=== PATIENT | male | born 1965 | race Caucasian/White ===

== ENCOUNTER 2019-09-23 07:46 | Inpatient (IN) | payer MEDICARE ==
[~2019-09-23] VITALS: Ht 185.4 cm; Wt 74.5 kg
[2019-09-23] MEDS ORDERED: FOLIC ACID1 MG PO (07:57)
[2019-09-23] MEDS ORDERED: LIPITOR80 MG PO (07:57)
[2019-09-23] MEDS ORDERED: VITAMIN B-12500 MCG PO (07:57)
[2019-09-23] MEDS ORDERED: ZETIA10 MG PO (07:57)
[2019-09-23] MEDS ORDERED: BUPROPION HCL75 MG PO (07:58)
[2019-09-23] MEDS ORDERED: FERROUS SULFAT325 MG PO (07:58)
[2019-09-23] MEDS ORDERED: OXYCONTIN10 MG PO (07:59)
[2019-09-23] MEDS ORDERED: MULTI-DAY VITAM1 TAB PO (07:59)
[2019-09-23] MEDS ORDERED: XANAX0.25 MG PO (08:00)
[2019-09-23] MEDS ORDERED: REMERON15 MG PO (08:00)
[2019-09-23] MEDS ORDERED: COREG6.25 MG PO (08:01)
[2019-09-23] MEDS ORDERED: FUROSEMIDE20 MG PO (08:02)
[2019-09-23 08:35] LABS: BASOPHILS 0.1 % (0-2); EOSINOPHILS 0 % (0-7); HEMOGLOBIN 8.5 g/dL (13.5-17.5); IMMATURE GRANULOCYTES 0.2 % (0-5); LYMPHOCYTES 9.2 % (15-50); MCH 34.3 pg (26.0-34.0); MCHC 31.5 g/dL (31.0-37.0); MCV 108.9 fL (80.0-100.0); MEAN PLATELET VOLUME 10.6 fL (7.4-10.4); NEUTROPHILS 81.5 % (40-80); PLATELET COUNT 156 10x3/uL (130-400); RBC 2.48 10x6/uL (4.20-6.10); RDW 14.5 % (11.5-14.5); WBC 17.8 10x3/uL (4.8-10.8)
[2019-09-23 08:39] LABS: CALC OSMOLALITY 295 mosm/kg (275-300); CALCIUM 9.3 mg/dL (8.5-10.1); CARBON DIOXIDE 26.7 mmol/L (21.0-32.0); CHLORIDE - SERUM 101 mmol/L (98-107); CREATININE - SERUM 2.2 mg/dL (0.6-1.3); GLUCOSE 146 mg/dL (74-106); POTASSIUM - SERUM 3.9 mmol/L (3.5-5.1); SODIUM 140 mmol/L (136-145); UREA NITROGEN 53 mg/dL (7-18); eGFR NON AFRICAN AMERICAN 33 mL/min (90-120)
[2019-09-23 09:03] LABS: ALBUMIN 2.9 g/dL (3.4-5.0); ALKALINE PHOSPHATASE 109 U/L (30-120); ALT (SGPT) 29 U/L (10-68); AMYLASE - SERUM 25 U/L (25-115); BILIRUBIN - TOTAL 2.79 mg/dL (0.2-1.3); CKMB 0.6 U/L (0.0-3.6); CREATINE KINASE 34 UL (21-232); LIPASE 58 U/L (73-393); PROTEIN - SERUM 7.2 g/dL (6.4-8.2); TROPONIN-I 0.036 ng/mL (0.000-0.060)
[2019-09-23 09:25] LABS: APTT 33.2 SECONDS (22.8-39.4); INR 1.33 (0.85-1.17); PROTIME 16.4 SECONDS (11.6-15.0)
[2019-09-23 09:37] VITALS: BP 136/80
[2019-09-23 10:30] VITALS: BP 133/86
[2019-09-23 11:30] VITALS: BP 138/86
[2019-09-23 12:20] LABS: BILIRUBIN NEGATIVE (NEGATIVE); GLUCOSE NEGATIVE (NEGATIVE); KETONE NEGATIVE (NEGATIVE); NITRITE NEGATIVE (NEGATIVE); SPECIFIC GRAVITY 1.015 (1.005-1.020)
[2019-09-23 12:21] LABS: BACTERIA FEW /hpf (NEGATIVE); EPITHELIAL CELLS 0-5 /hpf (0-5); RED CELLS - URINE 0-5 /hpf (0-5)
[2019-09-23 15:23] VITALS: BP 132/77; BMI 22.4
--- NOTE | 2019-09-23 19:30 | NUR ---
PT IN BED, AAO X 2, RESP EVEN AND UNLABORED. NO DISTRESS NOTED, CL IN REACH, SR UP X 2.
[2019-09-23 21:12] VITALS: BP 117/68
[2019-09-24] VITALS (16 sets, daily range): BP systolic 107–183; BP diastolic 68–102; Ht 185.4 cm; Wt 74.5 kg
--- NOTE | 2019-09-24 05:00 | NUR ---
I have reviewed this patient and I concur with the Shift Assessment completed by the Licensed Practical Nurse today this shift.
--- NOTE | 2019-09-24 07:31 | NUR ---
PT RESTING PEACEFULLY, LYING IN BED, EYES CLOSED, BREATHS EVEN/REGULAR AND UNLABORED. NO SIGNS OR SYMPTOMS OF ACUTE DISTRESS NOTED AT THIS TIME. CL IN REACH,S RX2, NO FAMILY AT BEDSIDE.
[2019-09-24 09:04] LABS: ALBUMIN 2.5 g/dL (3.4-5.0); ANION GAP 12.6 mmol/L (8-16); BILIRUBIN - TOTAL 1.62 mg/dL (0.2-1.3); CALCIUM 8.3 mg/dL (8.5-10.1); CARBON DIOXIDE 26.8 mmol/L (21.0-32.0); CREATININE - SERUM 1.4 mg/dL (0.6-1.3); POTASSIUM - SERUM 3.4 mmol/L (3.5-5.1); PROTEIN - SERUM 6.4 g/dL (6.4-8.2)
--- NOTE | 2019-09-24 09:24 | NUR ---
PT URNITATED ON SELF, AID WAS ASSISTING WITH CLEAN UP, STOOD PT UP AND PT HAD A LARGE DARK, TAR STOOL. POSTIIVE FOR OCCULT BLOOD, PUNGENT ODOR REMINSCENT OR GI BLEED. SPOKE WITH IVON FERREIRA, WILL CNT TO MONITOR.
[2019-09-24 09:34] LABS: BASOPHILS 0.1 % (0-2); EOSINOPHILS 0.2 % (0-7); HEMATOCRIT 20.9 % (42.0-54.0); IMMATURE GRANULOCYTES 0.1 % (0-5); LYMPHOCYTES 13.7 % (15-50); MCH 35.3 pg (26.0-34.0); MCHC 32.1 g/dL (31.0-37.0); MEAN PLATELET VOLUME 10.1 fL (7.4-10.4); MONOCYTES 10.4 % (2-11); NEUTROPHILS 75.5 % (40-80); RDW 14.3 % (11.5-14.5)
[2019-09-24 09:36] LABS: WBC 8.4 10x3/uL (4.8-10.8)
[2019-09-24 09:37] LABS: HEMOGLOBIN 6.7 g/dL (13.5-17.5); PLATELET COUNT 98 10x3/uL (130-400)
--- NOTE | 2019-09-24 10:04 | NUR ---
CALLED REPORT TO ICU. WAITING FOR BED TO BE CLEANED, WILL TRANSFER PT.
[2019-09-24 10:30] LABS: PLATELET ESTIMATE DECREASED
--- NOTE | 2019-09-24 11:15 | NUR ---
RECEIVED PT TO ROOM 2305 FROM MED 2 VIA BED. PT DOES NOT APPEAR TO BE IN ANY DISTRESS, HE STATES "I'M NERVOUS ABOUT BEING IN HERE, I MUST REALLY BE SICK IF I'M IN HERE." CALMED PT AND ORIENTED HIM AND HIS SPOUSE TO UNIT. VSS. AT BEDSIDE. WILL CONT TO MONITOR.
--- NOTE | 2019-09-24 12:00 | NUR ---
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 SAMPSON ALSO STATES HE IS COMPLETELY WITH IT WHILE THE PT IS TELLING ME ITS 2017 AND HE IS IN [place] AND HE DOESN'T KNOW WHAT MONTH OR DAY IT IS. REORIENTED PT. NO ACUTE NEEDS OR DISTRESS NOTED AT THIS TIME. WILL CONT TO MONITOR.
--- NOTE | 2019-09-24 13:00 | NUR ---
BLOOD INFUSING THROUGH 20G IV I INSERTED IN LEFT FOREARM. NO ACUTE NEEDS OR DISTRESS NOTED AT THIS TIME. VSS. WILL CONT TO MONITOR.
--- NOTE | 2019-09-24 14:00 | NUR ---
LARGE DARK BROWN/GREEN LIQUID BM NOTED. WILL CONT TO MONITOR.
--- NOTE | 2019-09-24 15:00 | NUR ---
REASSESSMENT COMPLETED PER FLOWSHEET, SEE FLOWSHEET FOR INFORMATION. PT DENIES OF ANY ACUTE NEEDS OR DISTRESS AT THIS TIME, PT RESPONSE WHEN ASKED IF HURTING OR IF HE IS OKAY "WELL I'M IN THE HOPSITAL, IN THE ICU SO WHAT DO YOU THINK?" ONCE AGAIN ASKED PT TO STATE IF HE IS IN PHYSICAL PAIN AND WHERE AT AND PT STATES "I HURT ALL OVER, ITS 06/02. I'M HURTING SO BAD. I USUALLY HURT BUT SINCE I'M IN THE HOSPITAL I'M HURTING REALLY BAD." ASKED PT WHAT HE MEANT BY 'HURTING IN THE HOSPITAL' AND PT SAYS "NOTHING I'M FINE." WILL CONT TO MONITOR.
--- NOTE | 2019-09-24 17:00 | NUR ---
PT S/O AT BEDSIDE, NO ACUTE NEEDS OR DISTRESS NOTED AT THIS TIME. VSS. WILL CONT TO MONITOR.
--- NOTE | 2019-09-24 17:31 | NUR ---
PT S/O AT BEDSIDE, STATES "HE IS NOT TO GO TO THE CHANGE AGENT IN THIS HOSPITAL WITHOUT MY KNOWLEDGE. DO YOU UNDERSTAND ME? HE IS NOT TO GO TO THE CHANGE AGENT HERE." WILL CONT TO MONITOR. VSS.
--- NOTE | 2019-09-24 19:24 | NUR ---
LAB HERE TO DRAW POST TRANSFUSION H&H
[2019-09-24 19:29] LABS: BASOPHILS 0.4 % (0-2); EOSINOPHILS 0.4 % (0-7); HEMATOCRIT 24.4 % (42.0-54.0); HEMOGLOBIN 7.9 g/dL (13.5-17.5); LYMPHOCYTES 17.8 % (15-50); MCH 33.1 pg (26.0-34.0); MCHC 32.4 g/dL (31.0-37.0); MEAN PLATELET VOLUME 9.7 fL (7.4-10.4); MONOCYTES 10.7 % (2-11); NEUTROPHILS 70.7 % (40-80)
[2019-09-24 19:30] LABS: MCV 102.1 fL (80.0-100.0); PLATELET COUNT 73 10x3/uL (130-400); RBC 2.39 10x6/uL (4.20-6.10); WBC 5.2 10x3/uL (4.8-10.8)
--- NOTE | 2019-09-24 19:45 | NUR ---
ANSWERED PTS CALL LIGHT HE IS REQUESTING PAIN MED. INFORMED IT WAS NOT TIME YET IT WAS JUST GIVEN AT 6 PM HE STATED NO I HAVENT HAD IN AWHILE. INFORMED IT WAS GIVEN PER ERNESTO AND LENORA. INFORMED WOULD GIVE SOON I COULD AND WOULD GIVE NIGHT TIME MEDS WELL. HE VERBALIZES UNDERSTANING
--- NOTE | 2019-09-24 19:54 | NUR ---
ATTEMEPT TO CALL LAB RESULTS TO PAOLA RAMON NO ANSWER
--- NOTE | 2019-09-24 19:55 | NUR ---
CALLED DR TRAMMELL WITH POST TRANSFUSION H&H RESULTS HE STATED OK FOR NOW RECHECK LAB IN AM
--- NOTE | 2019-09-24 21:45 | NUR ---
ANSWERED CALL LIGHT PT NEEDING BED BARAJAS MINIMAL ASSIST CL IN REACH
--- NOTE | 2019-09-24 22:10 | NUR ---
ANSWERED PTS CALL LIGHT REQUESTING PAIN MED SEE PRN EMAR. PT STATES 9 ON 1-10 SCALE CHRONIC JOINT PAIN
[2019-09-25] VITALS (24 sets, daily range): BP systolic 111–179; BP diastolic 59–111
--- NOTE | 2019-09-25 01:00 | NUR ---
ANSWERED CALL LIGHT PT REQUESTING PAIN MED INFORMED COULDNT GIVE YET REPOSTIONED FOR COMFORT WILL MONITOR CPOC
--- NOTE | 2019-09-25 02:10 | NUR ---
ASSISSTED PT ON BSC HE ASKS IF TIME FOR HIS PAIN MEDICATION PRN PAIN MED GIVEN SEE EMAR
--- NOTE | 2019-09-25 02:30 | NUR ---
PT HAD LARGE LIQUID DARK GREENISH BM COMPLETE LINEN CHANGE PT INCONTINENT OF URINE GETTING LINENS SOILED
--- NOTE | 2019-09-25 03:00 | NUR ---
REASSESSMENT COMPLETE SEE FLOWSHEET CPOC
[2019-09-25 03:52] LABS: BASOPHILS 0.2 % (0-2); EOSINOPHILS 0.7 % (0-7); HEMATOCRIT 24.5 % (42.0-54.0); HEMOGLOBIN 7.9 g/dL (13.5-17.5); IMMATURE GRANULOCYTES 0.2 % (0-5); MCH 33.3 pg (26.0-34.0); MCHC 32.2 g/dL (31.0-37.0); MCV 103.4 fL (80.0-100.0); MEAN PLATELET VOLUME 9.9 fL (7.4-10.4); MONOCYTES 9.8 % (2-11); NEUTROPHILS 71.1 % (40-80); PLATELET COUNT 76 10x3/uL (130-400); RBC 2.37 10x6/uL (4.20-6.10); RDW 19.9 % (11.5-14.5); WBC 4.5 10x3/uL (4.8-10.8)
[2019-09-25 03:53] LABS: CALCIUM 7.9 mg/dL (8.5-10.1); CARBON DIOXIDE 23.4 mmol/L (21.0-32.0); CHLORIDE - SERUM 109 mmol/L (98-107); GLUCOSE 94 mg/dL (74-106); POTASSIUM - SERUM 3.2 mmol/L (3.5-5.1); SODIUM 141 mmol/L (136-145)
[2019-09-25 03:58] LABS: CALC OSMOLALITY 286 mosm/kg (275-300); CREATININE - SERUM 0.9 mg/dL (0.6-1.3); UREA NITROGEN 30 mg/dL (7-18); eGFR NON AFRICAN AMERICAN > 90 mL/min (90-120)
--- NOTE | 2019-09-25 04:45 | NUR ---
ASSISTED PT TO BEDPAN MODERATE LIQUID DARK BM LINEN CHANGE
--- NOTE | 2019-09-25 07:00 | NUR ---
BEDSIDE REPORT RECEIVED. SHIFT ASSESSMENT COMPLETED PER FLOWSHEET, SEE FLOWSHEET FOR INOFRMATION. PT IS VERY CONFUSED THIS AM, PT STATES HE IS IN "[place]", HE DOESN'T KNOW WHAT YEAR IT IS, AND THAT HE NEEDS TO HELP ME LOOK FOR HIS WALLET, JACKET, RADIO, AND PRESCIRTIONS THE DOCTOR WROTE FOR HIM. SEARCHED ROOM, NONE OF THE LISTED ITEMS WERE IN ROOM, CALLED IMTIAZ WALKER FROM MED 2 THAT HAD HIM YESTERDAY AND SHE STATES HIS S/O SAMPSON TOOK HIS WALLET AND KEYS, SHE ALSO STATES THAT'S ALL HE BROUGHT WITH HIM. NO ACUTE NEEDS OR DISTRESS NOTED AT THIS TIME. VSS. WILL CONT TO MONITOR.
--- NOTE | 2019-09-25 09:00 | NUR ---
PT S/O AT BEDSIDE, STATES "HE JUST NEEDS HIS XANAX AND THAT'LL FIX HIM." PT THEN SAYS "BUT WILL THEY TAKE AWAY MY PAIN MEDICINE IF I DO THAT? THEY CAN'T TAKE AWAY MY PAIN MEDICINE." PT S/O REASSURES PT THAT "THEY WON'T DO THAT, THEY;LL STILL GIVE YOUR PAIN PILLS." THEN PT GOES TO SAY MY PAIN IS 10/10 BECAUSE I'M SO ANXIOUS, I DON'T EVEN KNOW WHAT'S GOING ON HERE. WHY AM I HERE IN THIS PLACE? WHAT IS THIS PLACE A SCHOOL?" REORIENTED PT TO HOSPITAL AND GAVE PAIN MEDICATION AFTER CLEARIFYING WITH PT THAT PAIN MEDICATION IS FOR PAIN AND NOT ANXIETY. WILL CONT TO MONITOR.
--- NOTE | 2019-09-25 10:18 | NUR ---
PT YELLING AT NURSES AT NURSES STATION, CHECK ON PT AND HE IS YELLING THAT SOMEONE STOLE HIS PHONE, WHILE THE PHONE IS IN HIS HAND. EXPLAIN TO PT THAT HE HAS HIS PHONE IN HIS HAND, PT STATES THAT "SOMEONE STOLE IT AND CHANGED IT WITH A DIFFERENT PHONE THAT LOOKS EXACTLY LIKE MINE BUT IT ISN'T MINE. PAOLA RAMON AT BEDSIDE. NO ACUTE NEEDS OR DISTRESS NOTED AT THIS TIME. WILL CONT TO MONITOR.
--- NOTE | 2019-09-25 10:28 | NUR ---
PT YELLING AT NURSES AT NURSING STATION ONCE AGAIN, PT STATES "SOMEBODY ANSWER THAT PHONE THAT IS RINGING FADUMO ASKEW" REORIENTED PT TO BEING IN HOSPITAL AND YELLING IS NOT APPROPRIATE AND INSTEAD OF YELLING USE THE CALL LIGHT. PT VERBALIED UNDERSTANDING. WILL CONT TO MONITOR.
--- NOTE | 2019-09-25 11:00 | NUR ---
REASSESSMENT COMPLETED PER FLOWSHEET, SEE FLOWSHEET FOR INFORMATION. PT STILL VERY CONFUSED. PT NO LONGER YELLING AT NURSES, HE IS NOW ON THE PHONE WITH HIS S/O BECAUSE "THEY ARE LOCKING ME UP IN HERE AND THEY WON'T LET ME LEAVE". REORIENTED PT THAT HE IS IN THE HOSPITAL IN ICU AND WE ARE NOT LOCKING HIM UP, WE ARE TRYING TO KEEP HIM SAFE. WILL CONT TO MONITOR.
--- NOTE | 2019-09-25 11:37 | NUR ---
GIVEN PO COREG PER ORDES FOR HTN. WILL CONT TO MONITOR.
--- NOTE | 2019-09-25 13:00 | NUR ---
S/O AT BEDSIDE. WILL CONT TO MONITOR.
--- NOTE | 2019-09-25 15:00 | NUR ---
REASSESSMENT COMPLETED PER FLOWSHEET, SEE FLOWSHEET FOR INFORMATION. PT VERY CONFUSED. PT IS TRYING TO PULL OUT HIS IVS AND TAKE OFF ALL MONITORING EQUIPMENT AND GOWN. REORIENTED PT TO HOSPITAL AND ICU. WILL CONT TO MONITOR.
--- NOTE | 2019-09-25 15:51 | NUR ---
PT PULLED OUT BOTH IVS AND TOOK EVERYTHING OFF, ELECTRODES, GOWN, B/P CUFF, ETC. PT TRIED TO GET UP AND WALK AROUND NAKED, ALSO TRIED TO HIT NURSE, UNSUCCESSFUL. NOTIFIED PAOLA RAMON AND S/O SAMPSON OF UPDATE. NEW ORDERS RECEIVED FROM PAOLA RAMON. WILL CONT TO MONITOR.
--- NOTE | 2019-09-25 17:00 | NUR ---
STARTED 2 NEW 20G IVS IN LEFT FOREARM. PT RESTRAINED AND STILL TRYING TO PICK AT LEADS, AND IVS. WILL CONT TO MONITOR. SAMPSON AT BEDSIDE. BLOOD STARTED IN TRANSFUSION.
--- NOTE | 2019-09-25 18:42 | NUR ---
TEMP WENT FROM 98.1 TO 99.2 DURING BLOOD TRASNFUSION. PAOLA RAMON NOTIFIED, KAILEY LEHMAN NOTIFIED. WILL CONT TO MONITOR. CALLED S/O ASMPSON AND GAVE UPDATE. WILL CONT TO MONITOR.
--- NOTE | 2019-09-25 19:30 | NUR ---
REPORT RECEIVED INITIAL ASSESSMENT OCMPLETE PT AGITATED RESTLESS CONFUSED. YELLING FOR HIS PAIN MED. HAS JUST BEEN GIVEN MEDS SEE EMAR. IN RESTRAINTS PULLING IVS OUT AND O2 OFF. BED LOW POSITION SIDE RAILS UP TIMES 3 CL IN REACH. WILL CONTINUE TO MONITOR
--- NOTE | 2019-09-25 20:18 | NUR ---
PTS SIGNIFICANT OTHER AT BEDSIDE UPDATE GIVEN.
--- NOTE | 2019-09-25 20:45 | NUR ---
PTS SIGNIFICANT OTHER OUT TO NURSES STATION STATES PT NEEDS SOMETHING FOR AGITATION ATIVAN GIVEN EARLIER NOT WORKING. REQUESTING PHYSICIAN TO BE CALLED. CALLED PAOLA RAMON ENTRY LEVEL ACCOUNTANT FOR JASMYNE INFORMED PT AGITATED RESTLESS HYPERTENSIVE COMBATIVE NEW ORDERS NOTED.
--- NOTE | 2019-09-25 21:09 | NUR ---
ATIVAN GIVEN FOR AGITATION RESTLESSNESS AND COMBATIVE PT HAS BROKEN LEFT WRIST RESTRAINT NEW RESTRAINT APPLIED. WILL CONTINUE TO MONITOR
--- NOTE | 2019-09-25 23:15 | NUR ---
PT ANGRY AGITATED YELLING "GIVE ME MY PAIN MEDICINE" ATTEMPTS TO REORIENT AND DEESCALATE NOT SUCCESSFUL OXYCODONE GIVEN PER PRN JUN PT CHEWS THE TABLETS
[2019-09-26] VITALS (24 sets, daily range): BP systolic 108–185; BP diastolic 65–102
--- NOTE | 2019-09-26 01:30 | NUR ---
PT HAS PULLED ANOTHER IV OUT 20 GUAGE STARTED TO LEFT AC AND LEFT FOREARM AFTER 4 ATTEMPTS PT COMBATIVE AND PULLING
--- NOTE | 2019-09-26 03:00 | NUR ---
REASSESSMENT COMPLETE PT HAS HAD BRIEF PERIODS WITH RESTING QUIETLY BUT WAKES UP AGITATED RESTLESS AND ANGRY DEMANDING PAIN MEDICINE. SEE ASSESSMENT FLOWSHEET. CPOC
--- NOTE | 2019-09-26 05:20 | NUR ---
PT AGITATED RESTLESS BLOOD PRESSURE ELEVATED ANGRY AND STATES "MY JOINTS HURT ALL OVER I NEED MY PAIN MEDICINE" MEDICATED PER PRN SEE EMAR
--- NOTE | 2019-09-26 06:00 | NUR ---
PT HAS NOT HAD MUCH URINE OUT GRANT PLACED IMMEDIATE RETURN OF 700 CC URINE. COMPLETE CHG BED BATH AND LINEN CHANGE SMALL BM
[2019-09-26 06:46] LABS: BILIRUBIN NEGATIVE (NEGATIVE); GLUCOSE NEGATIVE (NEGATIVE); KETONE SMALL mg/dL (NEGATIVE); NITRITE NEGATIVE (NEGATIVE); UROBILINOGEN NORMAL (NORMAL)
[2019-09-26 06:48] LABS: ALBUMIN 2.5 g/dL (3.4-5.0); ALKALINE PHOSPHATASE 91 U/L (30-120); ALT (SGPT) 27 U/L (10-68); BILIRUBIN - TOTAL 1.32 mg/dL (0.2-1.3); CALC OSMOLALITY 279 mosm/kg (275-300); CALCIUM 7.8 mg/dL (8.5-10.1); CARBON DIOXIDE 23.7 mmol/L (21.0-32.0); CHLORIDE - SERUM 108 mmol/L (98-107); GLUCOSE 88 mg/dL (74-106); POTASSIUM - SERUM 3.4 mmol/L (3.5-5.1); SODIUM 141 mmol/L (136-145); eGFR NON AFRICAN AMERICAN 82 mL/min (90-120)
[2019-09-26 06:49] LABS: BASOPHILS 0.3 % (0-2); EOSINOPHILS 0.6 % (0-7); HEMATOCRIT 27.2 % (42.0-54.0); HEMOGLOBIN 8.9 g/dL (13.5-17.5); IMMATURE GRANULOCYTES 0.3 % (0-5); LYMPHOCYTES 18.8 % (15-50); MCH 33.6 pg (26.0-34.0); MCHC 32.7 g/dL (31.0-37.0); MCV 102.6 fL (80.0-100.0); MEAN PLATELET VOLUME 10.2 fL (7.4-10.4); PLATELET COUNT 88 10x3/uL (130-400); RBC 2.65 10x6/uL (4.20-6.10); RDW 19.2 % (11.5-14.5)
[2019-09-26 06:51] LABS: UREA NITROGEN 13 mg/dL (7-18)
[2019-09-26 06:56] LABS: WBC 7.2 10x3/uL (4.8-10.8)
--- NOTE | 2019-09-26 09:58 | NUR ---
Nutrition follow-up: Pt sleeping at time of RDN visit Pt remains NPO; NGT in place Labs reviewed Wt: 165# Banana bag, folate Will need nutrition support started within 24 hours if pt remains NPO RDN following.
[2019-09-26 11:08] LABS: PLATELET ESTIMATE DECREASED
[2019-09-26 11:10] LABS: ROULEAUX OCC
--- NOTE | 2019-09-26 11:11 | NUR ---
REASSESSMENT COMPLETE, PT MORE AWAKE AT THIS TIME, DENIES ANY WANTS OR NEEDS, VSS, WILL CON'T TO MONITOR
[2019-09-27] VITALS (23 sets, daily range): BP systolic 94–194; BP diastolic 58–125
[2019-09-27 07:04] LABS: BASOPHILS 0.1 % (0-2); EOSINOPHILS 1.2 % (0-7); HEMATOCRIT 28.7 % (42.0-54.0); HEMOGLOBIN 9.3 g/dL (13.5-17.5); IMMATURE GRANULOCYTES 0.1 % (0-5); LYMPHOCYTES 13.9 % (15-50); MCH 33.3 pg (26.0-34.0); MCHC 32.4 g/dL (31.0-37.0); MCV 102.9 fL (80.0-100.0); MEAN PLATELET VOLUME 10.6 fL (7.4-10.4); MONOCYTES 15.1 % (2-11); NEUTROPHILS 69.6 % (40-80); PLATELET COUNT 96 10x3/uL (130-400); RBC 2.79 10x6/uL (4.20-6.10); RDW 18.4 % (11.5-14.5); WBC 6.7 10x3/uL (4.8-10.8)
[2019-09-27 07:08] LABS: CALC OSMOLALITY 270 mosm/kg (275-300); CALCIUM 7.6 mg/dL (8.5-10.1); CARBON DIOXIDE 24.8 mmol/L (21.0-32.0); CHLORIDE - SERUM 105 mmol/L (98-107); CREATININE - SERUM 0.9 mg/dL (0.6-1.3); GLUCOSE 87 mg/dL (74-106); POTASSIUM - SERUM 3.6 mmol/L (3.5-5.1); SODIUM 137 mmol/L (136-145); eGFR NON AFRICAN AMERICAN > 90 mL/min (90-120)
[2019-09-27 07:09] LABS: UREA NITROGEN 7 mg/dL (7-18)
[2019-09-27 07:13] LABS: HEPATITIS C ANTIBODY 0.1 S/CO RAT (0.0-0.9)
--- NOTE | 2019-09-27 15:20 | NUR ---
REASSESSMENT COMPLETE, PT NOW RESTRAINED, NO OTHER CHANGES NOTED,
[2019-09-28] VITALS (23 sets, daily range): BP systolic 99–179; BP diastolic 42–105
--- NOTE | 2019-09-28 07:14 | NUR ---
LAB HERE FOR MORNING BLOOD DRAW
--- NOTE | 2019-09-28 07:30 | NUR ---
SHIFT ASSESSMENT COMPLETE, PT IS CONFUSED LYING IN BED, ATTEMPTED TO REORIENT, ON RA WITH 97% O2 SAT. ALL PPP, VSS, WILL CON'T TO MONITOR
[2019-09-28 07:42] LABS: CALC OSMOLALITY 273 mosm/kg (275-300); CALCIUM 7.8 mg/dL (8.5-10.1); CARBON DIOXIDE 22.1 mmol/L (21.0-32.0); CHLORIDE - SERUM 108 mmol/L (98-107); CREATININE - SERUM 0.8 mg/dL (0.6-1.3); GLUCOSE 82 mg/dL (74-106); POTASSIUM - SERUM 3.2 mmol/L (3.5-5.1); SODIUM 139 mmol/L (136-145); eGFR NON AFRICAN AMERICAN > 90 mL/min (90-120)
[2019-09-28 07:45] LABS: UREA NITROGEN 5 mg/dL (7-18)
[2019-09-28 07:55] LABS: BASOPHILS 0.3 % (0-2); EOSINOPHILS 1.3 % (0-7); HEMATOCRIT 27.8 % (42.0-54.0); HEMOGLOBIN 9.2 g/dL (13.5-17.5); IMMATURE GRANULOCYTES 0.7 % (0-5); LYMPHOCYTES 13.8 % (15-50); MCH 33.7 pg (26.0-34.0); MCHC 33.1 g/dL (31.0-37.0); MCV 101.8 fL (80.0-100.0); MEAN PLATELET VOLUME 11.4 fL (7.4-10.4); MONOCYTES 16.3 % (2-11); NEUTROPHILS 67.6 % (40-80); PLATELET COUNT 94 10x3/uL (130-400); RBC 2.73 10x6/uL (4.20-6.10); RDW 17.5 % (11.5-14.5)
--- NOTE | 2019-09-28 09:00 | NUR ---
AT BEDSIDE, UPDATE GIVEN
--- NOTE | 2019-09-28 10:11 | NUR ---
Nutrition follow-up: Diet advanced to regular as tolerated this morning for breakfast. Pt continues to be confused; did not eat very much. Nurse reports pts S/O will bring pts favorite food this afternoon. Pt s/p EGD; noted pt with severe, erosive esophagitis, esophageal stricture, gastritis, portal HTN. Wt: 166# Labs reviewed Will provide food choices and honor food preferences. RDN following.
[2019-09-28 10:55] LABS: PLATELET ESTIMATE DECREASED
--- NOTE | 2019-09-28 11:25 | NUR ---
REASSESSMENT COMPLETE, NO CHANGES NOTED, PT SITTING UP IN BED, ON RA WITH 97% O2 SAT.
--- NOTE | 2019-09-28 12:00 | NUR ---
AT BEDSIDE, ASSISTING WITH LUNCH MEAL, PATIENT AWAKE AND FOLLOWING DIRECTIONS, VSS
--- NOTE | 2019-09-28 14:00 | NUR ---
SLEEPING WITH NO SIGN OF DISTRESS, AROUSABLE TO VERBAL STIMUULI, VSS, CALL LIGHT IN REACH,
--- NOTE | 2019-09-28 15:00 | NUR ---
NO ACUTE CHANGE FROM PREVIOUS ASSESSMENT, VSS, NO NEEDS AT THIS TIME, CALL LIGHT IN REACH
--- NOTE | 2019-09-28 17:30 | NUR ---
SLEEPING WITH NO SIGNS OF DISTRESS, VSS, WILL CONTINUE WITH POC
--- NOTE | 2019-09-28 20:06 | MORECARE ---
CASE MANAGEMENT DISCHARGE SUMMARY PATIENT: LUIS JOHNSON UNIT: [id number] ADM DATE: 09/23/19 AGE: 53 : 61 SEX: M ROOM/BED: D.2305 AUTHOR: MELI HERNANDEZ PHYSICIAN: REFERRING PHYSICIAN: TONYA RM MD DATE OF SERVICE: 09/28/19 Discharge Plan Patient Name: LUIS JOHNSON [facility] [facility] 1965 Planned Disposition: Anticipated Discharge Date: Discharge Date: Expected LOS: Initial Reviewer: [email or web address] Initial Review Date: 09/23/2019 Generated: 09/28/19 9:05 pm Comments DCP- Discharge Planning Updated by [email or web address]: Yenny Pulido on 09/28/19 10:[address] Interdisciplinary Team Meeting Note: Patient was admitted on 09-23-2019 with a diagnosis of SEPSIS, UNSPECIFIED ORGANISM. Interdisciplinary Team Meetings were held . In attendance were: Electrical Accessories I Assembler Dietary Nursing Pharmacist Physical Therapy Post Acute Occupational Therapy Respiratory Therapy Speech Therapy CDI IDT recommendation for Discharge Plan: WILL DISCUSS WITH PROVIDER PLAN FOR DISCHARGING PATIENT BACK HOME AND WHAT IS THE DELAY IN DISCHARGE. Anticipated Discharge date: UNKNOWN DCPIA - Discharge Planning Initial Assessment Updated by [email or web address]: Yenny Pulido on 09/28/19 8:00 pm * Is the patient Alert and Oriented? No * How many steps to enter\exit or inside your home? Patient Name: LUIS JOHNSON Page [id number] at 2006 All edits/amendments must be made on the electronic document DICTATION DATE: 09/28/192005 HEAD RESIDENT: JAXSON 09/28/19 2006 RPT#: [id number] DC DATE: STATUS: ADM IN [facility] [address] [place] [address] END OF REPORT
--- NOTE | 2019-09-28 20:19 | MORECARE ---
CASE MANAGEMENT DISCHARGE SUMMARY PATIENT: LUIS JOHNSON UNIT: [id number] ADM DATE: 09/23/19 AGE: 53 : 61 SEX: M ROOM/BED: D.2305 AUTHOR: MELI HERNANDEZ PHYSICIAN: REFERRING PHYSICIAN: TONYA RM MD DATE OF SERVICE: 09/28/19 Discharge Plan Patient Name: LUIS JOHNSON Facility: [facility]:[place] : 1965 Planned Disposition: Anticipated Discharge Date: Discharge Date: Expected LOS: Initial Reviewer: [email or web address] Initial Review Date: 09/23/2019 Generated: 09/28/19 9:18 pm Comments DCP- Discharge Planning Updated by [email or web address]: Yenny Pulido on 09/28/19 7:[address] CM wasn't able to speak to patient's significant other when he was here to visit today. CM attempted to call Kirit Galloway [phone] and didn't get an answer earlier today will try back later. CM will continue to follow and assist as needed with discharge planning / needs. DCP- Discharge Planning Updated by [id number]: Yenny Puildo on 09/28/19 10:[address] Interdisciplinary Team Meeting Note: Patient was admitted on 09-23-2019 with a diagnosis of SEPSIS, UNSPECIFIED ORGANISM. Interdisciplinary Team Meetings were held . In attendance were: Living Supervisor Dietary Nursing Pharmacist Physical Therapy Post Acute Occupational Therapy Respiratory Therapy Speech Therapy CDI IDT recommendation for Discharge Plan: WILL DISCUSS WITH PROVIDER PLAN FOR DISCHARGING PATIENT BACK HOME AND WHAT IS THE DELAY IN DISCHARGE. Anticipated Discharge date: UNKNOWN DCPIA - Discharge Planning Initial Assessment Updated by [email or web address]: Yenny Pulido on 09/28/19 8:00 pm * Is the patient Alert and Oriented? No * How many steps to enter\exit or inside your home? Last DP export: 09/28/19 7:06 p Patient Name: LUIS JOHNSON Page [phone] at 2019 All edits/amendments must be made on the electronic document DICTATION DATE: 09/28/19 2018 PROGRAM MANAGEMENT MANAGER: JAXSON 09/28/19 2018 RPT#: [id number] DC DATE: STATUS: ADM IN [facility] [address] [place] [address] END OF REPORT
[2019-09-29] VITALS (24 sets, daily range): BP systolic 82–151; BP diastolic 57–93
[2019-09-29 03:55] LABS: HEMATOCRIT 32.4 % (42.0-54.0); HEMOGLOBIN 10.8 g/dL (13.5-17.5); MCH 34.3 pg (26.0-34.0); MCHC 33.3 g/dL (31.0-37.0); MCV 102.9 fL (80.0-100.0); MEAN PLATELET VOLUME 10.9 fL (7.4-10.4); NEUTROPHILS 72.4 % (40-80); RBC 3.15 10x6/uL (4.20-6.10); RDW 17.8 % (11.5-14.5); WBC 6.1 10x3/uL (4.8-10.8)
[2019-09-29 03:59] LABS: PLATELET COUNT 121 10x3/uL (130-400)
[2019-09-29 04:09] LABS: ALBUMIN 2.3 g/dL (3.4-5.0); ALKALINE PHOSPHATASE 94 U/L (30-120); ALT (SGPT) 58 U/L (10-68); BILIRUBIN - TOTAL 0.81 mg/dL (0.2-1.3); CALC OSMOLALITY 275 mosm/kg (275-300); CALCIUM 7.7 mg/dL (8.5-10.1); CARBON DIOXIDE 23.6 mmol/L (21.0-32.0); CHLORIDE - SERUM 109 mmol/L (98-107); CREATININE - SERUM 0.9 mg/dL (0.6-1.3); GLUCOSE 95 mg/dL (74-106); POTASSIUM - SERUM 3.2 mmol/L (3.5-5.1); SODIUM 140 mmol/L (136-145); UREA NITROGEN 4 mg/dL (7-18); eGFR NON AFRICAN AMERICAN > 90 mL/min (90-120)
--- NOTE | 2019-09-29 07:30 | NUR ---
REPORT RECEIVED. PT RESTING QUIETLY. HAS TRACH TO ROOM AIR. GRANT IN PLACE. CURRENTLY IN SOFT WRIST RESTRAINTS. ASKS FOR PAIN MEDICATION. WILL GIVE WHEN AVAILABLE. VSS. WILL CONTINUE TO MONITOR.
--- NOTE | 2019-09-29 12:46 | NUR ---
DISCUSSED COREG AND LOWERING PT'S BP. GONZALO STATES HE AND DR RM HAD TAKEN PT DOWN TO 6.125 AND POSSIBLY WILL BE LOWERING. WILL SPEAK WITH WHOEVER IS ASSOCIATE JAVA DEVELOPER FOR DR RM'S GROUP.
[2019-09-30] VITALS (16 sets, daily range): BP systolic 109–177; BP diastolic 68–108
[2019-09-30 03:34] LABS: BASOPHILS 0.2 % (0-2); EOSINOPHILS 0.4 % (0-7); HEMATOCRIT 26.6 % (42.0-54.0); IMMATURE GRANULOCYTES 0.1 % (0-5); LYMPHOCYTES 10.5 % (15-50); MCH 32.8 pg (26.0-34.0); MCHC 31.6 g/dL (31.0-37.0); MCV 103.9 fL (80.0-100.0); MEAN PLATELET VOLUME 10.8 fL (7.4-10.4); NEUTROPHILS 74.8 % (40-80); RBC 2.56 10x6/uL (4.20-6.10); RDW 17.2 % (11.5-14.5)
[2019-09-30 03:47] LABS: ANION GAP 7.1 mmol/L (8-16); CALCIUM 7.1 mg/dL (8.5-10.1); CARBON DIOXIDE 25.6 mmol/L (21.0-32.0); HEMOGLOBIN 8.4 g/dL (13.5-17.5); PLATELET COUNT 165 10x3/uL (130-400)
[2019-09-30 04:06] LABS: CREATININE - SERUM 1.2 mg/dL (0.6-1.3)
[2019-09-30 04:08] LABS: POTASSIUM - SERUM 2.7 mmol/L (3.5-5.1)
--- NOTE | 2019-09-30 04:20 | NUR ---
CRITICAL RECEIVED. POTASSIUM REPLACED.
--- NOTE | 2019-09-30 10:10 | NUR ---
Nutrition follow-up: Diet: Regular PO intake 100% of meals; pt ate 2 breakfasts this morning. Labs reviewed WT: 166# PO intake good. RDN following.
--- NOTE | 2019-09-30 11:53 | NUR ---
0700 BEDSIDE REPORT OBTAINED FROM BAKARI PAPER INSERTER COMPLETE REMAINS IN BED AT PRESENT
--- NOTE | 2019-09-30 11:59 | NUR ---
0900 S.O. AT BEDSIDE REQUESTING GRANT TAKEN OUT VALERIE BARTHOLOMEW REMOVED GRANT DTV
--- NOTE | 2019-09-30 12:29 | NUR ---
1100 RESTING QUIETLY WITH EYES CLOSED
--- NOTE | 2019-09-30 12:30 | NUR ---
1300 S.O. AT BEDSIDE ASSISTING WITH LUNCH
--- NOTE | 2019-09-30 14:35 | NUR ---
1100 RICARDO CASTRO NOTIFIED FOR TRANSFER ORDERS OUT OF ICU NEW ORDERS NOTED TO TRANSFER TO FLOOR
--- NOTE | 2019-09-30 14:57 | NUR ---
Rehab Note- Acute Inpatient Acute prescreen order received. The patient is noted continued with ETOH withdrawls, discussed on IDT meeting dc plans and maybe best for patient's cognition to return home in a familiar environment. Not appropriate at this time for inpatient acute rehab, will follow at this time. Thank you for this referral! Jenae White RN Clinical Liaison, [facility]
--- NOTE | 2019-09-30 15:50 | NUR ---
1400 STANDING WITH PT TO ASSIST
--- NOTE | 2019-09-30 16:09 | MORECARE ---
CASE MANAGEMENT DISCHARGE SUMMARY PATIENT: LUIS JOHNSON UNIT: [id number] ADM DATE: 09/23/19 AGE: 53 : 61 SEX: M ROOM/BED: D.2305 AUTHOR: DAVID,DOC PHYSICIAN: REFERRING PHYSICIAN: TONYA RM MD DATE OF SERVICE: 09/30/19 Discharge Plan Patient Name: LUIS JOHNSON Facility[facility]:[place] : 1965 Planned Disposition: Anticipated Discharge Date: Discharge Date: Expected LOS: Initial Reviewer: [email or web address] Initial Review Date: 09/23/2019 Generated: 09/30/19 5:08 pm Comments DCP- Discharge Planning Updated by [email or web address]: Yenny Pulido on 09/28/19 7:[address] CM wasn't able to speak to patient's significant other when he was here to visit today. CM attempted to call Kiritvick Galloway [phone] and didn't get an answer earlier today will try back later. CM will continue to follow and assist as needed with discharge planning / needs. DCP- Discharge Planning Updated by [email or web address]: Yenny Pulido on 09/28/19 10:[address] Interdisciplinary Team Meeting Note: Patient was admitted on 09-23-2019 with a diagnosis of SEPSIS, UNSPECIFIED ORGANISM. Interdisciplinary Team Meetings were held . In attendance were: Kosher Butcher Dietary Nursing Pharmacist Physical Therapy Post Acute Occupational Therapy Respiratory Therapy Speech Therapy CDI IDT recommendation for Discharge Plan: WILL DISCUSS WITH PROVIDER PLAN FOR DISCHARGING PATIENT BACK HOME AND WHAT IS THE DELAY IN DISCHARGE. Anticipated Discharge date: UNKNOWN DCPIA - Discharge Planning Initial Assessment Updated by [email or web address]: Yenny Pulido on 09/30/19 4:06 pm * Is the patient Alert and Oriented? No * How many steps to enter\exit or inside your home? 8-10 * PCP JAG * Pharmacy [facility] * Preadmission Environment Home with Family * ADLs Independent * Equipment None * List name and contact numbers for known caregivers / representatives who currently or will assist patient after discharge: KIRIT MADRIG[employer]/ [employer]- [phone] * Verbal permission to speak to the caregivers and representatives has been obtained from the patient. N/A * Community resources currently utilized None * Additional services required to return to the preadmission environment? No * Can the patient safely return to the preadmission environment? Yes * Has this patient been hospitalized within the prior 30 days at any hospital? No Last DP export: 09/28/19 7:18 p Patient Name: LUIS JOHNSON Page [id number] at 1609 All edits/amendments must be made on the electronic document DICTATION DATE: 09/30/191607 CAMERA MACHINIST: JAXSON 09/30/191607 RPT#: [id number] DC DATE: STATUS: ADM IN [facility] [address] [place] [address] END OF REPORT
--- NOTE | 2019-09-30 16:24 | MORECARE ---
CASE MANAGEMENT DISCHARGE SUMMARY PATIENT: LUIS JOHNSON UNIT: [id number] ADM DATE: 09/23/19 AGE: 53 : 61 SEX: M ROOM/BED: D.2305 AUTHOR: DAVID,DOC PHYSICIAN: REFERRING PHYSICIAN: TONYA RM MD DATE OF SERVICE: 09/30/19 Discharge Plan Patient Name: LUIS JOHNSON Facility: [facility]:[place] : 1965 Planned Disposition: Anticipated Discharge Date: Discharge Date: Expected LOS: Initial Reviewer: [email or web address] Initial Review Date: 09/23/2019 Generated: 09/30/19 5:23 pm Comments DCP- Discharge Planning Updated by [id number]: Yenny Pulido on 09/30/19 3:[address] Late Entry 09/29/19 Patient Name: LUIS JOHNSON Admission Status: ER Accout number: [id number] Admission Date: 09-23-2019 : 1965 Admission Diagnosis:SEPSIS, UNSPECIFIED ORGANISM Attending: SAMANTHA Current LOS: 7 Anticipated DC Date: Planned Disposition: Primary Insurance: MEDICARE A & B Discharge Planning Comments: CM called and spoke with patient's SO Kirit Auguste to complete initial dc planning assessment. CM educated patient on the CM role and verbal consent given by patient to complete assessment. Patient lives at home with family. Patient is independent prior to admission. CM discussed availability of home health, rehab services, and medical equipment. Kirit stated that patient might need a walker and home health for PT & OT upon discharge. Kirit made it very clear that he did not feel that the patient is near ready for discharge. Kirit would not agree to any plan at this time he stated that he might consider Inpatient Rehab. Patient will have family to transport home. Patient denied known discharge needs at this time. CM will continue to follow and will assist as needed with dc plans/needs. Ip Architect: Yenny Pulido DCP- Discharge Planning Updated by [id number]: Yenny Pulido on 09/28/19 7:[address] CM wasn't able to speak to patient's significant other when he was here to visit today. CM attempted to call Kirit Galloway [phone] and didn't get an answer earlier today will try back later. CM will continue to follow and assist as needed with discharge planning / needs. DCP- Discharge Planning Updated by [id number]: Yenny Pulido on 09/28/19 10:[address] Interdisciplinary Team Meeting Note: Patient was admitted on 09-23-2019 with a diagnosis of SEPSIS, UNSPECIFIED ORGANISM. Interdisciplinary Team Meetings were held . In attendance were: Ip Architect Dietary Nursing Pharmacist Physical Therapy Post Acute Occupational Therapy Respiratory Therapy Speech Therapy CDI IDT recommendation for Discharge Plan: WILL DISCUSS WITH PROVIDER PLAN FOR DISCHARGING PATIENT BACK HOME AND WHAT IS THE DELAY IN DISCHARGE. Anticipated Discharge date: UNKNOWN DCPIA - Discharge Planning Initial Assessment Updated by [email or web address]: Yenny Pulido on 09/30/19 4:06 pm * Is the patient Alert and Oriented? No * How many steps to enter\exit or inside your home? 8-10 * PCP JAG * Pharmacy [facility] * Preadmission Environment Home with Family * ADLs Independent * Equipment None * List name and contact numbers for known caregivers / representatives who currently or will assist patient after discharge: KIRIT AUGUSTE -SO/ LIFE PARTNER- [phone] * Verbal permission to speak to the caregivers and representatives has been obtained from the patient. N/A * Community resources currently utilized None * Additional services required to return to the preadmission environment? No * Can the patient safely return to the preadmission environment? Yes * Has this patient been hospitalized within the prior 30 days at any hospital? No Last DP export: 09/30/19 3:09 p Patient Name: LUIS JOHNSON Page [id number] at 1624 All edits/amendments must be made on the electronic document DICTATION DATE: 09/30/191622 FABRICATION MACHINE OPERATOR: JAXSON 09/30/19 162 RPT#: [id number] DC DATE: STATUS: ADM IN [facility] [address] [place] [address] END OF REPORT
--- NOTE | 2019-09-30 16:32 | NUR ---
1410 SMALL SMEAR BROWN STOOL NOTED CHANGED LINENS AND PATIENT RETURNED TO BED FOR REST AFTER WASH UP
--- NOTE | 2019-09-30 16:32 | MORECARE ---
CASE MANAGEMENT DISCHARGE SUMMARY PATIENT: LUIS JOHNSON UNIT: [id number] ADM DATE: 09/23/19 AGE: 53 : 61 SEX: M ROOM/BED: D.2305 AUTHOR: DAVID,DOC PHYSICIAN: REFERRING PHYSICIAN: TONYA RM MD DATE OF SERVICE: 09/30/19 Discharge Plan Patient Name: LUIS JOHNSON Facility: [facility]:[place] : 1965 Planned Disposition: Anticipated Discharge Date: Discharge Date: Expected LOS: Initial Reviewer: [email or web address] Initial Review Date: 09/23/2019 Generated: 09/30/19 5:32 pm Comments DCP- Discharge Planning Updated by [email or web address]: Yenny Pulido on 09/30/19 3:[address] CM discussed patient at IDT meeting this am. CM spoke with nursing and Jose PRODUCTION PAINTER of needing a plan for discharge. Nursing will ask Kirit when he visits today if the patient has POA or a legal decision maker or family member d/t the fact that if patient has to have placement h will have to have someone sign paperwork. DCP- Discharge Planning Updated by [id number]: Yenny Pulido on 09/30/19 3:[address] Late Entry 09/29/19 Patient Name: LUIS JOHNSON Admission Status: ER Accout number: [id number] Admission Date: 09-23-2019 : 1965 Admission Diagnosis:SEPSIS, UNSPECIFIED ORGANISM Attending: SAMANTHA Current LOS: 7 Anticipated DC Date: Planned Disposition: Primary Insurance: MEDICARE A & B Discharge Planning Comments: CM called and spoke with patient's SO Kirit Auguste to complete initial dc planning assessment. CM educated patient on the CM role and verbal consent given by patient to complete assessment. Patient lives at home with family. Patient is independent prior to admission. CM discussed availability of home health, rehab services, and medical equipment. Kirit stated that patient might need a walker and home health for PT & OT upon discharge. Kirit made it very clear that he did not feel that the patient is near ready for discharge. Kirit would not agree to any plan at this time he stated that he might consider Inpatient Rehab. Patient will have family to transport home. Patient denied known discharge needs at this time. CM will continue to follow and will assist as needed with dc plans/needs. Grinder Dresser: Yenny Pulido DCP- Discharge Planning Updated by [email or web address]: Yenny Pulido on 09/28/19 7:[address] CM wasn't able to speak to patient's significant other when he was here to visit today. CM attempted to call Kirit Galloway [phone] and didn't get an answer earlier today will try back later. CM will continue to follow and assist as needed with discharge planning / needs. DCP- Discharge Planning Updated by [id number]: Yenny Pulido on 09/28/19 10:[address] Interdisciplinary Team Meeting Note: Patient was admitted on 09-23-2019 with a diagnosis of SEPSIS, UNSPECIFIED ORGANISM. Interdisciplinary Team Meetings were held . In attendance were: Grinder Dresser Dietary Nursing Pharmacist Physical Therapy Post Acute Occupational Therapy Respiratory Therapy Speech Therapy CDI IDT recommendation for Discharge Plan: WILL DISCUSS WITH PROVIDER PLAN FOR DISCHARGING PATIENT BACK HOME AND WHAT IS THE DELAY IN DISCHARGE. Anticipated Discharge date: UNKNOWN DCPIA - Discharge Planning Initial Assessment Updated by [id number]: Yenny Pulido on 09/30/19 4:06 pm * Is the patient Alert and Oriented? No * How many steps to enter\exit or inside your home? 8-10 * PCP JAG * Pharmacy [facility] * Preadmission Environment Home with Family * ADLs Independent * Equipment None * List name and contact numbers for known caregivers / representatives who currently or will assist patient after discharge: KIRIT MADRIGAL/ LIFE PARTNER- [phone] * Verbal permission to speak to the caregivers and representatives has been obtained from the patient. N/A * Community resources currently utilized None * Additional services required to return to the preadmission environment? No * Can the patient safely return to the preadmission environment? Yes * Has this patient been hospitalized within the prior 30 days at any hospital? No Last DP export: 09/30/19 3:24 p Patient Name: LUIS JOHNSON Page [id number] at 1632 All edits/amendments must be made on the electronic document DICTATION DATE: 09/30/19 1632 TRANSPORTATION MUSEUM HELPER: DM 09/30/19 1632 RPT#: [id number] DC DATE: STATUS: ADM IN [facility] [address] [place] [address] END OF REPORT
--- NOTE | 2019-09-30 16:39 | NUR ---
7787 REPORT CALLED TO SHERRIE ON MED SURG TO BE TRANSFERRED TO ROOM 2233
--- NOTE | 2019-09-30 17:48 | NUR ---
[facility] PT STATES THAT GONZALO DOROTHY HIS PARTNER HAS POA ON HIM
--- NOTE | 2019-09-30 17:49 | NUR ---
1549 PATIENT WANTS TO FINISH DINNER BEFORE TRANSFER TO MD
--- NOTE | 2019-09-30 18:14 | NUR ---
RECEIVED PATIENT FROM ICU VIA CHAIR. ACCOMPANIED BY STAFF AND FAMILY. NO C/O PAIN. NO S/S OF ACUTE DISTRESS NOTED. ALERT AND ORIENTED. REGULAR DIET, FEEDER. UP WITH PHYSICAL THERAPY, OR 2 PERSON ASSIST. IV TO LEFT WRIST, BANANA BAG INFUSING @ 125ML/HR. SITE PATENT WITHOUT REDNESS OR SWELLING. TRACH COLLAR, ON RA. DENIES ANY NEEDS AT THIS TIME. CALL LIGHT IN REACH. WILL CONTINUE TO MONITOR.
--- NOTE | 2019-09-30 18:40 | NUR ---
1838 NOTIFIED LEATHA ON MS THAT POTASSIUM RESULTLLED AND NEEDED TO BE TREATED PER ELECTROLYTES PROCOCOL
[2019-10-01] VITALS: BP 185/95
[2019-10-01 04:00] VITALS: BP 164/85
[2019-10-01 06:31] LABS: BASOPHILS 0.3 % (0-2); HEMATOCRIT 29.1 % (42.0-54.0); HEMOGLOBIN 9.2 g/dL (13.5-17.5); IMMATURE GRANULOCYTES 0.2 % (0-5); LYMPHOCYTES 12.5 % (15-50); MCH 32.7 pg (26.0-34.0); MCHC 31.6 g/dL (31.0-37.0); MCV 103.6 fL (80.0-100.0); MEAN PLATELET VOLUME 11.1 fL (7.4-10.4); MONOCYTES 11.5 % (2-11); NEUTROPHILS 74.5 % (40-80); RBC 2.81 10x6/uL (4.20-6.10); RDW 16.8 % (11.5-14.5); WBC 10.1 10x3/uL (4.8-10.8)
[2019-10-01 06:34] LABS: PLATELET COUNT 210 10x3/uL (130-400)
[2019-10-01 06:38] LABS: ANION GAP 10.2 mmol/L (8-16); CALCIUM 7.7 mg/dL (8.5-10.1); CARBON DIOXIDE 22.1 mmol/L (21.0-32.0); CREATININE - SERUM 1.2 mg/dL (0.6-1.3); POTASSIUM - SERUM 3.3 mmol/L (3.5-5.1)
--- NOTE | 2019-10-01 06:42 | NUR ---
ASSESSED AT THE BEGINNING OF THE SHIFT. PT IS CONFUSED AND WAS TRYING TO GET OUT OF BED ALL NIGHT. HE IS BELIGERENT AND DEMANDING TO GET UP. ONCE HE WAS ASSISTED UP TO THE BSC AND HAD A BM BUT HE WAS VERY WOBBLY AND IT NEEDS TO BE A TWO PERSON ASSIST TO BE SAFE. MD WAS CALLED EARLY IN THE EVENING AND AN ORDER WAS TAKEN TO GIVE HIM A 2 MG DOSE OF ATIVAN AFTER TELLING HIM THE 1 MG OF ATIVAN DID NOTHING TO HELP. HE HAS BEEN UP AND SETTING OFF THE BED ALARM WANTING TO GO HOME. YOU CAN NOT REASON WITH HIM. HIS IV HAD TO BE RESTARTED IN THE RT A/C AND HE ALMOST PULLED IT OUT THIS MORNING. WE HAVE HIM IN BED NOW HOPFULLY TILL AFTER BREAKFAST UNLESS HE FORGETS HE IS WAITING FOR BREAKFAST.
--- NOTE | 2019-10-01 07:38 | NUR ---
SLEEPING, IV INFUSING, NO DISTRESS NOTED, CONT TO MONITOR BEHAVIORS
[2019-10-01 08:30] VITALS: BP 161/88
[2019-10-01 12:30] VITALS: BP 159/92
--- NOTE | 2019-10-01 15:39 | NUR ---
PT UNSAFE, TRYING TO CLIMB OUT END OF BED, TRYING TO STAND UP, PT WEAK, BED ALARM IN PLACE, CONT TO MONITOR, MEDICATED WITH ATIVAN 1MG WITH NO NOTICE OF SEDATION
[2019-10-01 17:39] VITALS: BP 135/92
--- NOTE | 2019-10-01 18:00 | NUR ---
NO VOID THIS SHIFT, BLADDER [id number], NEW ORDER TO CATH PRN, CONT TO MONITOR
--- NOTE | 2019-10-01 19:27 | NUR ---
RESPONDED TO PATIENT'S BED ALARM. PATIENT ATTEMPTING TO CLIMB OUT OF BED. NON DESTRUCTIVE TESTING SUPERVISOR AND I ASSISTED PATIENT BACK INTO BED. PATIENT HAD INCONTINENT VOID. CHANGED WET PADS AND SOILED GOWN. PATIENT DENIES OTHER NEEDS AT THIS TIME. BED IN LOWEST POSITION, CALL LIGHT WITHIN REACH, AND BED ALARM ON. PATIENT IS CONFUSED AT THIS TIME AND DENIES NEEDS. WILL CONTINUE TO [facility].
[2019-10-01 20:00] VITALS: BP 155/96
[2019-10-02] VITALS: BP 158/95
--- NOTE | 2019-10-02 02:34 | NUR ---
CLEANED PATIENT UP AFTER INCONTINENT VOID
[2019-10-02 04:00] VITALS: BP 161/105
[2019-10-02 05:32] LABS: BASOPHILS 0.4 % (0-2); EOSINOPHILS 1.4 % (0-7); HEMATOCRIT 29.3 % (42.0-54.0); HEMOGLOBIN 9.3 g/dL (13.5-17.5); IMMATURE GRANULOCYTES 0.2 % (0-5); LYMPHOCYTES 12.9 % (15-50); MCHC 31.7 g/dL (31.0-37.0); MCV 103.9 fL (80.0-100.0); MEAN PLATELET VOLUME 10.7 fL (7.4-10.4); MONOCYTES 9.1 % (2-11); PLATELET COUNT 226 10x3/uL (130-400); RBC 2.82 10x6/uL (4.20-6.10); RDW 16.9 % (11.5-14.5)
[2019-10-02 05:49] LABS: ANION GAP 11.9 mmol/L (8-16); CALCIUM 7.9 mg/dL (8.5-10.1); CARBON DIOXIDE 21.4 mmol/L (21.0-32.0); CREATININE - SERUM 1.2 mg/dL (0.6-1.3); POTASSIUM - SERUM 3.3 mmol/L (3.5-5.1)
--- NOTE | 2019-10-02 07:33 | NUR ---
RESTING IN BED, ENC PT TO STAY LAYING DOWN, MVI INFUSING, CONT TO MONITOR
[2019-10-02 08:29] VITALS: BP 140/85
[2019-10-02 10:41] LABS: POTASSIUM - SERUM 3.6 mmol/L (3.5-5.1); VANCOMYCIN - TROUGH 14.4 ug/mL (10.0-20.0)
[2019-10-02 12:14] VITALS: BP 158/88
--- NOTE | 2019-10-02 15:00 | NUR ---
PT ANGRY, REFUSING TO MOVE UP INTO THE BED AND LAY DOWN, IV INFUSING, DIFFERENT STAFF APPROACHED PT, STRIKING OUT AT ONE NURSE, JOSE SUSPICIOUS OF STAFF, AMINA PORT PATROL OFFICER AWARE, NEW ORDERS NOTED TO DECREASE LIBRIUM BUT DIDNT WANT TO MEDICATE PT FURTHER AT THIS TIME, PT CONT BEHAVIORS, WANTING TO GO OUTSIDE, LOOKING OUT INTO THE HALLS, REFUSING TO BELIEVE THIS IS A HOSPITAL, NEW ORDERS NOTED FROM AMINA, MEDICATED WITH HALDOL IM, CONT TO MONITOR
--- NOTE | 2019-10-02 15:33 | NUR ---
PT SLEEPING AT PRESENT, CONT TO MONITOR
[2019-10-02 16:20] VITALS: BP 145/87
--- NOTE | 2019-10-02 18:16 | NUR ---
RESTING IN BED, EYES CLOSED, NO DISTRESS NOTE
--- NOTE | 2019-10-02 19:32 | NUR ---
RESPONDED TO PATIENT'S BED ALARM SOUNDING. PATIENT VOIDED ON BEDDING. CLEANED PATIENT UP AND CHANGED ALL LINENS. ASSISTED PATIENT BACK TO BED. PATIENT DENIES OTHER NEEDS AT THIS TIME. BED IN LOWEST POSITION AND CALL LIGHT WITHIN REACH. ENCOURAGED THE PATIENT TO CALL IF HE HAS NEEDS. WILL CONTINUE TO MONITOR.
[2019-10-02 20:00] VITALS: BP 139/88
[2019-10-03] VITALS: BP 133/83
[2019-10-03 04:00] VITALS: BP 143/86
--- NOTE | 2019-10-03 07:00 | NUR ---
ASSESSMENT PER FLOW SHEET. PATIENT IS CONFUSED AND TRYING TO GET OUT OF BED, AGITATION NOTED. MEDS HAVE BEEN GIVEN PER STEFFANY KIMBLE RN,SEE MAR. FALL PREVENTION IN PLACE WITH JENI. DOOR OPEN TO MONITOR
[2019-10-03 08:43] VITALS: BP 148/98
[2019-10-03 10:21] LABS: BASOPHILS 0.4 % (0-2); EOSINOPHILS 1.6 % (0-7); HEMOGLOBIN 9.2 g/dL (13.5-17.5); IMMATURE GRANULOCYTES 0.2 % (0-5); LYMPHOCYTES 10.8 % (15-50); MCH 32.7 pg (26.0-34.0); MCHC 31.7 g/dL (31.0-37.0); MCV 103.2 fL (80.0-100.0); MEAN PLATELET VOLUME 10.3 fL (7.4-10.4); MONOCYTES 10.5 % (2-11); NEUTROPHILS 76.5 % (40-80); PLATELET COUNT 248 10x3/uL (130-400); RBC 2.81 10x6/uL (4.20-6.10); RDW 16.8 % (11.5-14.5); WBC 8.9 10x3/uL (4.8-10.8)
[2019-10-03 10:32] LABS: ANION GAP 9.9 mmol/L (8-16); CALCIUM 7.9 mg/dL (8.5-10.1); CARBON DIOXIDE 23.3 mmol/L (21.0-32.0); CREATININE - SERUM 1.4 mg/dL (0.6-1.3); POTASSIUM - SERUM 3.2 mmol/L (3.5-5.1)
--- NOTE | 2019-10-03 13:14 | NUR ---
IV RESITED TO RIGHT FOREARM X2 STICKS,ASEPTIC TECH 22G. IV RIGHT AC LEAKING,DCD WITH CATH TIP INTACT
--- NOTE | 2019-10-03 14:52 | NUR ---
Nutrition follow-up: Pt continues with agitation and confusion per nursing. Diet: Regular PO intake ~50% average of meals Labs reviewed Wt: 167# +BM Will continue to provide food choices and honor all food preferences. Will offer nutritional supplements. RDN following.
--- NOTE | 2019-10-03 15:04 | NUR ---
SLEEPING,WITHOUT DISTRESS AT PRESENT.DOOR OPEN TO MONITOR
[2019-10-03 20:00] VITALS: BP 160/95
[2019-10-04] VITALS: BP 157/94
[2019-10-04 04:00] VITALS: BP 174/90
[2019-10-04 05:12] LABS: BASOPHILS 0.6 % (0-2); EOSINOPHILS 0.9 % (0-7); HEMATOCRIT 28.3 % (42.0-54.0); HEMOGLOBIN 8.9 g/dL (13.5-17.5); IMMATURE GRANULOCYTES 0.2 % (0-5); LYMPHOCYTES 14.6 % (15-50); MCH 32.5 pg (26.0-34.0); MCHC 31.4 g/dL (31.0-37.0); MCV 103.3 fL (80.0-100.0); MEAN PLATELET VOLUME 10.2 fL (7.4-10.4); MONOCYTES 9.5 % (2-11); NEUTROPHILS 74.2 % (40-80); PLATELET COUNT 282 10x3/uL (130-400); RBC 2.74 10x6/uL (4.20-6.10); RDW 17.1 % (11.5-14.5); WBC 10.2 10x3/uL (4.8-10.8)
[2019-10-04 05:26] LABS: ANION GAP 11.1 mmol/L (8-16); CALCIUM 8.1 mg/dL (8.5-10.1); CARBON DIOXIDE 24.2 mmol/L (21.0-32.0); CREATININE - SERUM 1.1 mg/dL (0.6-1.3); POTASSIUM - SERUM 3.3 mmol/L (3.5-5.1)
--- NOTE | 2019-10-04 08:00 | NUR ---
ASSESSMENT PER FLOW SHEET. PATIENT HAS BEEN TRYING TO GET OUT OF BED. HE IS CONFUSED AND SEEMS REAL DROWSY.FALL PREVENTION IN PLACE WITH JENI MAT. DOOR OPEN.CALL LIGHT IN REACH
[2019-10-04 09:30] VITALS: BP 147/95
--- NOTE | 2019-10-04 12:26 | NUR ---
UP IN CHAIR WITH FAMILY ASSIST.
[2019-10-04 17:51] VITALS: BP 148/90
[2019-10-04 21:55] VITALS: BP 135/94
[2019-10-05] VITALS: BP 191/108
[2019-10-05 04:00] VITALS: BP 156/86
[2019-10-05 06:38] LABS: BASOPHILS 0.5 % (0-2); HEMATOCRIT 28.4 % (42.0-54.0); HEMOGLOBIN 8.9 g/dL (13.5-17.5); IMMATURE GRANULOCYTES 0.2 % (0-5); LYMPHOCYTES 12.2 % (15-50); MCH 32.5 pg (26.0-34.0); MCHC 31.3 g/dL (31.0-37.0); MCV 103.6 fL (80.0-100.0); MEAN PLATELET VOLUME 10.7 fL (7.4-10.4); MONOCYTES 8.7 % (2-11); NEUTROPHILS 77.4 % (40-80); PLATELET COUNT 298 10x3/uL (130-400); RBC 2.74 10x6/uL (4.20-6.10); RDW 17.2 % (11.5-14.5); WBC 11.6 10x3/uL (4.8-10.8)
[2019-10-05 07:06] LABS: ALBUMIN 2.2 g/dL (3.4-5.0); ANION GAP 11.5 mmol/L (8-16); BILIRUBIN - TOTAL 0.77 mg/dL (0.2-1.3); CARBON DIOXIDE 24.2 mmol/L (21.0-32.0); CREATININE - SERUM 1.2 mg/dL (0.6-1.3); POTASSIUM - SERUM 3.7 mmol/L (3.5-5.1); PROTEIN - SERUM 6.6 g/dL (6.4-8.2)
--- NOTE | 2019-10-05 07:40 | NUR ---
PATIENT IS CONFUSED ATEMPTING TO GET UP FROM BED. CALL TO FRIEND TO COME SIT WITH HIM . HE CAME AND SAT FOR A SHORT TIME. THEN LEFT. IV TO RIGHT WRIST WITH MULT VIT AT 75ML/HR. ON ROOM AIR OLD TRACH SIZE 8
--- NOTE | 2019-10-05 08:29 | NUR ---
RESTING IN BED, NO DISTRESS NOTED, REMAINS CONFUSED, MVI INFUSING PER RFA, CONT TO MONITOR SAFETY
[2019-10-05 09:05] VITALS: BP 179/104
[2019-10-05 12:34] VITALS: BP 181/106
--- NOTE | 2019-10-05 13:00 | CN ---
PATIENT NAME:LUIS JOHNSON MEDICAL RECORD: [id number] : [birth year] LOCATION:D.MS [id number] ADMIT DATE: 09/23/19 ACCOUNT: [id number] CONSULTING PHYSICIAN: SANDY OCHOA MD REFERRING PHYSICIAN: TONYA RM MD DATE OF CONSULTATION: 10/04/2019 IDENTIFYING DATA: The patient is 53 years old and he is admitted to the hospital on a voluntary basis. CHIEF COMPLAINT: Combativeness. HISTORY OF PRESENT ILLNESS: The patient initially came to the Emergency Room with weight loss. He does have a history of both hypertension and coronary artery disease. He apparently has become combative and he does admit that he has been combative, but he says so with a great deal of regret and seems to have remorse about his behaviors. 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 He also has a history of alcoholism. He may well have been disinhibited with the benzodiazepine as has already been mentioned, but I also think he is seriously depressed and I know he has been taking the antidepressant, Wellbutrin, I think that is appropriate. He is also taking Remeron and the dose has just been increased, I think that is also appropriate. Given those factors, outpatient treatment would be appropriate for him and I do not view him as acutely dangerous. Obviously what is already being done with watching him for withdrawal is something that should be monitored and possibly a referral to substance abuse treatment is appropriate either on an outpatient or inpatient basis. His prognosis is fairly good if he will stop drinking. Other than that, I think there is little that can be done for him in this setting. TRANSINT:[id number] Voice Confirmation ID: [id number] DOCUMENT ID: [id number] SANDY OCHOA MD at 1300 CC: [id number] DICTATION DATE: 10/04/19 1623 [facility]: 10/05/19 0049 ADM IN [facility] [address] [place] [id number]
--- NOTE | 2019-10-05 14:59 | NUR ---
AGITATED, THINKING ALL DAY THAT HE IS BEING HELD HOSTAGE, NOW WANTING HIS SISTER, CALLED GONZALO , PT ASK GONZALO TO BRING THE ELECTRIC BRAIN WAVE EQUIPMENT MECHANIC CAUSE HE IS A HOSTAGE HERE, PT UP IN DANIE CHAIR ROLLING OUT OF ROOM
[2019-10-05 18:01] VITALS: BP 124/82
[2019-10-05 20:00] VITALS: BP 176/95
[2019-10-06] VITALS: BP 186/90
--- NOTE | 2019-10-06 00:30 | NUR ---
I have reviewed this patient and I concur with the Shift Assessment completed by the Licensed Practical Nurse today this shift.
--- NOTE | 2019-10-06 01:17 | NUR ---
PT RESTING IN BED. EYES CLOSED. NO SIGNS OF DISTRESS. BREATHING EVEN AND ULABORED. TACH PRESENT. CLEAN DRY AND INTACT. LUNG SOUNDS CLEAR. BOWEL SOUNDS ACTIVE. WILL CONTINUE PLAN OF CARE. CALL LIGHT IN REACH. BED LOWERED AND LOCKED BED RAILS UPX3. JENI ALARM ON. YELLOW GOWN ON. FALL PRECAUTIONS IN PLACE.
--- NOTE | 2019-10-06 02:00 | NUR ---
PT PULLED OUT IV. NEW IV SITED LT FA 22G. ATTEMPTS X1. PT TOLERATED WELL. JENI ALARM ON. BED RAILS UPX3. CALL LIGHT IN REACH.
[2019-10-06 04:00] VITALS: BP 173/101
[2019-10-06 05:52] LABS: BASOPHILS 0.8 % (0-2); EOSINOPHILS 1.7 % (0-7); HEMATOCRIT 32.7 % (42.0-54.0); HEMOGLOBIN 10.3 g/dL (13.5-17.5); IMMATURE GRANULOCYTES 0.2 % (0-5); LYMPHOCYTES 14.9 % (15-50); MCH 32.7 pg (26.0-34.0); MCHC 31.5 g/dL (31.0-37.0); MCV 103.8 fL (80.0-100.0); MEAN PLATELET VOLUME 10.8 fL (7.4-10.4); MONOCYTES 9.8 % (2-11); NEUTROPHILS 72.6 % (40-80); PLATELET COUNT 317 10x3/uL (130-400); RBC 3.15 10x6/uL (4.20-6.10); RDW 17.2 % (11.5-14.5); WBC 10.7 10x3/uL (4.8-10.8)
--- NOTE | 2019-10-06 06:39 | NUR ---
PT PULLED OUT IV AGAIN. WILL RESITE LATER.
[2019-10-06 06:44] LABS: CALCIUM 8.5 mg/dL (8.5-10.1); CARBON DIOXIDE 24.5 mmol/L (21.0-32.0); CHLORIDE - SERUM 113 mmol/L (98-107); CREATININE - SERUM 1.1 mg/dL (0.6-1.3); GLUCOSE 78 mg/dL (74-106); POTASSIUM - SERUM 3.2 mmol/L (3.5-5.1); SODIUM 146 mmol/L (136-145); eGFR NON AFRICAN AMERICAN 74 mL/min (90-120)
[2019-10-06 06:45] LABS: CALC OSMOLALITY 286 mosm/kg (275-300); UREA NITROGEN 4 mg/dL (7-18)
[2019-10-06 08:00] VITALS: BP 170/87
--- NOTE | 2019-10-06 08:52 | NUR ---
PT ALERT WITH CONFUSION UPON ENTERING. PARTNER IN ROOM HELPING PT UP TO BEDSIDE CHAIR TO EAT BREAKFAST. MORNING MEDICATION ADMINISTERED AT THIS TIME, NO DIFFICULTIES. PT HAS NO IV AND IS ON ROOM AIR. DENIES ANY NEEDS. WILL CONTINUE TO MONITOR.
[2019-10-06 12:01] VITALS: BP 149/79
--- NOTE | 2019-10-06 12:01 | NUR ---
ASSESSMENT PERFORMED AT THIS TIME. ADMINISTERED MEDICATION, NO DIFFICULTIES. PT IS RESTING COMFORTABLY IN BED. DENIES ANY NEEDS. WILL CONTINUE TO MONITOR.
--- NOTE | 2019-10-06 14:00 | NUR ---
PT RESTING COMFORTABLY IN BED WITH EYES CLOSED, BREATHING EVEN AND UNLABORED. NO S/S OF DISTRESS NOTED AT THIS TIME. WILL CONTINUE TO MONITOR.
--- NOTE | 2019-10-06 15:07 | NUR ---
PT WAS FOUND IN FLOOR BY OR CREW, BOLIVAR. PT PLACED BACK IN BED. NURSE ASSESSED PT FOR INJURIES, NONE NOTED. PT REPORTS NO PAIN, NOR DID HE GET HURT. PT HAS A BED ALARM THAT HAD BEEN TURNED OFF. PT JENI BED ALARM IS TURNED BACK ON. AND PT IS RESTING IN BED. WILL CONTINUE TO MONITOR.
--- NOTE | 2019-10-06 15:16 | NUR ---
ADMINISTERED MEDICATION AT THIS TIME, NO DIFFICULTIES. WILL CONTINUE TO MONITOR.
--- NOTE | 2019-10-06 15:21 | NUR ---
CALLED POWER AVELARSKIVER HEEL TAP AND INFORMED HER THAT PT HAD FALLEN. SHE SAID SHE WILL BE UP SHORTLY, WILL FILL OUT FORM TOGETHER.
[2019-10-06 17:03] VITALS: BP 129/81
--- NOTE | 2019-10-06 17:56 | NUR ---
ADMINISTERED MEDICATION AT THIS TIME. FAMILY IN THE ROOM, FAMILY GOT THE PATIENT IN THE WHEELCHAIR, ESCORTING PT AROUND THE HOSPITAL.
--- NOTE | 2019-10-06 18:47 | NUR ---
PT IS BACK IN ROOM, SIGNIFICANT OTHER HELPED PT BACK IN BED, JENI ALARM IS TURNED ON. RESTING COMFORTABLY. WILL CONTINUE TO MONITOR.
--- NOTE | 2019-10-06 19:25 | NUR ---
I have reviewed this patient and I concur with the Shift Assessment completed by the Licensed Practical Nurse today this shift.
[2019-10-06 20:00] VITALS: BP 195/95
--- NOTE | 2019-10-06 20:00 | NUR ---
PATIENT RESTING IN BED. NO S/S OF ACUTE DISTRESS. NO C/O AT THIS TIME. PATIENT IS ORIENTATED TO SELF ONLY. PATIENT HAS A TRACH (HAS HAD IT FOR 5 YEARS NOW). PATIENT HAS NO IV ACCESS. PATIENT IS INCONTINENT AT TIMES, AND WILL USE THE URINAL SOMETIMES. PATIENT HAS BRIEF ON. PATIENT IS UP WITH PT DURING THE DAY, BUT IS VERY WEAK AND UNSTEADY. CALL LIGHT WITHIN REACH. BED ALARM ON. WILL CONTINUE TO MONITOR.
[2019-10-07 03:00] VITALS: BP 120/79
[2019-10-07 04:00] VITALS: BP 155/62
--- NOTE | 2019-10-07 04:36 | NUR ---
I have reviewed this patient and I concur with the Shift Assessment completed by the Licensed Practical Nurse today this shift.
[2019-10-07 05:27] LABS: BASOPHILS 0.9 % (0-2); EOSINOPHILS 1.5 % (0-7); HEMATOCRIT 29.1 % (42.0-54.0); HEMOGLOBIN 9.2 g/dL (13.5-17.5); IMMATURE GRANULOCYTES 0.1 % (0-5); LYMPHOCYTES 19.5 % (15-50); MCH 32.2 pg (26.0-34.0); MCHC 31.6 g/dL (31.0-37.0); MEAN PLATELET VOLUME 10.5 fL (7.4-10.4); MONOCYTES 9.5 % (2-11); NEUTROPHILS 68.5 % (40-80); PLATELET COUNT 289 10x3/uL (130-400); RBC 2.86 10x6/uL (4.20-6.10); RDW 16.9 % (11.5-14.5); WBC 9.2 10x3/uL (4.8-10.8)
[2019-10-07 05:31] LABS: MCV 101.7 fL (80.0-100.0)
[2019-10-07 05:38] LABS: ANION GAP 10.2 mmol/L (8-16); CARBON DIOXIDE 26.1 mmol/L (21.0-32.0); CREATININE - SERUM 1.2 mg/dL (0.6-1.3); POTASSIUM - SERUM 3.3 mmol/L (3.5-5.1)
--- NOTE | 2019-10-07 07:00 | NUR ---
RECIEVED PT FROM ASSISTANT CONSTRUCTION SUPERINTENDENT. UPON ENTERING PT IS RESTING IN BED ALERT AND ORIENTED X1 (SELF). JENI BED ALARM, SIZE 8 TRACH (5 YEARS), USES URINAL, SOMETIMES INCONTINENT. PT IS UP WITH PHYSICAL THERAPY. NO IV ACCESS, ROOM AIR. WARMED PT SOUP UP, SAT PT UP TO EAT. DENIES ANY NEEDS. BED IN LOWEST POSITION, BED RAILS X3, CALL LIGHT WITHIN REACH. [facility]
[2019-10-07 08:00] VITALS: BP 155/95
--- NOTE | 2019-10-07 10:42 | NUR ---
PT RESTING IN BED WITH EYES CLOSED UPON ENTERING, EASILY AROUSES TO VOICE AND LIGHT STIMULI. ADMINISTERED MEDICATION, NO DIFFICULTIES. PT IS RECLINED IN BED, RESTING COMFORTABLY UPON EXITING, DENIES ANY NEEDS. BED IN THE LOWEST POSITION, BED RAILS X3, CALL LIGHT WITHIN REACH. WILL CONTINUE TO MONITOR. PLACED NEW ARM BAND ON PATIENT JENI BED ALARM CHECKED, IT IS ON.
[2019-10-07 11:00] VITALS: BP 102/73
--- NOTE | 2019-10-07 11:57 | NUR ---
PT JENI ALARM AND BED ALARM ARE ON AND FUNCTIONAL.
--- NOTE | 2019-10-07 12:19 | NUR ---
PT SIGNIFICANT OTHER MOVED PT TO BEDSIDE CHAIR. CHAIR ALARM IS ON.
--- NOTE | 2019-10-07 12:24 | NUR ---
ADMINISTERED MEDICATION AT THIS TIME. IN BEDSIDE CHAIR. DENIES ANY NEEDS. WILL CONTINUE TO MONITOR.
--- NOTE | 2019-10-07 13:18 | NUR ---
PT IN BEDSIDE CHAIR. ALARM IS ON AND FUNCTIONING.
--- NOTE | 2019-10-07 14:00 | NUR ---
Nutrition follow-up: Diet: Regular PO intake 50-75% of most meals Labs reviewed WT: no new wt Please weigh pt RDN following.
--- NOTE | 2019-10-07 14:29 | NUR ---
PT RESTING IN BED WITH EYES CLOSED, BREATHING EVEN AND UNLABORED. NO S/S OF DISTRESS NOTED AT THIS TIME. BED ALARM AND JENI ALARM ARE ON AND FUNCTIONAL.
--- NOTE | 2019-10-07 15:24 | NUR ---
I have reviewed this patient and I concur with the Shift Assessment completed by the Licensed Practical Nurse today this shift.
--- NOTE | 2019-10-07 16:41 | NUR ---
PT RESTING COMFORTABLY WITH EYES CLOSED, BREATHING EVEN AND NON LABORED, NO S/S OF DISTRESS NOTED AT THIS TIME. AROUSES EASILY TO VOICE. ADMINSITERED MEDICATION, NO DIFFICULTIES. LEFT PT SUPIN IN BED, BED ALARM AND JENI ALARM ARE ON AND FUNCTIONAL. DENIES ANY NEEDS. BED IN LOWEST POSITION, BED RAILS X3, CALL LIGHT WITHIN REACH. WILL CONTINUE TO MONITOR.
--- NOTE | 2019-10-07 17:56 | NUR ---
PT SIGNIFICANT OTHER MOVED PT TO THE BEDSIDE CHAIR, CHAIR ALARM IS ON. SIGNIFICANT OTHER IS IN THE ROOM.
--- NOTE | 2019-10-07 18:31 | NUR ---
ADMINISTERED PAIN MEDICATION. RESTING COMFORTABLY IN BED, DENIES ANY NEEDS. BED IN LOWEST POSITION, BED RAILS X3, CALL LIGHT WITHIN REACH. BED ALARM AND JENI ALARM ARE ON AND FUNCTIONAL. WILL CONTINUE TO MONITOR.
--- NOTE | 2019-10-07 19:00 | NUR ---
ASSESSMENT COMPLETED. BREATHING ROOM AIR. NO IV ACCESS. DENIES ANY NEEDS. CONFUSION NOTED, STATES IT'S 1922 AND BERNICE IRWIN IS PRESIDENT
[2019-10-07 20:00] VITALS: BP 157/97
--- NOTE | 2019-10-07 20:00 | NUR ---
BED ALARM AND JENI BED ALARM ON. PT IN BED
--- NOTE | 2019-10-07 21:00 | NUR ---
BED AND JENI BED ALARM BOTH ON. PT IN BED. CONT TO TRY TO GET OOB
--- NOTE | 2019-10-07 22:00 | NUR ---
BED AND JENI BED ALARM BOTH ON. PATIENT CONT TO GET OOB.
--- NOTE | 2019-10-07 23:00 | NUR ---
BED AND JENI BED ALARM ON. CONT TO GET OOB. DENIES COMPLAINTS. CONFUSION CONT.
[2019-10-08] VITALS: BP 169/99
--- NOTE | 2019-10-08 00:47 | NUR ---
BED AND JENI BED ALARM WENT OFF. PATIENT WAS STANDING UP WALKING. PATIENT WAS SWAYING BY SINK, THIS NURSE WENT TO HELP PATIENT GET STEADY TO ASSIST BACK TO BED AND PT GRABBED THIS NURSE BY THE SHOULDERS AND YELLED "YOU CAN'T KEEP ME HERE." TALKED WITH PATIENT AND ASSISTED BACK TO BED. PT WAS CALM WHEN NURSE LEFT ROOM. BED AND JENI BED ALARM ON WHEN LEFT.
--- NOTE | 2019-10-08 00:50 | NUR ---
GONZALO, PARTNER, WAS CALLED. VOICEMAIL LEFT.
--- NOTE | 2019-10-08 01:51 | NUR ---
PATIENT WAS GETTING UP OOB, BED ALARM HEARD. PATIENT WAS LEANED BY CABINET IN ROOM. ASSISTED PATIENT BACK TO BED. PATIENT BEGAN TO CUSS AND YELL "GONZALO." PATIENT STATED THAT WERE ALL IN ON IT. ASSISTED PATIENT TO BEDSIDE CHAIR AND BROUGHT BY NURSE. AND PATIENT CONT TO GET UP. PT CONFUSED, SAYING "THAT'S JUST KETCHUP FROM EARILER." CALLED SENIOR PROCESS CONTROL TECH FOR DR. RM.
--- NOTE | 2019-10-08 02:00 | NUR ---
SPOKE WITH PAOLA VALENTIN, NO ORDERS FOR GEODON 10 MG NOW. MEDICINE GIVEN PER ORDERS.
--- NOTE | 2019-10-08 03:00 | NUR ---
BED AND JENI BED ALARM ON. PT IN BED WITH EYES CLOSED
--- NOTE | 2019-10-08 04:00 | NUR ---
EYES CLOSED, IN BED. BED AND JENI BED ALARM ON.
--- NOTE | 2019-10-08 06:00 | NUR ---
BED AND JENI BED ALARM ON
--- NOTE | 2019-10-08 06:00 | NUR ---
BED AND JENI BED ALARM ON.
--- NOTE | 2019-10-08 06:05 | NUR ---
PATIENT HAVING SEVERE WHEEZING, STRAIGHTEN PATIENT UP IN BED. AND HAD COUGH. NON PRODUCTIVE COUGH NOTED. EXP WHEEZING NOTED TO ALL LOBES. CALLED DR. RM BRICK MACHINE OPERATOR
--- NOTE | 2019-10-08 06:08 | NUR ---
SPOKE WITH PAOLA DEL VALLE. NEW ORDER FOR CXR. ORDERED PUT IN. PATIENT PULSE OX IT 98% ON ROOM AIR. DENIES ANY DIFFICULTY BREATHING. BUT WHEEZING STILL NOTED.
[2019-10-08 06:22] LABS: EOSINOPHILS 2.3 % (0-7); HEMATOCRIT 29.5 % (42.0-54.0); HEMOGLOBIN 9.1 g/dL (13.5-17.5); IMMATURE GRANULOCYTES 0.1 % (0-5); LYMPHOCYTES 18.3 % (15-50); MCH 31.8 pg (26.0-34.0); MCHC 30.8 g/dL (31.0-37.0); MCV 103.1 fL (80.0-100.0); MONOCYTES 8.1 % (2-11); NEUTROPHILS 70.2 % (40-80); PLATELET COUNT 270 10x3/uL (130-400); RBC 2.86 10x6/uL (4.20-6.10); RDW 16.8 % (11.5-14.5); WBC 9.4 10x3/uL (4.8-10.8)
[2019-10-08 06:28] LABS: ANION GAP 8.6 mmol/L (8-16); CALCIUM 8.1 mg/dL (8.5-10.1); CARBON DIOXIDE 26.9 mmol/L (21.0-32.0); CREATININE - SERUM 1.3 mg/dL (0.6-1.3); POTASSIUM - SERUM 3.5 mmol/L (3.5-5.1)
--- NOTE | 2019-10-08 08:19 | NUR ---
RESTING IN BED, NO DISTRESS NOTED, REMAINS CONFUSED, NO IV ACCESS, TRACH IN PLACE, CONT TO MONITOR
[2019-10-08 08:38] VITALS: BP 153/92
--- NOTE | 2019-10-08 10:49 | NUR ---
RESTING IN BED, BED ALARM ON
[2019-10-08 13:07] VITALS: BP 155/87
--- NOTE | 2019-10-08 15:12 | NUR ---
UP IN CHAIR, ALARM ON, CONT TO MONITOR
[2019-10-08 16:53] VITALS: BP 114/71
[2019-10-08 20:00] VITALS: BP 141/84
--- NOTE | 2019-10-09 01:44 | NUR ---
PATIENT REMAINS CONFUSED AND TRYING TO GET UP OUT OF BED. STAFF HAS CAUGHT HIM MULTABLE TIMES THIS SHIFT BEFORE HE FELL. ON ROOM AIR OLD TRACH WITH CAP SIZE #8 NO IV MD INFORMED. YUSUF FOOD AND DRINKS MULTABLE TIMES THIS SHIFT. BED ALARM IN PLACE AND WORKING. CALL LIGHT AND WATER IN REACH.
[2019-10-09 04:00] VITALS: BP 151/86
[2019-10-09 06:42] LABS: ANION GAP 10.2 mmol/L (8-16); CALCIUM 8.4 mg/dL (8.5-10.1); CARBON DIOXIDE 27.3 mmol/L (21.0-32.0); CREATININE - SERUM 1.2 mg/dL (0.6-1.3); POTASSIUM - SERUM 3.5 mmol/L (3.5-5.1)
[2019-10-09 06:43] LABS: HEMATOCRIT 31.3 % (42.0-54.0); HEMOGLOBIN 9.9 g/dL (13.5-17.5); LYMPHOCYTES 17.3 % (15-50); MCH 32.7 pg (26.0-34.0); MCHC 31.6 g/dL (31.0-37.0); MCV 103.3 fL (80.0-100.0); MEAN PLATELET VOLUME 10.6 fL (7.4-10.4); NEUTROPHILS 71.1 % (40-80); PLATELET COUNT 291 10x3/uL (130-400); RBC 3.03 10x6/uL (4.20-6.10); RDW 17.1 % (11.5-14.5); WBC 12.4 10x3/uL (4.8-10.8)
[2019-10-09 07:15] VITALS: BP 121/73
--- NOTE | 2019-10-09 07:27 | NUR ---
CALL TO [facility] REGULATOR LIP AND GATE BUILDER RETRUNED CALL. NEW ORDER FOR GEODON 10MG IM Q6 HR PRN.
--- NOTE | 2019-10-09 08:58 | NUR ---
UP IN CHAIR, FAMILY IN ROOM, NO DISTRESS NOTED, REMAINS CONFUSED AND UNSAFE
[2019-10-09 12:00] VITALS: BP 114/71
--- NOTE | 2019-10-09 13:20 | NUR ---
HIS FAMILY GAVE HIM A BATH.
[2019-10-09 16:00] VITALS: BP 113/58
--- NOTE | 2019-10-09 16:00 | NUR ---
PT ANGRY, SITTING UP IN CHAIR SETTING OFF ALARM, CURSING AT STAFF, YELLING, STATES STAFF IS LYING, CALL PLACED TO GONZALO, UNABLE TO GIVE IM INJECTION, REFUSEING
--- NOTE | 2019-10-09 17:14 | NUR ---
GONZALO STATES THAT NEURONTIN GIVES PT SEIZURES AND DOESNT WANT IT GIVEN,
--- NOTE | 2019-10-09 17:20 | NUR ---
GONZALO HERE NOT INTERESTED IN PT BEING SENT HOME AT THIS TIME D/T SAFETY CONCERNS
--- NOTE | 2019-10-09 18:05 | NUR ---
PT SLEEPING, NO DISTRESS NOTED, SLEPT THRU SUPPER MEAL, CONT TO MONITOR
--- NOTE | 2019-10-09 21:24 | NUR ---
EYES CLOSED. RESP EVEN AND UNALBORED. NO DISTESS NOTED. TRACH INTACT WITH CAP ON. CL IN REACH. FALL PRECAUTIONS IN PLACE.
--- NOTE | 2019-10-10 00:35 | NUR ---
AWAKE,MORE ALERT THIS AM WITH LESS CONFUSION NOTED. REQUESTING TO GET UP TO WALK. INSTRUCTED PATIENT TO FIORELLA FOR PT TO COME WALK HIN. STATES UNDERSTANDING.WATHCING TV
--- NOTE | 2019-10-10 01:18 | NUR ---
I have reviewed this patient and I concur with the Shift Assessment completed by the Licensed Practical Nurse today this shift.
[2019-10-10 04:00] VITALS: BP 157/84
[2019-10-10 06:03] LABS: ANION GAP 11.1 mmol/L (8-16); CALCIUM 8.1 mg/dL (8.5-10.1); CARBON DIOXIDE 26.7 mmol/L (21.0-32.0); CREATININE - SERUM 1.3 mg/dL (0.6-1.3); POTASSIUM - SERUM 3.8 mmol/L (3.5-5.1)
[2019-10-10 06:10] LABS: HEMATOCRIT 29.7 % (42.0-54.0); HEMOGLOBIN 9.3 g/dL (13.5-17.5); LYMPHOCYTES 13.6 % (15-50); MCH 32.4 pg (26.0-34.0); MCHC 31.3 g/dL (31.0-37.0); MCV 103.5 fL (80.0-100.0); MEAN PLATELET VOLUME 10.7 fL (7.4-10.4); NEUTROPHILS 75.5 % (40-80); PLATELET COUNT 233 10x3/uL (130-400); RBC 2.87 10x6/uL (4.20-6.10); RDW 17.1 % (11.5-14.5); WBC 11.6 10x3/uL (4.8-10.8)
--- NOTE | 2019-10-10 07:00 | NUR ---
CONFUSED TRYING TO GET OUT OF BED THIS AM. UP WITH ASSIST. NO C/O PAIN. NO S/S OF ACUTE DISTRESS NOTED. JENI ALARM ON. TRACH. DENIES ANY NEEDS AT THIS TIME. CALL LIGHT IN REACH. WILL CONTINUE TO MONITOR.
[2019-10-10 09:31] VITALS: BP 132/72
--- NOTE | 2019-10-10 10:38 | NUR ---
I have reviewed this patient and I concur with the Shift Assessment completed by the Licensed Practical Nurse today this shift.
[2019-10-10 14:02] VITALS: BP 122/65
--- NOTE | 2019-10-10 15:39 | NUR ---
PT HAS PATCHES OF SCALY DRY SKIN ON ARMS, LEGS AND SCALP. HE SAYS HIS HIDE TRIMMER TOLD HIM SEVERAL MONTHS AGO IT IS PSORISIS . NO OTHER ISSUES NOTED.
[2019-10-10 18:40] VITALS: BP 121/84
--- NOTE | 2019-10-10 18:49 | NUR ---
CONFUSED, KEEPS TRYING TO GET UP OUT OF BED. NO C/O PAIN. NO S/S OF ACUTE DISTRESS NOTED. JENI ALARM ON. BED IN LOWEST POSITION. CALL LIGHT IN REACH. FALL PRECAUTIONS IN PLACE. DENIES ANY NEEDS AT THIS TIME. WILL CONTINUE TO MONITOR.
[2019-10-10 20:50] VITALS: BP 139/84
[2019-10-11 04:00] VITALS: BP 164/91
[2019-10-11 04:20] LABS: BASOPHILS 0.6 % (0-2); EOSINOPHILS 2.5 % (0-7); HEMATOCRIT 31.8 % (42.0-54.0); IMMATURE GRANULOCYTES 0.2 % (0-5); LYMPHOCYTES 17.6 % (15-50); MCH 32.7 pg (26.0-34.0); MCHC 31.4 g/dL (31.0-37.0); MCV 103.9 fL (80.0-100.0); MEAN PLATELET VOLUME 10.4 fL (7.4-10.4); NEUTROPHILS 73.1 % (40-80); PLATELET COUNT 247 10x3/uL (130-400); RBC 3.06 10x6/uL (4.20-6.10); RDW 16.8 % (11.5-14.5); WBC 12.4 10x3/uL (4.8-10.8)
[2019-10-11 04:47] LABS: ANION GAP 11.3 mmol/L (8-16); CALCIUM 8.2 mg/dL (8.5-10.1); CARBON DIOXIDE 24.9 mmol/L (21.0-32.0); CREATININE - SERUM 1.2 mg/dL (0.6-1.3)
[2019-10-11 04:54] LABS: POTASSIUM - SERUM 3.2 mmol/L (3.5-5.1)
[2019-10-11 08:00] VITALS: BP 163/92
[2019-10-11 12:00] VITALS: BP 155/83
--- NOTE | 2019-10-11 15:15 | NUR ---
PATIENT VERY AGITATED. YELLING AT THIS NURSE AND STAFF. KEEPS GETTING UP AND BECOMING PHYSICALLY AGRESSIVE WHEN STAFF INTERVENES TO PROMOTE SAFETY. THIS NURSE CALLED S/O GONZALO TO NOTIFY HIM OF PATIENT BEHAVIOR. S/O TALKED TO PATIENT ON THE PHONE TO TRY TO CALM PATIENT DOWN, UNSUCCESSFUL. PATIENT BECAME EVEN MORE AGITATED. NOTIFIED PAOLA VALENTIN APN AND ORDERED 10MG GEODON. TOOK 6 STAFF MEMBERS TO RESTRAIN PATIENT TO ADMISTER GEODON. GEODON 10MG GIVEN IM IN LEFT VENTROGLUTEAL. PATIENT STILL VERY AGGRESSIVE WITH STAFF. THIS NURSE CALLED GONZALO AGAIN AND HE STATED HE WOULD COME UP HERE AND SIT WITH PATIENT TO HELP CALM PATIENT DOWN. THIS NURSE STAYED WITH PATIENT UNTIL GONZALO ARRIVED TO PROMOTE SAFETY D/T PATIENT STILL TRYING TO GET OUT OF BED. BED ALARM ON. NO S/S OF ACUTE DISTRESS NOTED. WILL CONTINUE TO MONITOR.
[2019-10-11 16:00] VITALS: BP 146/84
--- NOTE | 2019-10-11 17:45 | NUR ---
I have reviewed this patient and I concur with the Shift Assessment completed by the Licensed Practical Nurse today this shift.
[2019-10-11 20:30] VITALS: BP 152/86
[2019-10-12 00:14] VITALS: BP 150/76
--- NOTE | 2019-10-12 03:50 | NUR ---
I have reviewed this patient and I concur with the Shift Assessment completed by the Licensed Practical Nurse today this shift.
[2019-10-12 06:49] LABS: ANION GAP 12.4 mmol/L (8-16); CALCIUM 8.1 mg/dL (8.5-10.1); CREATININE - SERUM 1.1 mg/dL (0.6-1.3); POTASSIUM - SERUM 3.4 mmol/L (3.5-5.1)
--- NOTE | 2019-10-12 07:20 | NUR ---
PT IS SITTING IN BED. CONFUSED X 3 AND SLIGHTLY AGGITATED WITH INABILITY TO GET OUT OF BED. JENI ALARM IS SOUNDING. PT ASSISTED BACK TO LAYING POSITION WITHOUT DIFFICULTY. PT IS AGREEABLE AT THIS TIME. WITH PLAN OF CARE. ATTEMPT MADE TO REORIENT PT TO PLACE/TIME/SITUATION. TRACH NOTED TO MIDLINE NECK. PT DENIES PRESENCE OF PAIN/N/V AT THIS TIME. PT REFUSES YELLOW GOWN AND IS WEARING PERSONAL CLOTHING AT THIS TIME. PT REFUSING SCDS AT THIS TIME. PT WITHOUT IV ACCESS. BED IS IN THE LOWEST POSITION. CALL LIGHT AND BEDSIDE TABLE ARE WITHIN REACH. SIDE RAILS X 2. ALL FALL PRECAUTIONS IN PLACE. WILL CONT TO MONITOR.
[2019-10-12 08:00] VITALS: BP 149/86
--- NOTE | 2019-10-12 09:17 | NUR ---
PT WET AND DRY SUGAR BIN OPERATOR AT BEDSIDE STATING CONCERNS RELATED TO PT MEDICATION. PT REFUSING GABAPENTIN DUE TO ALLERGY AND WANTS MEDICATION REMOVED FROM PT MAR. WILL ADDRESS. PT WET AND DRY SUGAR BIN OPERATOR GONZALO ALSO REQUESTS REMERON TO NOT BE GIVEN DURING NIGHT MED PASS. WILL PASS ALONG TO NIGHT NURSE.
[2019-10-12 09:39] LABS: BASOPHILS 0.9 % (0-2); EOSINOPHILS 2.2 % (0-7); HEMATOCRIT 29.8 % (42.0-54.0); HEMOGLOBIN 9.1 g/dL (13.5-17.5); IMMATURE GRANULOCYTES 0.2 % (0-5); LYMPHOCYTES 15.8 % (15-50); MCH 31.7 pg (26.0-34.0); MCHC 30.5 g/dL (31.0-37.0); MCV 103.8 fL (80.0-100.0); MONOCYTES 8.5 % (2-11); NEUTROPHILS 72.4 % (40-80); PLATELET COUNT 254 10x3/uL (130-400); RBC 2.87 10x6/uL (4.20-6.10); RDW 16.6 % (11.5-14.5); WBC 11.7 10x3/uL (4.8-10.8)
--- NOTE | 2019-10-12 11:54 | NUR ---
PT ATTEMPTING TO GET OUT OF BED. JENI ALARM IS SOUNDING. PT ASSITED BACK TO BED. PT WITH AGGITATION AND YELLS "YOU DONT CARE ABOUT ME! I DONT WANT TO STAY IN THIS BED ANY MORE". PT GIVEN OPTION FOR ASSISTANCE TO BEDSIDE CHAIR. PT REFUSEES AND STATES "IM BETTER IN THIS BED THAN IN THAT CHAIR". PT INFORMED OF PLAN OF CARE AND FALL PRECAUTIONS. PT STATES "YOU DONT CARE ABOUT ME FALLING". PT EDUCATED ON FALL PRECAUTIONS AND VERBALIZES UNDERSTANDING. PT INFORMED OF NEED FOR IV ACCESS FOR IV ANTIBIOTICS. PT REFUSING PIV INSERTION ATTEMPT AT THIS TIME. WILL CONT TO OBTAIN IV ACCESS. PT IS SITTING ON SIDE OF BED. JENI ALARM IS ON AND WORKING. BED IS IN THE LOWEST POSITION. CALL LIGHT AND BEDSIDE TABLE ARE WITHIN REACH. SIDE RAILS X 2. WILL CONT TO MONITOR.
[2019-10-12 12:00] VITALS: BP 153/87
--- NOTE | 2019-10-12 12:18 | NUR ---
PT ATTEMPTING TO GET OUT OF BED AND WITH AGGITATION WITH ASSISTANCE BACK TO BED. WILL ADMINISTER GEODON PER ORDER. SEE EMAR.
--- NOTE | 2019-10-12 12:47 | NUR ---
PT ATTEMPTING TO GET OUT OF BED. PT REQUESTS TO SIT IN BEDSIDE CHAIR AT THIS TIME. PT ASSISTED TO BEDSIDE CHAIR. PT CONTINUES WITH INCREASED AGGITATION AND NON COMPLIANCE WITH FALL PRECAUTIONS. PT EDUCATED AND REORIENTED TO PLAN OF CARE. JENI ALARM IS ON. WILL CONT TO MONITOR.
--- NOTE | 2019-10-12 13:08 | NUR ---
PAOLA VALENTIN APRN CALLED AND NOTIFIED OF INABILITY TO OBTAIN IV ACCESS. TELEHPONE ORDERS RECD TO ND VANC AND ZOSYN. ORDER OMNICEF 300MG PO BID X 7 DAYS AND AZITHROMYCIN 500MG PO X 1 DOSE AND AZITHROMYCIN 250MG PO Q DAY X 4 DAYS. ALSO NOTIFIED PAOLA DEL VALLE OF PT CLEARANCE REP CONCERN WITH GABAPENTIN ORDER AND ALLERGY. TELEPHONE ORDERS RECD TO ND GABAPENTIN. WILL PLACE ORDERS.
--- NOTE | 2019-10-12 13:59 | NUR ---
PT RESTING COMFORTABLY IN BED. ALL FALL PRECAUTIONS IN PLACE. RESPIRATIONS ARE EVEN AND UNLABORED. BED IS IN THE LOWEST POSITION. CALL LIGHT AND BEDSIDE TABLE ARE WITHIN REACH. SIDE RAILS X 2. WILL CONT TO MONITOR.
--- NOTE | 2019-10-12 14:17 | NUR ---
Nutrition follow-up: Pt aggitated at this time PO intake of regular diet ~50% of meals Labs reviewed Wt: 171# IV access out Will continue to provide food choices and honor food preferences. RDN following.
--- NOTE | 2019-10-12 15:20 | NUR ---
PT GETTING OUT OF BED. JENI ALARM IS SOUNDING. PT ASSISTED TO BEDSIDE CHAIR PER PT REQUEST. ALL FALL PRECAUTIONS IN PLACE. PT DENIES FURTHER NEEDS. WILL CONT TO MONITOR.
--- NOTE | 2019-10-12 15:41 | NUR ---
PT GETTING OUT OF CHAIR. JENI ALARM IS SOUNDING. UNABLE TO ASSIST PT IN TIME AND PT SITS DOWN ONTO FLOOR. PT DID NOT HIT HEAD AND DENIES PRESENCE OF PAIN/INJURY AT THIS TIME. PT ASSISTED BACK TO BEDSIDE CHAIR. ALL FALL PRECAUTIONS IN PLACE. WILL COMPLETE CSTAR AND NOTIFY ALL NECESSARY PEOPLE.
--- NOTE | 2019-10-12 15:43 | NUR ---
PAOLA VALENTIN APRN NOTIFIED OF PT FALL.
--- NOTE | 2019-10-12 15:46 | NUR ---
BANQUET STEWARD NOTIFIED OF PT FALL
--- NOTE | 2019-10-12 15:54 | NUR ---
PT EMERGENCY CONTACT, GONZALO, NOTIFIED OF PT FALL.
[2019-10-12 16:00] VITALS: BP 131/65
--- NOTE | 2019-10-12 16:57 | NUR ---
CSTARS COMPLETED AND FAXED TO HOUSE SOUPERVISOR.
--- NOTE | 2019-10-12 17:45 | MORECARE ---
CASE MANAGEMENT DISCHARGE SUMMARY PATIENT: LUIS JOHNSON UNIT: [id number] ADM DATE: 09/23/19 AGE: 53 : 61 SEX: M ROOM/BED: D.2235 AUTHOR: DAVID,DOC PHYSICIAN: REFERRING PHYSICIAN: TONYA RM MD DATE OF SERVICE: 10/12/19 Discharge Plan Patient Name: LUIS JOHNSON [facility] [facility] 1965 Planned Disposition: Anticipated Discharge Date: Discharge Date: Expected LOS: Initial Reviewer: [email or web address] Initial Review Date: 09/23/2019 Generated: 10/12/19 6:45 pm Comments DCP- Discharge Planning Updated by [id number]: Ramonita Ro on 10/12/19 4:[address] Patient Name: LUIS JOHNSON Admission Status: ER Accout number: [id number] Admission Date: 09-23-2019 : 1965 Admission Diagnosis:SEPSIS, UNSPECIFIED ORGANISM Attending: SAMANTHA Current LOS: 19 Anticipated DC Date: Planned Disposition: Primary Insurance: MEDICARE A & B Discharge Planning Comments: I SPOKE WITH DR. RM ABOUT DISCHARGE PLANNING/NEEDS FOR THIS PATIENT. WE DISCUSSED A DUAL DIAGNOSIS FACILITY WOULD BENEFIT THIS PATIENT. I CALLED THE POA MR. DE LA CRUZ AND HE WAS NOT IN AGREEMENT WITH THIS PLAN. HE DOES NOT FEEL THE PATIENT IS READY FOR DC FROM THIS HOSPITAL TO ANOTHER LEVEL OF CARE. POA WAS IN AGREEMENT FOR THE INPATIENT REHAB HERE BUT HE IS TOO CONFUSED AND NOT APPROPRIATE FOR THIS IP REHAB. MAY NEED TO HAVE A TEAM MEETING INCLUDING PHYSICIAN, RN AND GRANULATOR WITH POA AND PATIENT TO DISCUSS NEXT LEVEL OF CARE PLAN. Ruby Software Developer: Ramonita Ro DCP- Discharge Planning Updated by [id number]: Yenny Pulido on 09/30/19 3:[address] CM discussed patient at IDT meeting this am. CM spoke with nursing and Jose COLORER HIDES AND SKINS of needing a plan for discharge. Nursing will ask Kirit when he visits today if the patient has POA or a legal decision maker or family member d/t the fact that if patient has to have placement h will have to have someone sign paperwork. DCP- Discharge Planning Updated by [id number]: Yenny Pulido on 09/30/19 3:[address] Late Entry 09/29/19 Patient Name: LUIS JOHNSON Admission Status: ER Accout number: [id number] Admission Date: 09-23-2019 : 1965 Admission Diagnosis:SEPSIS, UNSPECIFIED ORGANISM Attending: SAMANTHA Current LOS: 7 Anticipated DC Date: Planned Disposition: Primary Insurance: MEDICARE A & B Discharge Planning Comments: CM called and spoke with patient's SO Kirit Auguste to complete initial dc planning assessment. CM educated patient on the CM role and verbal consent given by patient to complete assessment. Patient lives at home with family. Patient is independent prior to admission. CM discussed availability of home health, rehab services, and medical equipment. Kirit stated that patient might need a walker and home health for PT & OT upon discharge. Kirit made it very clear that he did not feel that the patient is near ready for discharge. Kirit would not agree to any plan at this time he stated that he might consider Inpatient Rehab. Patient will have family to transport home. Patient denied known discharge needs at this time. CM will continue to follow and will assist as needed with dc plans/needs. Ruby Software Developer: Yenny Pulido DCP- Discharge Planning Updated by [id number]: Yenny Pulido on 09/28/19 7:[address] CM wasn't able to speak to patient's significant other when he was here to visit today. CM attempted to call Kirit Galloway [phone] and didn't get an answer earlier today will try back later. CM will continue to follow and assist as needed with discharge planning / needs. DCP- Discharge Planning Updated by [id number]: Yenny Pulido on 09/28/19 10:[address] Interdisciplinary Team Meeting Note: Patient was admitted on 09-23-2019 with a diagnosis of SEPSIS, UNSPECIFIED ORGANISM. Interdisciplinary Team Meetings were held . In attendance were: Ruby Software Developer Dietary Nursing Pharmacist Physical Therapy Post Acute Occupational Therapy Respiratory Therapy Speech Therapy CDI IDT recommendation for Discharge Plan: WILL DISCUSS WITH PROVIDER PLAN FOR DISCHARGING PATIENT BACK HOME AND WHAT IS THE DELAY IN DISCHARGE. Anticipated Discharge date: UNKNOWN DCPIA - Discharge Planning Initial Assessment Updated by [id number]: Yenny Pulido on 09/30/19 4:06 pm * Is the patient Alert and Oriented? No * How many steps to enter\exit or inside your home? 8-10 * PCP JAG * Pharmacy [facility] * Preadmission Environment Home with Family * ADLs Independent * Equipment None * List name and contact numbers for known caregivers / representatives who currently or will assist patient after discharge: KIRIT AUGUSTE -SO/ LIFE PARTNER- [phone] * Verbal permission to speak to the caregivers and representatives has been obtained from the patient. N/A * Community resources currently utilized None * Additional services required to return to the preadmission environment? No * Can the patient safely return to the preadmission environment? Yes * Has this patient been hospitalized within the prior 30 days at any hospital? No Last DP export: 09/30/19 3:32 p Patient Name: LUIS JOHNSON Page [id number] at 7354 All edits/amendments must be made on the electronic document DICTATION DATE: 10/12/191744 PINNER PRINTED CIRCUIT BOARDS: JAXSON 10/12/191744 RPT#: [id number] DC DATE: STATUS: ADM IN [facility] [address] [place] [address] END OF REPORT
[2019-10-12 23:00] VITALS: BP 158/99
--- NOTE | 2019-10-12 23:59 | NUR ---
STAFF HAVING TO REMAIN ONE ON ONE WITH PATIEN. TO [place]. MOVED TO NURSING STATION IN CHAIR. UNEFFECTIVE. SAAVEDRA TO GONZALO JIMENEZ TO ASK FOR SOME ONE TO COME SIT WITH HIM WE CAN NOT PROVIDE ONE ON ONE CAR ON THIS FLOOR. HE SAID THE ONLY WAY HE CAN COME IS IF HE CAN BRING THEIR DOG. EDUCATED THAT THIS STAFF DID NOT THINK THAT HE COULD BUT WOULD CHECH WITH PRINCETON SUPPERVISOR. SHE STATED THAT WE COULD NOT DO THAT GONZALO INFORMED. CALL TO CLIENT ACCOUNT ASSISTANT TRIST[facility] NEW ORDER FOR GEODEN 20MG IM NOW. CALL TO FIELD REPORTER TO INFORM. RETRUNED CALL WITH NEW ORDER FROM TRI[facility] TO SEND TO ICU ROOM 2313. CALL TO GONZALO MESSAGE LEFT.
[2019-10-13] VITALS (14 sets, daily range): BP systolic 105–180; BP diastolic 60–116
[2019-10-13 05:52] LABS: BASOPHILS 0.5 % (0-2); EOSINOPHILS 2.4 % (0-7); HEMOGLOBIN 9.9 g/dL (13.5-17.5); IMMATURE GRANULOCYTES 0.2 % (0-5); LYMPHOCYTES 18.5 % (15-50); MCH 32.1 pg (26.0-34.0); MCHC 30.9 g/dL (31.0-37.0); MCV 103.9 fL (80.0-100.0); MEAN PLATELET VOLUME 10.8 fL (7.4-10.4); MONOCYTES 8.6 % (2-11); NEUTROPHILS 69.8 % (40-80); PLATELET COUNT 247 10x3/uL (130-400); RBC 3.08 10x6/uL (4.20-6.10); RDW 16.5 % (11.5-14.5); WBC 14.1 10x3/uL (4.8-10.8)
[2019-10-13 06:00] LABS: ANION GAP 11.2 mmol/L (8-16); CALCIUM 8.6 mg/dL (8.5-10.1); CARBON DIOXIDE 26.2 mmol/L (21.0-32.0); CREATININE - SERUM 1.2 mg/dL (0.6-1.3); POTASSIUM - SERUM 3.4 mmol/L (3.5-5.1)
--- NOTE | 2019-10-13 07:15 | NUR ---
RESTRAINTS OFF. PT PLACED IN CHAIR. ASSESSMENT PER FLOWSHEET. BREAKFAST GIVEN AND CONSUMED 100 PERCENT.
--- NOTE | 2019-10-13 07:27 | NUR ---
Nutrition follow-up: Pt now in ICU s/p fall One on one observation / pt will not stay in bed Labs reviewed Receiving a regular diet with po intake ~50% of meals Wt: 171# RDN following.
--- NOTE | 2019-10-13 08:00 | NUR ---
UP IN CHAIR NO CO AT TIME. GONZALO AT BEDSIDE. UPDATE GIVEN.
--- NOTE | 2019-10-13 12:00 | NUR ---
UP IN CHAIR EATING LUNCH. GONZALO AT BEDSIDE.
--- NOTE | 2019-10-13 15:00 | NUR ---
PT THINKS THIS IS A NICKERSON SHOP AND GETTING AGITATED TOWARD ME STATES I DIDNT CUT HIS HAIR. REORIENT TO HOSPITAL AND ICU AND SITUATION.
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
--- NOTE | 2019-10-13 19:00 | NUR ---
SHIFT ASSESSMENT COMPLETE. VS STABLE. NO VISUAL CUES OF DISTRESS NOTED. WILL CONTINUE TO MONITOR.
[2019-10-14] VITALS (11 sets, daily range): BP systolic 118–171; BP diastolic 84–99
[2019-10-14 03:54] LABS: BASOPHILS 0.4 % (0-2); EOSINOPHILS 2.3 % (0-7); HEMATOCRIT 30.3 % (42.0-54.0); HEMOGLOBIN 9.2 g/dL (13.5-17.5); IMMATURE GRANULOCYTES 0.2 % (0-5); LYMPHOCYTES 17.5 % (15-50); MCH 31.4 pg (26.0-34.0); MCHC 30.4 g/dL (31.0-37.0); MCV 103.4 fL (80.0-100.0); MEAN PLATELET VOLUME 11.4 fL (7.4-10.4); MONOCYTES 7.9 % (2-11); NEUTROPHILS 71.7 % (40-80); PLATELET COUNT 215 10x3/uL (130-400); RBC 2.93 10x6/uL (4.20-6.10); RDW 16.4 % (11.5-14.5); WBC 12.2 10x3/uL (4.8-10.8)
[2019-10-14 04:13] LABS: ALBUMIN 2.3 g/dL (3.4-5.0); ANION GAP 6.5 mmol/L (8-16); BILIRUBIN - TOTAL 0.66 mg/dL (0.2-1.3); CALCIUM 8.8 mg/dL (8.5-10.1); CREATININE - SERUM 1.1 mg/dL (0.6-1.3); POTASSIUM - SERUM 3.5 mmol/L (3.5-5.1); PROTEIN - SERUM 6.9 g/dL (6.4-8.2)
--- NOTE | 2019-10-14 07:00 | NUR ---
SITTING UP IN BED RESTRAINED. STATES I NEED TO PEE.
--- NOTE | 2019-10-14 07:10 | NUR ---
VOIDED 700 CC. PLACED IN CHAIR UNRESTRAINED.
--- NOTE | 2019-10-14 08:00 | NUR ---
SITTING UP IN CHAIR EATING BREAKFAST. FOLLOWING COMMANDS. EASILY REDIRECTED THIS AM.
--- NOTE | 2019-10-14 10:25 | NUR ---
PT SLEEPING NO DISTRESS NOTED.
--- NOTE | 2019-10-14 13:00 | NUR ---
UP IN CHAIR NO CO AT TIME.
--- NOTE | 2019-10-14 17:00 | NUR ---
GONZALO AT BEDSIDE. PT UP IN CHAIR EATING.
[2019-10-15 03:00] VITALS: BP 137/98
[2019-10-15 03:48] LABS: BASOPHILS 0.7 % (0-2); EOSINOPHILS 3.8 % (0-7); HEMATOCRIT 31.3 % (42.0-54.0); HEMOGLOBIN 9.6 g/dL (13.5-17.5); IMMATURE GRANULOCYTES 0.2 % (0-5); LYMPHOCYTES 19.6 % (15-50); MCH 32.2 pg (26.0-34.0); MCHC 30.7 g/dL (31.0-37.0); MEAN PLATELET VOLUME 10.9 fL (7.4-10.4); MONOCYTES 10.1 % (2-11); NEUTROPHILS 65.6 % (40-80); PLATELET COUNT 178 10x3/uL (130-400); RBC 2.98 10x6/uL (4.20-6.10); RDW 16.4 % (11.5-14.5); WBC 10.3 10x3/uL (4.8-10.8)
[2019-10-15 04:11] LABS: ALBUMIN 2.4 g/dL (3.4-5.0); ALKALINE PHOSPHATASE 112 U/L (30-120); ALT (SGPT) 25 U/L (10-68); BILIRUBIN - TOTAL 0.63 mg/dL (0.2-1.3); CALC OSMOLALITY 280 mosm/kg (275-300); CALCIUM 8.4 mg/dL (8.5-10.1); CARBON DIOXIDE 25.4 mmol/L (21.0-32.0); CHLORIDE - SERUM 110 mmol/L (98-107); GLUCOSE 89 mg/dL (74-106); POTASSIUM - SERUM 3.5 mmol/L (3.5-5.1); PROTEIN - SERUM 7.1 g/dL (6.4-8.2); SODIUM 142 mmol/L (136-145); UREA NITROGEN 10 mg/dL (7-18); eGFR NON AFRICAN AMERICAN 82 mL/min (90-120)
[2019-10-15 07:00] VITALS: BP 137/98
--- NOTE | 2019-10-15 09:44 | NUR ---
0700 REPORT RECIEVED AND CARE ASSUMED OF PATIENT SEE FLOW SHEET FOR SHIFT ASSESMENT FINDINGS.. 0800 GONZALO PTS SIG OTHER IN TO SEE PATIENT.. 0830 BREAKFAST SERVED AND GONZALO ASSISTING PATIENT WITH MEAL 0900 MEDS GIVEN.. 0930 GONZALO GONE HONME AT THIS TIME..
[2019-10-15 11:00] VITALS: BP 123/78
--- NOTE | 2019-10-15 13:53 | NUR ---
1030 SLEEPING IN CHAIR AT THE BEDSIDE.. 1145 AMBULATED WITH PT.. NOTED THAT PATIENT IS WEAK AND APPEARS TO NOT HAVE GOOD CONTROL OVER RIGHT LEG 1200 TEMP 98.5 1230 GONZALO IN UNIT AND ASSISTED PATIENT WITH LUNCH 1330 GONZALO GONE AT THIS TIME.. PT IS DOZING OCCASSIONALLY SPEAKING OUT WITHJ RAMBLING SENTENCES..
[2019-10-15 15:00] VITALS: BP 110/79
--- NOTE | 2019-10-15 17:49 | NUR ---
1430 PT IS BACK IN BED SLEEPING.. 1500 ATIVAN DUE HELD AT THIS TIME PT IS SLEEPING SOUNDLY 1600 CONTINUES TO SLEEP 1700 DINNER SERVED PT AWAKENED AND MED GIVEN.. DINNER OFFERED TO PT SMALL BITES TAKEN HE DID CONSUME 1005 OF ENSURE DRINK.. 1745 ASSISTED OOB TO BSC.. SMALL AMOUNT OF STOOL IN COMMODE.. PT ASSISTED TO CHAIR AT THE BEDSIDE .. CONVERSING BUT VERY CONFUSED TO TIME AND PLACE,,
[2019-10-15 19:00] VITALS: BP 137/81
--- NOTE | 2019-10-15 19:00 | NUR ---
SITTING UP IN BEDSIDE CHAIR. CONFUSION NOTED. ASSESSMENT COMPLETED.
--- NOTE | 2019-10-15 21:00 | NUR ---
SITTING UP IN BEDSIDE CHAIR. TRIED TO GET UP TWICE. REDIRECTED. CHAIR ALARM ON
--- NOTE | 2019-10-15 22:26 | NUR ---
CHG BATH GIVEN WITH COMPLETE LINEN CHANGE. SMALL BM IN BSC NOTED.
[2019-10-15 23:00] VITALS: BP 164/92
--- NOTE | 2019-10-16 01:00 | NUR ---
PATIENT IN BED. GETTING UP SEVERAL TIMES. BED ALARM ON. CONFUSION NOTED.
[2019-10-16 03:00] VITALS: BP 135/82
--- NOTE | 2019-10-16 03:00 | NUR ---
IN BED. EYES CLOSED. BED ALARM ON. VSS.
[2019-10-16 04:41] LABS: BASOPHILS 0.5 % (0-2); EOSINOPHILS 3.5 % (0-7); HEMATOCRIT 28.9 % (42.0-54.0); HEMOGLOBIN 8.7 g/dL (13.5-17.5); IMMATURE GRANULOCYTES 0.4 % (0-5); LYMPHOCYTES 19.7 % (15-50); MCH 31.4 pg (26.0-34.0); MCHC 30.1 g/dL (31.0-37.0); MCV 104.3 fL (80.0-100.0); MEAN PLATELET VOLUME 10.5 fL (7.4-10.4); MONOCYTES 11.3 % (2-11); NEUTROPHILS 64.6 % (40-80); PLATELET COUNT 179 10x3/uL (130-400); RBC 2.77 10x6/uL (4.20-6.10); RDW 16.1 % (11.5-14.5); WBC 7.8 10x3/uL (4.8-10.8)
[2019-10-16 04:43] LABS: ANION GAP 8.2 mmol/L (8-16); CALCIUM 8.1 mg/dL (8.5-10.1); CARBON DIOXIDE 27.2 mmol/L (21.0-32.0); CREATININE - SERUM 1.1 mg/dL (0.6-1.3); POTASSIUM - SERUM 3.4 mmol/L (3.5-5.1)
--- NOTE | 2019-10-16 04:57 | NUR ---
PATIENT AWAKE. BEEN TRYING TO GET UP OOB SINCE LAB DRAWN LAB. BED ALARM ON. CONFUSION NOTED.
[2019-10-16 07:00] VITALS: BP 148/101
[2019-10-16 11:00] VITALS: BP 157/97
[2019-10-16 15:00] VITALS: BP 142/92
--- NOTE | 2019-10-16 18:23 | NUR ---
0700 REPORT RECIEVED AND CARE ASSUMED OF PATIENT.. SEE FLOW SHEET FOR SHIFT ASSESMENT.. PT IS VERY RADICAL AND UNCOOPERATIVE RIGHT AT SHIFT CHANGE... GEODON IM GIVEN AND PATIENT IS PLACED IN THE BED.. 0800PHILLIP HERE AND TALKING WITH PT.. ASSISTING HIM WITH BREAKFAST .. 0830 BATH GIVEN AND LINEN CHANGE DONE.. MEDS AND CLEAN CLOTHERS ARE ON.. WITH EAST ASSISTANCE.. PT BACK IN THE BED 0900 GONZALO GONE AND PATIENT IS SLEEPING.. 1030 AMINA BORING MILL OPERATOR FOR METAL HERE UPDATE GIVEN.. 1200 PATIENT IS SLEEPING.. STILL 1400 AWAKE ASSISTED TO BS AND PT IS FEEDING SELF LUNCH SNACK 1500 CONTINUES IN CHAIR AT THE BEDSIDE.. 1630 FIORELLA AL TV 1700 REFUSING DINNER TRAY 1800 GONZALO HERE UPDATE IS GIVEN..
[2019-10-16 19:00] VITALS: BP 125/76
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
--- NOTE | 2019-10-17 05:20 | NUR ---
1900-ASSESSMENT COMPLETED. SITTING UP IN CHAIR. CONFUSION NOTED. 2100-REFUSED ALL MEDS. ASKED WHAT PILLS THERE WERE. WHEN TOLD PATIENT THERE WAS AN ANTIBIOTIC FOR PNEUMONIA, PATIENT STATED HE DID NOT HAVE PNEUMONIA AND HE WAS NOT TAKING ANY OF THEM. 2300- SITTING UP IN CHAIR. TRYING TO GET UP AT TIMES. REFUSED FOR NURSE TO TAKE VITALS AFTER SEVERAL ATTEMPTS. CHAIR ALARM ON. 0100- SITTING UP IN CHAIR, CHAIR ALARM ON. REFUSING TO GET TO BED. 0300- IN BED. BED ALARM ON. YELLING OUT THAT HIS GIRLFRIEND IS GOING TO BE MAD THAT HE ISN'T HOME. UNABLE TO REORIENT. REFUSED FOR VITAL SIGNS, PATIENT WOULD SQUEEZE HIS ARM TO HIS SIDE WHEN TRIED TO PUT BP CUFF ON. 0500- EYES CLOSED. BED ALARM ON
--- NOTE | 2019-10-17 07:00 | NUR ---
PT REPORT RECEIVED FROM DATA PROCESSING CONTROL CLERK NURSE. NO ACUTE SIGNS OF DISTRESS NOTED. PT RESTING IN BED. RESTRAINTS ON. SHIFT ASSESSMENT COMPLETED. WILL CONTINUE TO MONITOR
[2019-10-17 07:15] LABS: BASOPHILS 0.6 % (0-2); HEMATOCRIT 31.2 % (42.0-54.0); HEMOGLOBIN 9.6 g/dL (13.5-17.5); IMMATURE GRANULOCYTES 0.2 % (0-5); LYMPHOCYTES 21.1 % (15-50); MCH 31.7 pg (26.0-34.0); MCHC 30.8 g/dL (31.0-37.0); MEAN PLATELET VOLUME 10.8 fL (7.4-10.4); MONOCYTES 11.2 % (2-11); NEUTROPHILS 63.9 % (40-80); PLATELET COUNT 194 10x3/uL (130-400); RBC 3.03 10x6/uL (4.20-6.10)
[2019-10-17 07:17] LABS: WBC 9.8 10x3/uL (4.8-10.8)
[2019-10-17 07:55] LABS: CALCIUM 8.5 mg/dL (8.5-10.1); CARBON DIOXIDE 26.7 mmol/L (21.0-32.0); CREATININE - SERUM 1.1 mg/dL (0.6-1.3); POTASSIUM - SERUM 3.7 mmol/L (3.5-5.1)
--- NOTE | 2019-10-17 10:15 | NUR ---
physical therapy in room with pt. ATTEMPTING TO GET PT UP AND WALKING. WILL CONTINUE TO MONITOR
--- NOTE | 2019-10-17 12:47 | NUR ---
SITTING ON SIDE OF BED EATING LUNCH FEEDING SELF. TALKATIVE.
[2019-10-17 13:00] VITALS: BP 171/101
--- NOTE | 2019-10-17 13:43 | NUR ---
ATE 100 % OF LUNCH. UP IN CHAIR AT BEDSIDE. REORIENTATED TO PLACE AND SITUATION. FAIRLY COOPERATIVE. COUGHING CLEAR SPUTUM AROUND TRACH. STATES ONLY HIS FEET ARE HURTING.
--- NOTE | 2019-10-17 14:05 | NUR ---
Nutrition Follow-up: Patient shouting out that I was "staring at him like he was a werewolf" when I passed by his room. Patient interview deferred at this time. Diet: Regular PO intake: unable to assess as PO intake has not been recorded recently Last BM: 10/16/19. WT: 173# (10/17/19); Admit WT: 170# (09/23/19) Meds noted: lasix. Labs reviewd. Recommend continue current diet. Recommend offer oral nutrition supplements if PO intake <50% average. RD following.
[2019-10-17 15:59] VITALS: BP 159/93
--- NOTE | 2019-10-17 16:02 | NUR ---
ASSIST PATIENT WITH COMPLETE HIBCLENS BATH. HAIR WASHED. ORAL CARE DONE. CLEAN CLOTHES APPLIED PER PATIENT. STILL CONFUSED ASKED REPEATED QUESTIONS. FORGETS WHAT HE WANTS. COOPERATIVE. CONTINUES TO HAVE MODERATE AMOUNT OF CLEAR SPUTUM FORM AROUND TRACH. TOLERATED WELL. NO DISTRESS. PSORIASIS RASHES NOTED ON LEGS, BUTTOCK AND BACK. PATIENT REQUESTING VASOLINE TO APPLY TO AREAS. TAC POWER APPLIED BY PATIENT TO ALYSSA AREA
--- NOTE | 2019-10-17 16:47 | NUR ---
OT NOTE: PT COMPLETED SIT TO STAND WITH CGA. PT COMPLETED BUE AROM EXS WITH DECREASED AROM NOTED IN RUE. PT COMLETED MELVA/DOFF SOCK WITH SPV. [phone] THANK YOU,LORENA BENZ
--- NOTE | 2019-10-17 17:53 | NUR ---
ATE 100% DINNER TRAY. PARTNER HERE UPDATE GIVEN
--- NOTE | 2019-10-17 18:42 | NUR ---
UP IN CHAIR AT BEDSIDE. READING NEWSPAPER WORKING PUZZLE NO DISTRESS STILL VERY CONFUSED
[2019-10-17 19:00] VITALS: BP 154/85
--- NOTE | 2019-10-17 20:35 | NUR ---
patient confused. needs to be reoriented. .ambulates. see assessment. see adls
--- NOTE | 2019-10-17 22:13 | NUR ---
spoke with dr woodall regarding gabapentin allergy. stated to go ahead and give it. stated it was most likely not a true allerty
[2019-10-17 23:00] VITALS: BP 144/87
[2019-10-18 03:00] VITALS: BP 144/87
--- NOTE | 2019-10-18 03:33 | NUR ---
patient sleeping. fell asleep at 11 pm and has not waken up. vital signs are stable. will continue to monitor.
--- NOTE | 2019-10-18 03:35 | NUR ---
2100- dr woodall at bedside. spoke with patient and partner about possible discharge thursday. and nwe updated medications
--- NOTE | 2019-10-18 06:19 | NUR ---
patient still resting. has slept comfortably all night
[2019-10-18 07:10] VITALS: BP 144/88
--- NOTE | 2019-10-18 07:10 | NUR ---
PT SITTING IN BEDSIDE CHAIR. PT IS CONFUSED TO PLACE/TIME/SITUATION. PT REORIENTED TO PLACE/TIME/SITUATION. NO ACUTE S/S OF DISTRESS NOTED. PT DENIES FURTHER NEEDS. SHIFT ASSESSMENT COMPLETED AT THIS TIME. WILL CONT TO MONITOR.
--- NOTE | 2019-10-18 10:20 | NUR ---
PT SITTING IN BEDSIDE CHAIR. NO APPARENT/ACUTE S/S OF DISTRESS NOTED. PT IS CONFUSED TO PLACE/SITUATION/TIME. REORIENTATION GIVEN. PT IS COMPLIANT AND PLEASANT WITH STAFF AT THIS TIME. PT DENIES PRESENCE OF PAIN/N/V. WILL CONT TO MONITOR.
--- NOTE | 2019-10-18 10:43 | NUR ---
PT OUT OF BED WITH PT. COMPLETE BED LINEN CHANGE DONE. PT REFUSES BATHING ASSIST AT THIS TIME.
[2019-10-18 11:28] VITALS: BP 121/79
--- NOTE | 2019-10-18 12:09 | NUR ---
PT IS SITTING IN BEDSIDE CHAIR. NO ACUTE S/S OF DISTRESS NOTED. PT IS CONFUSED TO PLACE/TIME/SITUATION. PT IS REORIENTED. FALL PRECAUTIONS IN PLACE. PT ENCOURAGED TO TCDB. PT VERBALIZES UNDERSTANDING. LUNCH TRAY WITHIN REACH. PT DENIES FURTHER NEEDS.
--- NOTE | 2019-10-18 13:54 | NUR ---
PT IS RESTING IN BEDSIDE CHAIR WITH EYES CLOSED. RESPIRATIONS ARE EVEN AND UNLABORED. NO APPARENT S/S OF DISTRESS. BEDSIDE TABLE AND CALL LIGHT WITHIN REACH. FALL PRECAUTIONS IN PLACE. WILL CONT TO MONITOR.
--- NOTE | 2019-10-18 14:22 | NUR ---
PT ATTEMPTS TO GET OUT OF BEDSIDE CHAIR. PT ASSISTED BACK TO SITTING POSITION. PT STATES "I HAVE A DENTIST APPOINTMENT THAT I NEED TO GET TO BY 4 O'CLOCK, I SHOULD REALLY GET GOING". PT REORIENTED TO PLACE/TIME/SITUATION. PT IS COMPLIANT WITH STAFF AND RETURNS TO A SITTING POSITION IN CHAIR. ALL FALL PRECAUTIONS ARE IN PLACE. BEDSIDE TABLE AND CALL LIGHT ARE WITHIN REACH. PT DENIES FURTHER NEEDS. WILL CONT TO MONITOR.
[2019-10-18 15:03] VITALS: BP 110/69
--- NOTE | 2019-10-18 15:17 | NUR ---
PT IS SITTING IN BEDSIDE CHAIR. PT IS CONFUSED TO PLACE/TIME/SITUATION. PT REORIENTED TO PLACE/TIME/SITUATION. PT IS COMPLIANT WITH STAFF AT THIS TIME. PT DENIES PRESENCE OF PAIN/N/V AT THIS TIME. FALL PRECAUTIONS IN PLACE. BEDSIDE TABLE AND CALL LIGHT ARE WITHIN REACH. PT DENIES FURTHER NEEDS. WILL CONT TO MONITOR.
--- NOTE | 2019-10-18 16:13 | NUR ---
PT ATTEMPTING TO GET OUT OF CHAIR. PT STATES "I JUST NEED TO KNOW IF YOU CAN BRING SOME ASPIRIN IN HERE. I DONT WANT TO TAKE IT, BUT I THINK IT NEEDS TO BE IN HERE". PT REORIENTED TO SITUATION/TIME AND IS COOPERATIVE WITH FALL PRECAUTIONS AND SITTING BACK DOWN. FALL PRECAUTIONS IN PLACE. BEDSIDE TABLE AND CALL LIGHT ARE WITHIN REACH. PT DENIES FURTHER NEEDS. WILL CONT TO MONITOR.
--- NOTE | 2019-10-18 16:50 | NUR ---
OT NOTE: (AM) PT COMPLETED SIT TO STAND WITH CGA. PT COMPLETED WT SHIFT WITH CGA. PT COMPLETED ADL MOB WITH CGA. PT COMPLETED UE AROM EXS. (PM) PT COMPLETED SITTING BALANCE WITH SPV. PT COMPLETED BUE AROM TOLERATED. PT HAD C/O PAIN IN R SHOULDER. [phone] THANK YOU,LORENA BENZ
--- NOTE | 2019-10-18 18:07 | MORECARE ---
CASE MANAGEMENT DISCHARGE SUMMARY PATIENT: LUIS JOHNSON UNIT: [id number] ADM DATE: 09/23/19 AGE: 53 : 61 SEX: M ROOM/BED: D.2313 AUTHOR: DAVID,DOC PHYSICIAN: REFERRING PHYSICIAN: TONYA RM MD DATE OF SERVICE: 10/18/19 Discharge Plan Patient Name: LUIS JOHNSON Facility: [facility]:[place] : 1965 Planned Disposition: Anticipated Discharge Date: Discharge Date: Expected LOS: Initial Reviewer: [email or web address] Initial Review Date: 09/23/2019 Generated: 10/18/19 7:06 pm Comments DCP- Discharge Planning Updated by [id number]: Yenny Pulido on 10/18/19 5:[address]. Rm, POA and patient agree to discharge on Thursday home. CM will continue to follow and assist as needed with discharge planning / needs. DCP- Discharge Planning Updated by [id number]: Ramonita Ro on 10/12/19 4:[address] Patient Name: LUIS JOHNSON Admission Status: ER Accout number: [id number] Admission Date: 09-23-2019 : 1965 Admission Diagnosis:SEPSIS, UNSPECIFIED ORGANISM Attending: SAMNATHA Current LOS: 19 Anticipated DC Date: Planned Disposition: Primary Insurance: MEDICARE A & B Discharge Planning Comments: I SPOKE WITH DR. RM ABOUT DISCHARGE PLANNING/NEEDS FOR THIS PATIENT. WE DISCUSSED A DUAL DIAGNOSIS FACILITY WOULD BENEFIT THIS PATIENT. I CALLED THE POA MR. DE LA CRUZ AND HE WAS NOT IN AGREEMENT WITH THIS PLAN. HE DOES NOT FEEL THE PATIENT IS READY FOR DC FROM THIS HOSPITAL TO ANOTHER LEVEL OF CARE. POA WAS IN AGREEMENT FOR THE INPATIENT REHAB HERE BUT HE IS TOO CONFUSED AND NOT APPROPRIATE FOR THIS IP REHAB. MAY NEED TO HAVE A TEAM MEETING INCLUDING PHYSICIAN, RN AND VIDEO AND SOUND RECORDER WITH POA AND PATIENT TO DISCUSS NEXT LEVEL OF CARE PLAN. Bradder: Ramonita Ro DCP- Discharge Planning Updated by [email or web address]: Yenny Pulido on 09/30/19 3:[address] CM discussed patient at IDT meeting this am. CM spoke with nursing and Jose JUNIOR SOFTWARE ENGINEER of needing a plan for discharge. Nursing will ask Kirit when he visits today if the patient has POA or a legal decision maker or family member d/t the fact that if patient has to have placement h will have to have someone sign paperwork. DCP- Discharge Planning Updated by [id number]: Yenny Pulido on 09/30/19 3:[address] Late Entry 09/29/19 Patient Name: LUIS JOHNSON Admission Status: ER Accout number: [id number] Admission Date: 09-23-2019 : 1965 Admission Diagnosis:SEPSIS, UNSPECIFIED ORGANISM Attending: SAMANTHA Current LOS: 7 Anticipated DC Date: Planned Disposition: Primary Insurance: MEDICARE A & B Discharge Planning Comments: CM called and spoke with patient's SO Kirit Auguste to complete initial dc planning assessment. CM educated patient on the CM role and verbal consent given by patient to complete assessment. Patient lives at home with family. Patient is independent prior to admission. CM discussed availability of home health, rehab services, and medical equipment. Kirit stated that patient might need a walker and home health for PT & OT upon discharge. Kirit made it very clear that he did not feel that the patient is near ready for discharge. Kirit would not agree to any plan at this time he stated that he might consider Inpatient Rehab. Patient will have family to transport home. Patient denied known discharge needs at this time. CM will continue to follow and will assist as needed with dc plans/needs. Bradder: Yenny Pulido DCP- Discharge Planning Updated by [email or web address]: Yenny Pulido on 09/28/19 7:[address] CM wasn't able to speak to patient's significant other when he was here to visit today. CM attempted to call Kirit Galloway [phone] and didn't get an answer earlier today will try back later. CM will continue to follow and assist as needed with discharge planning / needs. DCP- Discharge Planning Updated by [email or web address]: Yenny Pulido on 09/28/19 10:[address] Interdisciplinary Team Meeting Note: Patient was admitted on 09-23-2019 with a diagnosis of SEPSIS, UNSPECIFIED ORGANISM. Interdisciplinary Team Meetings were held . In attendance were: Bradder Dietary Nursing Pharmacist Physical Therapy Post Acute Occupational Therapy Respiratory Therapy Speech Therapy CDI IDT recommendation for Discharge Plan: WILL DISCUSS WITH PROVIDER PLAN FOR DISCHARGING PATIENT BACK HOME AND WHAT IS THE DELAY IN DISCHARGE. Anticipated Discharge date: UNKNOWN DCPIA - Discharge Planning Initial Assessment Updated by [email or web address]: Yenny Pulido on 09/30/19 4:06 pm * Is the patient Alert and Oriented? No * How many steps to enter\exit or inside your home? 8-10 * PCP JAG * Pharmacy [facility] * Preadmission Environment Home with Family * ADLs Independent * Equipment None * List name and contact numbers for known caregivers / representatives who currently or will assist patient after discharge: KIRIT AUGUSTE KAITLIN/ LIFE PARTNER- [phone] * Verbal permission to speak to the caregivers and representatives has been obtained from the patient. N/A * Community resources currently utilized None * Additional services required to return to the preadmission environment? No * Can the patient safely return to the preadmission environment? Yes * Has this patient been hospitalized within the prior 30 days at any hospital? No Last DP export: 10/12/19 4:45 p Patient Name: LUIS JOHNSON Page 51067 at 1807 All edits/amendments must be made on the electronic document DICTATION DATE: 10/18/191805 PATIENT RESOURCE SPECIALIST: JAXSON 10/18/191805 RPT#: [id number] DC DATE: STATUS: ADM IN [facility] [address] [place] [address] END OF REPORT
--- NOTE | 2019-10-18 19:13 | NUR ---
PATIENT REPORT RECIEVED. PATIENT IS A TRANSFER. DR RM AT BEDSIDE. STATED SHE SPOKE WITH SIGNIFICANT OTHER AND HE STATED HE WOULD NOT BE ABLE TO TAKE HIM HOME UNTIL THURSDAY. PLAN FOR DISCHARGE ON THURSDAY PER DR RM. WILL CONTINUE TO MONITOR
--- NOTE | 2019-10-19 02:09 | NUR ---
PATIENT AWAKE. GETTING OUT OF BED. WANTING COFFEE AND TO LOOK FOR HIS DOG.
[2019-10-19 03:00] VITALS: BP 123/85
[2019-10-19 04:31] LABS: BASOPHILS 0.6 % (0-2); EOSINOPHILS 2.8 % (0-7); HEMATOCRIT 29.1 % (42.0-54.0); HEMOGLOBIN 8.9 g/dL (13.5-17.5); IMMATURE GRANULOCYTES 0.1 % (0-5); LYMPHOCYTES 22.7 % (15-50); MCH 31.3 pg (26.0-34.0); MCHC 30.6 g/dL (31.0-37.0); MCV 102.5 fL (80.0-100.0); MEAN PLATELET VOLUME 10.4 fL (7.4-10.4); MONOCYTES 12.8 % (2-11); PLATELET COUNT 158 10x3/uL (130-400); RBC 2.84 10x6/uL (4.20-6.10); RDW 15.7 % (11.5-14.5); WBC 8.5 10x3/uL (4.8-10.8)
[2019-10-19 04:41] LABS: CALCIUM 7.9 mg/dL (8.5-10.1); CARBON DIOXIDE 25.4 mmol/L (21.0-32.0); CREATININE - SERUM 1.1 mg/dL (0.6-1.3); POTASSIUM - SERUM 3.4 mmol/L (3.5-5.1)
--- NOTE | 2019-10-19 04:59 | NUR ---
patient remains awake. has not fallen asleep since midnight.
[2019-10-19 07:00] VITALS: BP 119/72
--- NOTE | 2019-10-19 07:30 | NUR ---
REPORT RECIEVED, SHIFT ASSESSMENT COMPLETE, PT IS CONFUSED, SITTING UP IN CHAIR, ON RA WITH 97% FIO2, ALL PPP, VSS, CALL LIGHT IN REACH
--- NOTE | 2019-10-19 09:00 | NUR ---
PT EATING BREAKFAST AT THIS TIME, WILL CON'T TO MONITOR
[2019-10-19 11:00] VITALS: BP 122/75
--- NOTE | 2019-10-19 11:15 | NUR ---
RESTING AT THIS TIME, WILL CON'T TO MONITOR
--- NOTE | 2019-10-19 13:00 | NUR ---
NO NEEDS NOTED AT THIS TIME,
--- NOTE | 2019-10-19 14:32 | NUR ---
Nutrition Follow-up: Diet: Regular PO intake: ~82% average x last 5 meals recorded Last BM: 10/19/19. WT: 164# (10/18/19); Admit wt: 170# (09/23/19) Meds noted: lasix. Labs noted: K 3.4(L) Recommend continue current diet. RD following.
--- NOTE | 2019-10-19 15:20 | NUR ---
PT AWAKE AT THIS TIME, ATTEMPTING TO WALK OUT OF ROOM AND GET OUT OF CHAIR, REORIENTED TO PLACE AND TIME,
--- NOTE | 2019-10-19 15:30 | NUR ---
PT ANXIOUS AT THIS TIME, PRN ANXIETY MED GIVEN
--- NOTE | 2019-10-19 15:40 | NUR ---
OT NOTE: AMB WITH WALKER AND MIN ASSIST; REMAINS UNSTEADY WITHOUT ASSIST; BALANCE IS FAIR+; ENDURANCE HAS IMPROVED HE IS ABLE TO AMB APPROX 150 FT; CONT TO HAVE COORDINATION DEFECITS WITH SIMPLE ADLS. ALERT AND ORIENTED X SELF.. HE KNEW THAT HE WAS IN HOSPITAL BUT DID NOT KNOW THE NAME OF HOSPITAL. SLIGHLTY MORE CONFUSED THAN YESTERDAY. PAGE JAY, OTR/L [phone]
[2019-10-19 19:00] VITALS: BP 145/84
[2019-10-19 23:00] VITALS: BP 135/89
--- NOTE | 2019-10-19 23:40 | NUR ---
patient sleeping. will continue to monitor
[2019-10-20 04:24] LABS: BASOPHILS 0.4 % (0-2); HEMATOCRIT 26.9 % (42.0-54.0); HEMOGLOBIN 8.3 g/dL (13.5-17.5); IMMATURE GRANULOCYTES 0.3 % (0-5); LYMPHOCYTES 24.8 % (15-50); MCH 31.7 pg (26.0-34.0); MCHC 30.9 g/dL (31.0-37.0); MCV 102.7 fL (80.0-100.0); MEAN PLATELET VOLUME 10.7 fL (7.4-10.4); NEUTROPHILS 61.5 % (40-80); PLATELET COUNT 170 10x3/uL (130-400); RBC 2.62 10x6/uL (4.20-6.10); RDW 15.9 % (11.5-14.5); WBC 7.9 10x3/uL (4.8-10.8)
[2019-10-20 04:48] LABS: ANION GAP 11.3 mmol/L (8-16); CALCIUM 7.9 mg/dL (8.5-10.1); CARBON DIOXIDE 26.3 mmol/L (21.0-32.0); CREATININE - SERUM 1.2 mg/dL (0.6-1.3); POTASSIUM - SERUM 3.6 mmol/L (3.5-5.1)
[2019-10-20 07:00] VITALS: BP 119/93
--- NOTE | 2019-10-20 07:00 | NUR ---
REPORT RECIEVED, SHIFT ASSESSMENT COMPLETE, PT IS CONFUSED, ATTEMPTED TO REORIENT, ALL VSS, CALL LIGHT IN REACH
--- NOTE | 2019-10-20 12:30 | NUR ---
FAMILY AT BEDSIDE UPDATE GIVEN
--- NOTE | 2019-10-20 15:30 | NUR ---
PT AWAKE AT THIS TIME, SITTING UP IN CHAIR
--- NOTE | 2019-10-20 17:20 | MORECARE ---
CASE MANAGEMENT DISCHARGE SUMMARY PATIENT: LUIS JOHNSON UNIT: [id number] ADM DATE: 09/23/19 AGE: 53 : 61 SEX: M ROOM/BED: D.2313 AUTHOR: DAVID,DOC PHYSICIAN: REFERRING PHYSICIAN: TONYA RM MD DATE OF SERVICE: 10/20/19 Discharge Plan Patient Name: LUIS JOHNSON Facility: [facility]:[place] : 1965 Planned Disposition: Anticipated Discharge Date: Discharge Date: Expected LOS: Initial Reviewer: [email or web address] Initial Review Date: 09/23/2019 Generated: 10/20/19 6:19 pm Comments DCP- Discharge Planning Updated by [id number]: Dione Cespedes on 10/20/19 4:[address] KIRIT JOHNSON, CAREGIVER , VISITED THIS PM. NURSE SPOKE WITH MR JOHNSON. HE SAYS HE WANTS [facility] FOR NURSING, A BSC, WALKER & SHOWER CHAIR. HE WANTS DISCHARGE IN EARLY AM. MR JOHNSON WAS LEAVING THIS PM STATED HE COULD NOT TAKE THE PATIENT HOME IF THESE THINGS WERE NOT ARRANGED. CM CALLED MR JOHNSON. CONFIRMED HIS CHOICE OF [facility]. WHEN QUESTIONED STATED HE HAD NO PREFERENCE FOR DME PROVIDER. HE STATES HE WANTS A WALKER W/ TWO WHEELS, CANE, BSC AND SHOWER CHAIR. HE DOES NOT WANT HOME HEALTH UNTIL THURSDAY OR THURSDAY. HE STATES THE PATIENT HAS A MD APPOINTMENT THURSDAY. HE WILL PROVIDE TRANSPORTATION TO HOME. HE WANTS A CXR PRIOR TO DISCHARGE. HE WANTS TO KNOW THE PATIENT CAN WALK. CM REVIEWED THE PHYSICAL THERAPY NOTES FOR 10/18 & 10/19. HE STILL QUESTIONS IF HE IS ABLE TO WALK. WAYLON CALLED [facility]. SPOKE W/ SHARLENE. SHE STATES [facility] IS CLOSED AND SHE CANNOT REVIEW THE PATIENT UNTIL THURSDAY. SHE STATED TO FAX THE REFERRAL. CM ADVISED THE CAREGIVER DID NOT WANT ANYONE TO VISIT UNTIL THURSDAY OR THURSDAY THE PATIENT HAS AN MD APPT THURSDAY. FAXED REFERRAL. WILL NEED TO F/U W/ DME ORDER IN THE AM. DCP- Discharge Planning Updated by [id number]: Yenny Pulido on 10/18/19 5:[address]. Rm, POA and patient agree to discharge on Thursday home. CM will continue to follow and assist as needed with discharge planning / needs. DCP- Discharge Planning Updated by [email or web address]: Ramonita Ro on 10/12/19 4:[address] Patient Name: LUIS JOHNSON Admission Status: ER Accout number: [id number] Admission Date: 09-23-2019 : 1965 Admission Diagnosis:SEPSIS, UNSPECIFIED ORGANISM Attending: SAMANTHA Current LOS: 19 Anticipated DC Date: Planned Disposition: Primary Insurance: MEDICARE A & B Discharge Planning Comments: I SPOKE WITH DR. RM ABOUT DISCHARGE PLANNING/NEEDS FOR THIS PATIENT. WE DISCUSSED A DUAL DIAGNOSIS FACILITY WOULD BENEFIT THIS PATIENT. I CALLED THE POA MR. DE LA CRUZ AND HE WAS NOT IN AGREEMENT WITH THIS PLAN. HE DOES NOT FEEL THE PATIENT IS READY FOR DC FROM THIS HOSPITAL TO ANOTHER LEVEL OF CARE. POA WAS IN AGREEMENT FOR THE INPATIENT REHAB HERE BUT HE IS TOO CONFUSED AND NOT APPROPRIATE FOR THIS IP REHAB. MAY NEED TO HAVE A TEAM MEETING INCLUDING PHYSICIAN, RN AND RACK PULLER WITH POA AND PATIENT TO DISCUSS NEXT LEVEL OF CARE PLAN. Sanitor: Ramonita Ro DCP- Discharge Planning Updated by [id number]: Yenny Pulido on 09/30/19 3:[address] CM discussed patient at IDT meeting this am. CM spoke with nursing and Jose RAMON of needing a plan for discharge. Nursing will ask Kirit when he visits today if the patient has POA or a legal decision maker or family member d/t the fact that if patient has to have placement h will have to have someone sign paperwork. DCP- Discharge Planning Updated by [id number]: Yenny Pulido on 09/30/19 3:[address] Late Entry 09/29/19 Patient Name: LUIS JOHNSON Admission Status: ER Accout number: [id number] Admission Date: 09-23-2019 : 1965 Admission Diagnosis:SEPSIS, UNSPECIFIED ORGANISM Attending: SAMANTHA Current LOS: 7 Anticipated DC Date: Planned Disposition: Primary Insurance: MEDICARE A & B Discharge Planning Comments: CM called and spoke with patient's SO Kirit Auguste to complete initial dc planning assessment. CM educated patient on the CM role and verbal consent given by patient to complete assessment. Patient lives at home with family. Patient is independent prior to admission. CM discussed availability of home health, rehab services, and medical equipment. Kirit stated that patient might need a walker and home health for PT & OT upon discharge. Kirit made it very clear that he did not feel that the patient is near ready for discharge. Kirit would not agree to any plan at this time he stated that he might consider Inpatient Rehab. Patient will have family to transport home. Patient denied known discharge needs at this time. CM will continue to follow and will assist as needed with dc plans/needs. Sanitor: Yenny Pulido DCP- Discharge Planning Updated by [email or web address]: Yenny Pulido on 09/28/19 7:[address] CM wasn't able to speak to patient's significant other when he was here to visit today. CM attempted to call Kirit Galloway [phone] and didn't get an answer earlier today will try back later. CM will continue to follow and assist as needed with discharge planning / needs. DCP- Discharge Planning Updated by [id number]: Yenny Pulido on 09/28/19 10:[address] Interdisciplinary Team Meeting Note: Patient was admitted on 09-23-2019 with a diagnosis of SEPSIS, UNSPECIFIED ORGANISM. Interdisciplinary Team Meetings were held . In attendance were: Sanitor Dietary Nursing Pharmacist Physical Therapy Post Acute Occupational Therapy Respiratory Therapy Speech Therapy CDI IDT recommendation for Discharge Plan: WILL DISCUSS WITH PROVIDER PLAN FOR DISCHARGING PATIENT BACK HOME AND WHAT IS THE DELAY IN DISCHARGE. Anticipated Discharge date: UNKNOWN DCPIA - Discharge Planning Initial Assessment Updated by [id number]: Yenny Pulido on 09/30/19 4:06 pm * Is the patient Alert and Oriented? No * How many steps to enter\exit or inside your home? 8-10 * PCP HUR * Pharmacy [facility] * Preadmission Environment Home with Family * ADLs Independent * Equipment None * List name and contact numbers for known caregivers / representatives who currently or will assist patient after discharge: KIRIT AUGUSTE KAITLIN/ LIFE PARTNER- [phone] * Verbal permission to speak to the caregivers and representatives has been obtained from the patient. N/A * Community resources currently utilized None * Additional services required to return to the preadmission environment? No * Can the patient safely return to the preadmission environment? Yes * Has this patient been hospitalized within the prior 30 days at any hospital? No Last DP export: 10/18/19 5:07 p Patient Name: LUIS JOHNSON Page 58092 at 1720 All edits/amendments must be made on the electronic document DICTATION DATE: 10/20/191718 RADIO COMMENTATOR: JAXSON 10/20/191718 RPT#: [id number] DC DATE: STATUS: ADM IN [facility] [address] [place] [address] END OF REPORT
--- NOTE | 2019-10-20 17:30 | NUR ---
PT RESTING AT THIS TIME, WILL CON'T TO MONITOR
--- NOTE | 2019-10-20 17:51 | MORECARE ---
CASE MANAGEMENT DISCHARGE SUMMARY PATIENT: LUIS JOHNSON UNIT: [id number] ADM DATE: 09/23/19 AGE: 53 : 61 SEX: M ROOM/BED: D.2313 AUTHOR: DAVID,DOC PHYSICIAN: REFERRING PHYSICIAN: TONYA RM MD DATE OF SERVICE: 10/20/19 Discharge Plan Patient Name: LUIS JOHNSON Facility: [facility]:[place] : 1965 Planned Disposition: Anticipated Discharge Date: Discharge Date: Expected LOS: Initial Reviewer: [email or web address] Initial Review Date: 09/23/2019 Generated: 10/20/19 6:50 pm Comments DCP- Discharge Planning Updated by [id number]: Dione Cespedes on 10/20/19 4:[address] KIRIT JIMENEZ, CAREGIVER , VISITED THIS PM. NURSE SPOKE WITH MR JIMENEZ. HE SAYS HE WANTS [facility] FOR NURSING, A BSC, WALKER & SHOWER CHAIR. HE WANTS DISCHARGE IN EARLY AM. MR JIMENEZ WAS LEAVING THIS PM STATED HE COULD NOT TAKE THE PATIENT HOME IF THESE THINGS WERE NOT ARRANGED. CM CALLED MR JIMENEZ. CONFIRMED HIS CHOICE OF [facility]. WHEN QUESTIONED STATED HE HAD NO PREFERENCE FOR DME PROVIDER. HE STATES HE WANTS A WALKER W/ TWO WHEELS, CANE, BSC AND SHOWER CHAIR. HE DOES NOT WANT HOME HEALTH UNTIL THURSDAY OR THURSDAY. HE STATES THE PATIENT HAS A MD APPOINTMENT THURSDAY. HE WILL PROVIDE TRANSPORTATION TO HOME. HE WANTS A CXR PRIOR TO DISCHARGE. HE WANTS TO KNOW THE PATIENT CAN WALK. CM REVIEWED THE PHYSICAL THERAPY NOTES FOR 10/18 & 10/19. HE STILL QUESTIONS IF HE IS ABLE TO WALK. WAYLON CALLED [facility]. SPOKE W/ SHARLENE. SHE STATES [facility] IS CLOSED AND SHE CANNOT REVIEW THE PATIENT UNTIL THURSDAY. SHE STATED TO FAX THE REFERRAL. CM ADVISED THE CAREGIVER DID NOT WANT ANYONE TO VISIT UNTIL THURSDAY OR THURSDAY THE PATIENT HAS AN MD APPT THURSDAY. FAXED REFERRAL. WILL NEED TO F/U W/ DME ORDER IN THE AM. DCP- Discharge Planning Updated by [id number]: Yenny Pulido on 10/18/19 5:[address]. Rm, POA and patient agree to discharge on Thursday home. CM will continue to follow and assist as needed with discharge planning / needs. DCP- Discharge Planning Updated by [id number]: Ramonita Ro on 10/12/19 4:[address] Patient Name: LUIS JOHNSON Admission Status: ER Accout number: [id number] Admission Date: 09-23-2019 : 1965 Admission Diagnosis:SEPSIS, UNSPECIFIED ORGANISM Attending: SAMANTHA Current LOS: 19 Anticipated DC Date: Planned Disposition: Primary Insurance: MEDICARE A & B Discharge Planning Comments: I SPOKE WITH DR. RM ABOUT DISCHARGE PLANNING/NEEDS FOR THIS PATIENT. WE DISCUSSED A DUAL DIAGNOSIS FACILITY WOULD BENEFIT THIS PATIENT. I CALLED THE POA MR. DE LA CRUZ AND HE WAS NOT IN AGREEMENT WITH THIS PLAN. HE DOES NOT FEEL THE PATIENT IS READY FOR DC FROM THIS HOSPITAL TO ANOTHER LEVEL OF CARE. POA WAS IN AGREEMENT FOR THE INPATIENT REHAB HERE BUT HE IS TOO CONFUSED AND NOT APPROPRIATE FOR THIS IP REHAB. MAY NEED TO HAVE A TEAM MEETING INCLUDING PHYSICIAN, RN AND EVALUATION ANALYST WITH POA AND PATIENT TO DISCUSS NEXT LEVEL OF CARE PLAN. Fruit Harvest Worker: Ramonita Ro DCP- Discharge Planning Updated by [email or web address]: Yenny Pulido on 09/30/19 3:[address] CM discussed patient at IDT meeting this am. CM spoke with nursing and Jose RAMON of needing a plan for discharge. Nursing will ask Kirit when he visits today if the patient has POA or a legal decision maker or family member d/t the fact that if patient has to have placement h will have to have someone sign paperwork. DCP- Discharge Planning Updated by [email or web address]: Yenny Pulido on 09/30/19 3:[address] Late Entry 09/29/19 Patient Name: LUIS JOHNSON Admission Status: ER Accout number: [id number] Admission Date: 09-23-2019 : 1965 Admission Diagnosis:SEPSIS, UNSPECIFIED ORGANISM Attending: SAMANTHA Current LOS: 7 Anticipated DC Date: Planned Disposition: Primary Insurance: MEDICARE A & B Discharge Planning Comments: CM called and spoke with patient's SO Kirit Auguste to complete initial dc planning assessment. CM educated patient on the CM role and verbal consent given by patient to complete assessment. Patient lives at home with family. Patient is independent prior to admission. CM discussed availability of home health, rehab services, and medical equipment. Kirit stated that patient might need a walker and home health for PT & OT upon discharge. Kirit made it very clear that he did not feel that the patient is near ready for discharge. Kirit would not agree to any plan at this time he stated that he might consider Inpatient Rehab. Patient will have family to transport home. Patient denied known discharge needs at this time. CM will continue to follow and will assist as needed with dc plans/needs. Fruit Harvest Worker: Yenny Pulido DCP- Discharge Planning Updated by [email or web address]: Yenny Pulido on 09/28/19 7:[address] CM wasn't able to speak to patient's significant other when he was here to visit today. CM attempted to call Kirit Jimenez [phone] and didn't get an answer earlier today will try back later. CM will continue to follow and assist as needed with discharge planning / needs. DCP- Discharge Planning Updated by [email or web address]: Yenny Pulido on 09/28/19 10:[address] Interdisciplinary Team Meeting Note: Patient was admitted on 09-23-2019 with a diagnosis of SEPSIS, UNSPECIFIED ORGANISM. Interdisciplinary Team Meetings were held . In attendance were: Fruit Harvest Worker Dietary Nursing Pharmacist Physical Therapy Post Acute Occupational Therapy Respiratory Therapy Speech Therapy CDI IDT recommendation for Discharge Plan: WILL DISCUSS WITH PROVIDER PLAN FOR DISCHARGING PATIENT BACK HOME AND WHAT IS THE DELAY IN DISCHARGE. Anticipated Discharge date: UNKNOWN DCPIA - Discharge Planning Initial Assessment Updated by [email or web address]: Yenny Pulido on 09/30/19 4:06 pm * Is the patient Alert and Oriented? No * How many steps to enter\exit or inside your home? 8-10 * PCP HUR * Pharmacy [facility] * Preadmission Environment Home with Family * ADLs Independent * Equipment None * List name and contact numbers for known caregivers / representatives who currently or will assist patient after discharge: KIRIT AUGUSTE KAITLIN/ LIFE PARTNER- [phone] * Verbal permission to speak to the caregivers and representatives has been obtained from the patient. N/A * Community resources currently utilized None * Additional services required to return to the preadmission environment? No * Can the patient safely return to the preadmission environment? Yes * Has this patient been hospitalized within the prior 30 days at any hospital? No Last DP export: 10/20/19 4:20 pm Patient Name: LUIS JOHNSON Page 44488 at 1751 All edits/amendments must be made on the electronic document DICTATION DATE: 10/20/191749 HEALTH ACTUARY: JAXSON 10/20/191749 RPT#: [id number] DC DATE: STATUS: ADM IN [facility] [address] [place] [address] END OF REPORT
[2019-10-20] MEDS ORDERED: XIFAXAN550 MG PO (18:54)
[2019-10-20] MEDS ORDERED: IPRAT-ALBUT 0.5-3 ML UPD (18:54)
[2019-10-20] MEDS ORDERED: GABAPENTIN100 MG PO (18:55)
[2019-10-20] MEDS ORDERED: LEXAPRO10 MG PO (18:55)
[2019-10-20 19:00] VITALS: BP 123/60
--- NOTE | 2019-10-20 19:00 | NUR ---
SHIFT ASSESSMENT COMPLETED. PT CARE ASSUMED. MONITORS ON AND WORKING, VSS, PT CONFUSED AND DISORIENTED BUT VERY EASILY REDIRECTED, PT IN PLEASANT MOOD AND CONVERSIVE, SEE FLOW SHEET FOR FURTHER DETAILS. WILL CONTINUE TO OBSERVE.
[2019-10-20] MEDS ORDERED: PROTONIX40 MG PO (19:07)
[2019-10-20 23:00] VITALS: BP 116/65
--- NOTE | 2019-10-20 23:00 | NUR ---
PT SITTING UP IN CHAIR IN BEDROOM, PT EASILY REDIRECTED WHEN PT TRIES TO WALK OUT OF ROOM, PT UP TO BEDSIDE COMMODE WITH MINIMAL ASSIST, PT DENIES ANY COMPLAINT OF PAIN OR DISCOMFORT AT THIS TIME, PT TAKES MEDS PO WITHOUT ANY DIFFICULTY, WILL CONTINUE TO OBSERVE.
[2019-10-21 03:00] VITALS: BP 124/71
--- NOTE | 2019-10-21 03:00 | NUR ---
PT LYING IN BED RESTING QUITELY, CALL LIGHT WITHIN REACH, VSS. WILL CONTINUE TO OBSERVE.
[2019-10-21 03:30] LABS: BASOPHILS 0.3 % (0-2); EOSINOPHILS 2.6 % (0-7); IMMATURE GRANULOCYTES 0.1 % (0-5); LYMPHOCYTES 25.7 % (15-50); MCHC 30.8 g/dL (31.0-37.0); MEAN PLATELET VOLUME 10.3 fL (7.4-10.4); MONOCYTES 9.7 % (2-11); NEUTROPHILS 61.6 % (40-80); PLATELET COUNT 150 10x3/uL (130-400); RDW 15.9 % (11.5-14.5); WBC 7.6 10x3/uL (4.8-10.8)
[2019-10-21 03:45] LABS: ANION GAP 8.8 mmol/L (8-16); CALCIUM 7.8 mg/dL (8.5-10.1); CARBON DIOXIDE 26.6 mmol/L (21.0-32.0); CREATININE - SERUM 1.3 mg/dL (0.6-1.3); POTASSIUM - SERUM 3.4 mmol/L (3.5-5.1)
--- NOTE | 2019-10-21 05:00 | NUR ---
PT WALKING AROUND ROOM, PT EASILY REDIRECTED BACK INTO CHAIR, WILL CONTINUE TO OBSERV.E
--- NOTE | 2019-10-21 07:26 | NUR ---
REPORT RECIEVED, SHIFT ASSESSMENT COMPLETE, PT IS CONFUSED SITTING UP IN CHAIR, ATTEMPTED TO REORIENT, ALL PPP, VSS, CALL LIGHT IN REACH
--- NOTE | 2019-10-21 09:03 | NUR ---
PT RESTING AT THIS TIME, WILL CON'T TO MONITOR
--- NOTE | 2019-10-21 10:20 | MORECARE ---
CASE MANAGEMENT DISCHARGE SUMMARY PATIENT: LUIS JOHNSON UNIT: [id number] ADM DATE: 09/23/19 AGE: 53 : 61 SEX: M ROOM/BED: D.2313 AUTHOR: DAVID,DOC PHYSICIAN: REFERRING PHYSICIAN: TONYA RM MD DATE OF SERVICE: 10/21/19 Discharge Plan Patient Name: LUIS JOHNSON Facility: [facility]:[place] : 1965 Planned Disposition: Anticipated Discharge Date: Discharge Date: Expected LOS: Initial Reviewer: [email or web address] Initial Review Date: 09/23/2019 Generated: 10/21/19 11:20 am Comments DCP- Discharge Planning Updated by [id number]: Dione Cespedes on 10/20/19 4:[address] KIRIT JIMENEZ, CAREGIVER , VISITED THIS PM. NURSE SPOKE WITH MR JIMENEZ. HE SAYS HE WANTS [facility] FOR NURSING, A BSC, WALKER & SHOWER CHAIR. HE WANTS DISCHARGE IN EARLY AM. MR JIMENEZ WAS LEAVING THIS PM STATED HE COULD NOT TAKE THE PATIENT HOME IF THESE THINGS WERE NOT ARRANGED. CM CALLED MR JIMENEZ. CONFIRMED HIS CHOICE OF [facility]. WHEN QUESTIONED STATED HE HAD NO PREFERENCE FOR DME PROVIDER. HE STATES HE WANTS A WALKER W/ TWO WHEELS, CANE, BSC AND SHOWER CHAIR. HE DOES NOT WANT HOME HEALTH UNTIL THURSDAY OR THURSDAY. HE STATES THE PATIENT HAS A MD APPOINTMENT THURSDAY. HE WILL PROVIDE TRANSPORTATION TO HOME. HE WANTS A CXR PRIOR TO DISCHARGE. HE WANTS TO KNOW THE PATIENT CAN WALK. CM REVIEWED THE PHYSICAL THERAPY NOTES FOR 10/18 & 10/19. HE STILL QUESTIONS IF HE IS ABLE TO WALK. WAYLON CALLED [facility]. SPOKE W/ SHARLENE. SHE STATES [facility] IS CLOSED AND SHE CANNOT REVIEW THE PATIENT UNTIL THURSDAY. SHE STATED TO FAX THE REFERRAL. CM ADVISED THE CAREGIVER DID NOT WANT ANYONE TO VISIT UNTIL THURSDAY OR THURSDAY THE PATIENT HAS AN MD APPT THURSDAY. FAXED REFERRAL. WILL NEED TO F/U W/ DME ORDER IN THE AM. DCP- Discharge Planning Updated by [email or web address]: Yenny Pulido on 10/18/19 5:[address]. Rm, POA and patient agree to discharge on Thursday home. CM will continue to follow and assist as needed with discharge planning / needs. DCP- Discharge Planning Updated by [id number]: Ramonita Ro on 10/12/19 4:[address] Patient Name: LUIS JOHNSON Admission Status: ER Accout number: [id number] Admission Date: 09-23-2019 : 1965 Admission Diagnosis:SEPSIS, UNSPECIFIED ORGANISM Attending: SAMANTHA Current LOS: 19 Anticipated DC Date: Planned Disposition: Primary Insurance: MEDICARE A & B Discharge Planning Comments: I SPOKE WITH DR. RM ABOUT DISCHARGE PLANNING/NEEDS FOR THIS PATIENT. WE DISCUSSED A DUAL DIAGNOSIS FACILITY WOULD BENEFIT THIS PATIENT. I CALLED THE POA MR. DE LA CRUZ AND HE WAS NOT IN AGREEMENT WITH THIS PLAN. HE DOES NOT FEEL THE PATIENT IS READY FOR DC FROM THIS HOSPITAL TO ANOTHER LEVEL OF CARE. POA WAS IN AGREEMENT FOR THE INPATIENT REHAB HERE BUT HE IS TOO CONFUSED AND NOT APPROPRIATE FOR THIS IP REHAB. MAY NEED TO HAVE A TEAM MEETING INCLUDING PHYSICIAN, RN AND MENAGERIE CARETAKER WITH POA AND PATIENT TO DISCUSS NEXT LEVEL OF CARE PLAN. Help Desk Rep: Ramonita Ro DCP- Discharge Planning Updated by [id number]: Yenny Pulido on 09/30/19 3:[address] CM discussed patient at IDT meeting this am. CM spoke with nursing and Jose RAMON of needing a plan for discharge. Nursing will ask Kirit when he visits today if the patient has POA or a legal decision maker or family member d/t the fact that if patient has to have placement h will have to have someone sign paperwork. DCP- Discharge Planning Updated by [email or web address]: Yenny Pulido on 09/30/19 3:[address] Late Entry 09/29/19 Patient Name: LUIS JOHNSON Admission Status: ER Accout number: [id number] Admission Date: 09-23-2019 : 1965 Admission Diagnosis:SEPSIS, UNSPECIFIED ORGANISM Attending: SAMANTHA Current LOS: 7 Anticipated DC Date: Planned Disposition: Primary Insurance: MEDICARE A & B Discharge Planning Comments: CM called and spoke with patient's SO Kirit Auguste to complete initial dc planning assessment. CM educated patient on the CM role and verbal consent given by patient to complete assessment. Patient lives at home with family. Patient is independent prior to admission. CM discussed availability of home health, rehab services, and medical equipment. Kirit stated that patient might need a walker and home health for PT & OT upon discharge. Kirit made it very clear that he did not feel that the patient is near ready for discharge. Kirit would not agree to any plan at this time he stated that he might consider Inpatient Rehab. Patient will have family to transport home. Patient denied known discharge needs at this time. CM will continue to follow and will assist as needed with dc plans/needs. Help Desk Rep: Yenny Pulido DCP- Discharge Planning Updated by [id number]: Yenny Pulido on 09/28/19 7:[address] CM wasn't able to speak to patient's significant other when he was here to visit today. CM attempted to call Kirit Jimenez [phone] and didn't get an answer earlier today will try back later. CM will continue to follow and assist as needed with discharge planning / needs. DCP- Discharge Planning Updated by [id number]: Yenny Pulido on 09/28/19 10:[address] Interdisciplinary Team Meeting Note: Patient was admitted on 09-23-2019 with a diagnosis of SEPSIS, UNSPECIFIED ORGANISM. Interdisciplinary Team Meetings were held . In attendance were: Help Desk Rep Dietary Nursing Pharmacist Physical Therapy Post Acute Occupational Therapy Respiratory Therapy Speech Therapy CDI IDT recommendation for Discharge Plan: WILL DISCUSS WITH PROVIDER PLAN FOR DISCHARGING PATIENT BACK HOME AND WHAT IS THE DELAY IN DISCHARGE. Anticipated Discharge date: UNKNOWN DCPIA - Discharge Planning Initial Assessment Updated by [id number]: Yenny Pulido on 09/30/19 4:06 pm * Is the patient Alert and Oriented? No * How many steps to enter\exit or inside your home? 8-10 * PCP HUR * Pharmacy [facility] * Preadmission Environment Home with Family * ADLs Independent * Equipment None * List name and contact numbers for known caregivers / representatives who currently or will assist patient after discharge: KIRIT AUGUSTE KAITLIN/ LIFE [employer]NER- [phone] * Verbal permission to speak to the caregivers and representatives has been obtained from the patient. N/A * Community resources currently utilized None * Additional services required to return to the preadmission environment? No * Can the patient safely return to the preadmission environment? Yes * Has this patient been hospitalized within the prior 30 days at any hospital? No External Providers External Provider: OTHER-OTHER Next Contact Date: Service Request Date: Service Type: Resolution: Reviewer: Comments: Last DP export: 10/20/19 4:51 pm Patient Name: LUIS JOHNSON Page [id number] at 1020 All edits/amendments must be made on the electronic document DICTATION DATE: 10/21/19 1020 VICE PRESIDENT OF CONSULTING SERVICES: JAXSON 10/21/19 1020 RPT#: [id number] DC DATE: STATUS: ADM IN [facility] [address] [place] [address] END OF REPORT
--- NOTE | 2019-10-21 10:57 | MORECARE ---
CASE MANAGEMENT DISCHARGE SUMMARY PATIENT: LUIS JOHNSON UNIT: [id number] ADM DATE: 09/23/19 AGE: 53 : 61 SEX: M ROOM/BED: D.2313 AUTHOR: DAVID,DOC PHYSICIAN: REFERRING PHYSICIAN: TONYA MR MD DATE OF SERVICE: 10/21/19 Discharge Plan Patient Name: LUIS JOHNSON Facility: [facility]:[place] : 1965 Planned Disposition: Anticipated Discharge Date: Discharge Date: Expected LOS: Initial Reviewer: [email or web address] Initial Review Date: 09/23/2019 Generated: 10/21/19 11:56 am Comments DCP- Discharge Planning Updated by [email or web address]: Dione Cespedes on 10/20/19 4:[address] KIRIT JIMENEZ, CAREGIVER , VISITED THIS PM. NURSE SPOKE WITH MR JIMENEZ. HE SAYS HE WANTS [facility] FOR NURSING, A BSC, WALKER & SHOWER CHAIR. HE WANTS DISCHARGE IN EARLY AM. MR JIMENEZ WAS LEAVING THIS PM STATED HE COULD NOT TAKE THE PATIENT HOME IF THESE THINGS WERE NOT ARRANGED. CM CALLED MR JIMENEZ. CONFIRMED HIS CHOICE OF [facility]. WHEN QUESTIONED STATED HE HAD NO PREFERENCE FOR DME PROVIDER. HE STATES HE WANTS A WALKER W/ TWO WHEELS, CANE, BSC AND SHOWER CHAIR. HE DOES NOT WANT HOME HEALTH UNTIL THURSDAY OR THURSDAY. HE STATES THE PATIENT HAS A MD APPOINTMENT THURSDAY. HE WILL PROVIDE TRANSPORTATION TO HOME. HE WANTS A CXR PRIOR TO DISCHARGE. HE WANTS TO KNOW THE PATIENT CAN WALK. CM REVIEWED THE PHYSICAL THERAPY NOTES FOR 10/18 & 10/19. HE STILL QUESTIONS IF HE IS ABLE TO WALK. WAYLON CALLED [facility]. SPOKE W/ SHARLENE. SHE STATES [facility] IS CLOSED AND SHE CANNOT REVIEW THE PATIENT UNTIL THURSDAY. SHE STATED TO FAX THE REFERRAL. CM ADVISED THE CAREGIVER DID NOT WANT ANYONE TO VISIT UNTIL THURSDAY OR THURSDAY THE PATIENT HAS AN MD APPT THURSDAY. FAXED REFERRAL. WILL NEED TO F/U W/ DME ORDER IN THE AM. DCP- Discharge Planning Updated by [id number]: Yenny Pulido on 10/18/19 5:[address] Nursing Dr. Rm, POA and patient agree to discharge on Thursday home. CM will continue to follow and assist as needed with discharge planning / needs. DCP- Discharge Planning Updated by [id number]: Ramonita Ro on 10/12/19 4:[address] Patient Name: LUIS JOHNSON Admission Status: ER Accout number: [id number] Admission Date: 09-23-2019 : 1965 Admission Diagnosis:SEPSIS, UNSPECIFIED ORGANISM Attending: SAMANTHA Current LOS: 19 Anticipated DC Date: Planned Disposition: Primary Insurance: MEDICARE A & B Discharge Planning Comments: I SPOKE WITH DR. RM ABOUT DISCHARGE PLANNING/NEEDS FOR THIS PATIENT. WE DISCUSSED A DUAL DIAGNOSIS FACILITY WOULD BENEFIT THIS PATIENT. I CALLED THE POA MR. DE LA CRUZ AND HE WAS NOT IN AGREEMENT WITH THIS PLAN. HE DOES NOT FEEL THE PATIENT IS READY FOR DC FROM THIS HOSPITAL TO ANOTHER LEVEL OF CARE. POA WAS IN AGREEMENT FOR THE INPATIENT REHAB HERE BUT HE IS TOO CONFUSED AND NOT APPROPRIATE FOR THIS IP REHAB. MAY NEED TO HAVE A TEAM MEETING INCLUDING PHYSICIAN, RN AND UTILIZATION SPECIALIST WITH POA AND PATIENT TO DISCUSS NEXT LEVEL OF CARE PLAN. Software Security Consultant: Ramonita Ro DCP- Discharge Planning Updated by [id number]: Yenny Pulido on 09/30/19 3:[address] CM discussed patient at IDT meeting this am. CM spoke with nursing and Jose RAMON of needing a plan for discharge. Nursing will ask Kirit when he visits today if the patient has POA or a legal decision maker or family member d/t the fact that if patient has to have placement h will have to have someone sign paperwork. DCP- Discharge Planning Updated by [id number]: Yenny Pulido on 09/30/19 3:[address] Late Entry 09/29/19 Patient Name: LUIS JOHNSON Admission Status: ER Accout number: [id number] Admission Date: 09-23-2019 : 1965 Admission Diagnosis:SEPSIS, UNSPECIFIED ORGANISM Attending: SAMANTHA Current LOS: 7 Anticipated DC Date: Planned Disposition: Primary Insurance: MEDICARE A & B Discharge Planning Comments: CM called and spoke with patient's SO Kirit Auguste to complete initial dc planning assessment. CM educated patient on the CM role and verbal consent given by patient to complete assessment. Patient lives at home with family. Patient is independent prior to admission. CM discussed availability of home health, rehab services, and medical equipment. Kirit stated that patient might need a walker and home health for PT & OT upon discharge. Kirit made it very clear that he did not feel that the patient is near ready for discharge. Kirit would not agree to any plan at this time he stated that he might consider Inpatient Rehab. Patient will have family to transport home. Patient denied known discharge needs at this time. CM will continue to follow and will assist as needed with dc plans/needs. Software Security Consultant: Yenny Pulido DCP- Discharge Planning Updated by [email or web address]: Yenny Pulido on 09/28/19 7:[address] CM wasn't able to speak to patient's significant other when he was here to visit today. CM attempted to call Kirit Jimenez [phone] and didn't get an answer earlier today will try back later. CM will continue to follow and assist as needed with discharge planning / needs. DCP- Discharge Planning Updated by [id number]: Yenny Pulido on 09/28/19 10:[address] Interdisciplinary Team Meeting Note: Patient was admitted on 09-23-2019 with a diagnosis of SEPSIS, UNSPECIFIED ORGANISM. Interdisciplinary Team Meetings were held . In attendance were: Software Security Consultant Dietary Nursing Pharmacist Physical Therapy Post Acute Occupational Therapy Respiratory Therapy Speech Therapy CDI IDT recommendation for Discharge Plan: WILL DISCUSS WITH PROVIDER PLAN FOR DISCHARGING PATIENT BACK HOME AND WHAT IS THE DELAY IN DISCHARGE. Anticipated Discharge date: UNKNOWN DCPIA - Discharge Planning Initial Assessment Updated by [id number]: Yenny Pulido on 09/30/19 4:06 pm * Is the patient Alert and Oriented? No * How many steps to enter\exit or inside your home? 8-10 * PCP HUR * Pharmacy [facility] * Preadmission Environment Home with Family * ADLs Independent * Equipment None * List name and contact numbers for known caregivers / representatives who currently or will assist patient after discharge: KIRIT AUGUSTE KAITLIN/ [employer]- [phone] * Verbal permission to speak to the caregivers and representatives has been obtained from the patient. N/A * Community resources currently utilized None * Additional services required to return to the preadmission environment? No * Can the patient safely return to the preadmission environment? Yes * Has this patient been hospitalized within the prior 30 days at any hospital? No External Providers External Provider: [place] Next Contact Date: Service Request Date: Service Type: Resolution: Reviewer: Comments: Last DP export: 10/21/19 9:20 am Patient Name: LUIS JOHNSON Page [phone] at 1057 All edits/amendments must be made on the electronic document DICTATION DATE: 10/21/19 105 COMPUTER REPAIR ENGINEER: JAXSON 10/21/19 1056 RPT#: [id number] DC DATE: STATUS: ADM IN [facility] [address] [place] [address] END OF REPORT
--- NOTE | 2019-10-21 11:10 | MORECARE ---
CASE MANAGEMENT DISCHARGE SUMMARY PATIENT: LUIS JOHNSON UNIT: [id number] ADM DATE: 09/23/19 AGE: 53 : 61 SEX: M ROOM/BED: D.2313 AUTHOR: DAVID,DOC PHYSICIAN: REFERRING PHYSICIAN: TONYA RM MD DATE OF SERVICE: 10/21/19 Discharge Plan Patient Name: LUIS JOHNSON Facility: [facility]:[place] : 1965 Planned Disposition: Anticipated Discharge Date: Discharge Date: Expected LOS: Initial Reviewer: [email or web address] Initial Review Date: 09/23/2019 Generated: 10/21/19 12:10 pm Comments DCP- Discharge Planning Updated by [id number]: Dione Cespedes on 10/20/19 4:[address] KIRIT JIMENEZ, CAREGIVER , VISITED THIS PM. NURSE SPOKE WITH MR JIMENEZ. HE SAYS HE WANTS [facility] FOR NURSING, A BSC, WALKER & SHOWER CHAIR. HE WANTS DISCHARGE IN EARLY AM. MR JIMENEZ WAS LEAVING THIS PM STATED HE COULD NOT TAKE THE PATIENT HOME IF THESE THINGS WERE NOT ARRANGED. CM CALLED MR JIMENEZ. CONFIRMED HIS CHOICE OF [facility]. WHEN QUESTIONED STATED HE HAD NO PREFERENCE FOR DME PROVIDER. HE STATES HE WANTS A WALKER W/ TWO WHEELS, CANE, BSC AND SHOWER CHAIR. HE DOES NOT WANT HOME HEALTH UNTIL THURSDAY OR THURSDAY. HE STATES THE PATIENT HAS A MD APPOINTMENT THURSDAY. HE WILL PROVIDE TRANSPORTATION TO HOME. HE WANTS A CXR PRIOR TO DISCHARGE. HE WANTS TO KNOW THE PATIENT CAN WALK. CM REVIEWED THE PHYSICAL THERAPY NOTES FOR 10/18 & 10/19. HE STILL QUESTIONS IF HE IS ABLE TO WALK. WAYLON CALLED [facility]. SPOKE W/ SHARLENE. SHE STATES [facility] IS CLOSED AND SHE CANNOT REVIEW THE PATIENT UNTIL THURSDAY. SHE STATED TO FAX THE REFERRAL. CM ADVISED THE CAREGIVER DID NOT WANT ANYONE TO VISIT UNTIL THURSDAY OR THURSDAY THE PATIENT HAS AN MD APPT THURSDAY. FAXED REFERRAL. WILL NEED TO F/U W/ DME ORDER IN THE AM. DCP- Discharge Planning Updated by [id number]: Yenny Pulido on 10/18/19 5:[address] Nursing Dr. Rm, POA and patient agree to discharge on Thursday home. CM will continue to follow and assist as needed with discharge planning / needs. DCP- Discharge Planning Updated by [id number]: Ramonita Ro on 10/12/19 4:[address] Patient Name: LUIS JOHNSON Admission Status: ER Accout number: [id number] Admission Date: 09-23-2019 : 1965 Admission Diagnosis:SEPSIS, UNSPECIFIED ORGANISM Attending: SAMANTHA Current LOS: 19 Anticipated DC Date: Planned Disposition: Primary Insurance: MEDICARE A & B Discharge Planning Comments: I SPOKE WITH DR. RM ABOUT DISCHARGE PLANNING/NEEDS FOR THIS PATIENT. WE DISCUSSED A DUAL DIAGNOSIS FACILITY WOULD BENEFIT THIS PATIENT. I CALLED THE POA MR. DE LA CRUZ AND HE WAS NOT IN AGREEMENT WITH THIS PLAN. HE DOES NOT FEEL THE PATIENT IS READY FOR DC FROM THIS HOSPITAL TO ANOTHER LEVEL OF CARE. POA WAS IN AGREEMENT FOR THE INPATIENT REHAB HERE BUT HE IS TOO CONFUSED AND NOT APPROPRIATE FOR THIS IP REHAB. MAY NEED TO HAVE A TEAM MEETING INCLUDING PHYSICIAN, RN AND BOILERMAKER HELPER WITH POA AND PATIENT TO DISCUSS NEXT LEVEL OF CARE PLAN. Epic Director: Ramonita Ro DCP- Discharge Planning Updated by [id number]: Yenny Pulido on 09/30/19 3:[address] CM discussed patient at IDT meeting this am. CM spoke with nursing and Jose RAMON of needing a plan for discharge. Nursing will ask Kirit when he visits today if the patient has POA or a legal decision maker or family member d/t the fact that if patient has to have placement h will have to have someone sign paperwork. DCP- Discharge Planning Updated by [id number]: Yenny Pulido on 09/30/19 3:[address] Late Entry 09/29/19 Patient Name: LUIS JOHNSON Admission Status: ER Accout number: [id number] Admission Date: 09-23-2019 : 1965 Admission Diagnosis:SEPSIS, UNSPECIFIED ORGANISM Attending: SAMANTHA Current LOS: 7 Anticipated DC Date: Planned Disposition: Primary Insurance: MEDICARE A & B Discharge Planning Comments: CM called and spoke with patient's SO Kirit Auguste to complete initial dc planning assessment. CM educated patient on the CM role and verbal consent given by patient to complete assessment. Patient lives at home with family. Patient is independent prior to admission. CM discussed availability of home health, rehab services, and medical equipment. Kirit stated that patient might need a walker and home health for PT & OT upon discharge. Kirit made it very clear that he did not feel that the patient is near ready for discharge. Kirit would not agree to any plan at this time he stated that he might consider Inpatient Rehab. Patient will have family to transport home. Patient denied known discharge needs at this time. CM will continue to follow and will assist as needed with dc plans/needs. Epic Director: Yenny Pulido DCP- Discharge Planning Updated by [id number]: Yenny Pulido on 09/28/19 7:[address] CM wasn't able to speak to patient's significant other when he was here to visit today. CM attempted to call Kirit Jimenez [phone] and didn't get an answer earlier today will try back later. CM will continue to follow and assist as needed with discharge planning / needs. DCP- Discharge Planning Updated by [email or web address]: Yenny Pulido on 09/28/19 10:[address] Interdisciplinary Team Meeting Note: Patient was admitted on 09-23-2019 with a diagnosis of SEPSIS, UNSPECIFIED ORGANISM. Interdisciplinary Team Meetings were held . In attendance were: Epic Director Dietary Nursing Pharmacist Physical Therapy Post Acute Occupational Therapy Respiratory Therapy Speech Therapy CDI IDT recommendation for Discharge Plan: WILL DISCUSS WITH PROVIDER PLAN FOR DISCHARGING PATIENT BACK HOME AND WHAT IS THE DELAY IN DISCHARGE. Anticipated Discharge date: UNKNOWN DCPIA - Discharge Planning Initial Assessment Updated by [email or web address]: Yenny Pulido on 09/30/19 4:06 pm * Is the patient Alert and Oriented? No * How many steps to enter\exit or inside your home? 8-10 * PCP HUR * Pharmacy [facility] * Preadmission Environment Home with Family * ADLs Independent * Equipment None * List name and contact numbers for known caregivers / representatives who currently or will assist patient after discharge: KIRIT AUGUSTE KAITLIN/ LIFE [employer]NER- [phone] * Verbal permission to speak to the caregivers and representatives has been obtained from the patient. N/A * Community resources currently utilized None * Additional services required to return to the preadmission environment? No * Can the patient safely return to the preadmission environment? Yes * Has this patient been hospitalized within the prior 30 days at any hospital? No Last DP export: 10/21/19 9:57 am Patient Name: LUIS JOHNSON Page [id number] at 1110 All edits/amendments must be made on the electronic document DICTATION DATE: 10/21/19 111 PARAMEDICAL AIDE: JAXSON 10/21/19 1110 RPT#: [id number] DC DATE: STATUS: ADM IN [facility] [address] [place] [address] END OF REPORT
--- NOTE | 2019-10-21 11:16 | NUR ---
FAMILY AT BEDSIDE, PT DC'D VIA WHEELCHAIR
--- NOTE | 2019-10-21 11:19 | MORECARE ---
CASE MANAGEMENT DISCHARGE SUMMARY PATIENT: LUIS JOHNSON UNIT: [id number] ADM DATE: 09/23/19 AGE: 53 : 61 SEX: M ROOM/BED: D.2313 AUTHOR: DAVID,DOC PHYSICIAN: REFERRING PHYSICIAN: TONYA RM MD DATE OF SERVICE: 10/21/19 Discharge Plan Patient Name: LUIS JOHNSON Facility: [facility]:[place] : 1965 Planned Disposition: Anticipated Discharge Date: Discharge Date: 10/21/2019 Expected LOS: Initial Reviewer: [email or web address] Initial Review Date: 09/23/2019 Generated: 10/21/19 12:18 pm Comments DCP- Discharge Planning Updated by [email or web address]: Yenny Pulido on 10/21/19 10:[address] Patient Name: LUIS JOHNSON Encounter No: [id number] : 1965 Primary Insurance: MEDICARE A & B Anticipated DC Date: Planned Disposition: HOME W HOME HEALTH External Planned Provider: : [facility] DCP follow-up note: Patient and family in agreement with discharge plan. No changes to plan. Case management will follow and assist as needed. D/C IMM 10/21/19 @ 1105 ZE SIGNED 10/21/19 @ 1105 Yenny Pulido DCP- Discharge Planning Updated by [email or web address]: Dione Cespedes on 10/20/19 4:[address] GONZALO JIMENEZ, CAREGIVER , VISITED THIS PM. NURSE SPOKE WITH MR JIMENEZ. HE SAYS HE WANTS [facility] FOR NURSING, A BSC, WALKER & SHOWER CHAIR. HE WANTS DISCHARGE IN EARLY AM. MR JIMENEZ WAS LEAVING THIS PM STATED HE COULD NOT TAKE THE PATIENT HOME IF THESE THINGS WERE NOT ARRANGED. CM CALLED MR JIMENEZ. CONFIRMED HIS CHOICE OF [facility]. WHEN QUESTIONED STATED HE HAD NO PREFERENCE FOR DME PROVIDER. HE STATES HE WANTS A WALKER W/ TWO WHEELS, CANE, BSC AND SHOWER CHAIR. HE DOES NOT WANT HOME HEALTH UNTIL THURSDAY OR THURSDAY. HE STATES THE PATIENT HAS A MD APPOINTMENT THURSDAY. HE WILL PROVIDE TRANSPORTATION TO HOME. HE WANTS A CXR PRIOR TO DISCHARGE. HE WANTS TO KNOW THE PATIENT CAN WALK. CM REVIEWED THE PHYSICAL THERAPY NOTES FOR 10/18 & 10/19. HE STILL QUESTIONS IF HE IS ABLE TO WALK. CM CALLED [facility]. SPOKE W/ SHARLENE. SHE STATES [facility] IS CLOSED AND SHE CANNOT REVIEW THE PATIENT UNTIL THURSDAY. SHE STATED TO FAX THE REFERRAL. CM ADVISED THE CAREGIVER DID NOT WANT ANYONE TO VISIT UNTIL THURSDAY OR THURSDAY THE PATIENT HAS AN MD APPT THURSDAY. FAXED REFERRAL. WILL NEED TO F/U W/ DME ORDER IN THE AM. DCP- Discharge Planning Updated by [id number]: Yenny Pulido on 10/18/19 5:[address] Nursing Dr. Rm, MICKEY and patient agree to discharge on Thursday home. CM will continue to follow and assist as needed with discharge planning / needs. DCP- Discharge Planning Updated by [id number]: Ramonita Ro on 10/12/19 4:[address] Patient Name: LUIS JOHNSON Admission Status: ER Accout number: [id number] Admission Date: 09-23-2019 : 1965 Admission Diagnosis:SEPSIS, UNSPECIFIED ORGANISM Attending: SAMANTHA Current LOS: 19 Anticipated DC Date: Planned Disposition: Primary Insurance: MEDICARE A & B Discharge Planning Comments: I SPOKE WITH DR. RM ABOUT DISCHARGE PLANNING/NEEDS FOR THIS PATIENT. WE DISCUSSED A DUAL DIAGNOSIS FACILITY WOULD BENEFIT THIS PATIENT. I CALLED THE POA MR. DE LA CRUZ AND HE WAS NOT IN AGREEMENT WITH THIS PLAN. HE DOES NOT FEEL THE PATIENT IS READY FOR DC FROM THIS HOSPITAL TO ANOTHER LEVEL OF CARE. POA WAS IN AGREEMENT FOR THE INPATIENT REHAB HERE BUT HE IS TOO CONFUSED AND NOT APPROPRIATE FOR THIS IP REHAB. MAY NEED TO HAVE A TEAM MEETING INCLUDING PHYSICIAN, RN AND CUSTOMER CARE SPECIALIST WITH POA AND PATIENT TO DISCUSS NEXT LEVEL OF CARE PLAN. Traveling Passenger Agent: Ramonita Ro DCP- Discharge Planning Updated by [email or web address]: Yenny Pulido on 09/30/19 3:[address] CM discussed patient at IDT meeting this am. CM spoke with nursing and Jose MCCRACKENN of needing a plan for discharge. Nursing will ask Gonzalo when he visits today if the patient has POA or a legal decision maker or family member d/t the fact that if patient has to have placement h will have to have someone sign paperwork. DCP- Discharge Planning Updated by [email or web address]: Yenny Pulido on 09/30/19 3:[address] Late Entry 09/29/19 Patient Name: LUIS JOHNSON Admission Status: ER Accout number: [id number] Admission Date: 09-23-2019 : 1965 Admission Diagnosis:SEPSIS, UNSPECIFIED ORGANISM Attending: SAMANTHA Current LOS: 7 Anticipated DC Date: Planned Disposition: Primary Insurance: MEDICARE A & B Discharge Planning Comments: CM called and spoke with patient's SO Gonzalo Auguste to complete initial dc planning assessment. CM educated patient on the CM role and verbal consent given by patient to complete assessment. Patient lives at home with family. Patient is independent prior to admission. CM discussed availability of home health, rehab services, and medical equipment. Gonzalo stated that patient might need a walker and home health for PT & OT upon discharge. Gonzalo made it very clear that he did not feel that the patient is near ready for discharge. Gonzalo would not agree to any plan at this time he stated that he might consider Inpatient Rehab. Patient will have family to transport home. Patient denied known discharge needs at this time. CM will continue to follow and will assist as needed with dc plans/needs. Traveling Passenger Agent: Yenny Pulido DCP- Discharge Planning Updated by [email or web address]: Yenny Pulido on 09/28/19 7:[address] CM wasn't able to speak to patient's significant other when he was here to visit today. CM attempted to call Gonzalo Jimenez [phone] and didn't get an answer earlier today will try back later. CM will continue to follow and assist as needed with discharge planning / needs. DCP- Discharge Planning Updated by [email or web address]: Yenny Pulido on 09/28/19 10:[address] Interdisciplinary Team Meeting Note: Patient was admitted on 09-23-2019 with a diagnosis of SEPSIS, UNSPECIFIED ORGANISM. Interdisciplinary Team Meetings were held . In attendance were: Traveling Passenger Agent Dietary Nursing Pharmacist Physical Therapy Post Acute Occupational Therapy Respiratory Therapy Speech Therapy CDI IDT recommendation for Discharge Plan: WILL DISCUSS WITH PROVIDER PLAN FOR DISCHARGING PATIENT BACK HOME AND WHAT IS THE DELAY IN DISCHARGE. Anticipated Discharge date: UNKNOWN DCPIA - Discharge Planning Initial Assessment Updated by [id number]: Yenny Pulido on 09/30/19 4:06 pm * Is the patient Alert and Oriented? No * How many steps to enter\exit or inside your home? 8-10 * PCP JAG * Pharmacy [facility] * Preadmission Environment Home with Family * ADLs Independent * Equipment None * List name and contact numbers for known caregivers / representatives who currently or will assist patient after discharge: GONZALO MADRIGAL/ LIFE PARTNER- [phone] * Verbal permission to speak to the caregivers and representatives has been obtained from the patient. N/A * Community resources currently utilized None * Additional services required to return to the preadmission environment? No * Can the patient safely return to the preadmission environment? Yes * Has this patient been hospitalized within the prior 30 days at any hospital? No Coverage Notice Reviewer: [email or web address] Augustin Pulido Notice Issued Date-Time: 10/21/2019 11:05 Notice Type: IM Discharge Notice Notice Delivered To: Other Relationship to Patient: Life Partner Director Card Name: GONZALO JIMENEZ Delivery Method: HAND - Hand Delivered Carmen Days: Prior Verbal Notification: Recipient Understood Notice: Yes Recipient Signature: Yes Med Rec Note Co-signed by Attending: Coverage Notice Comment: Reviewer: [email or web address] Augustin Pulido Notice Issued Date-Time: 10/21/2019 11:05 Notice Type: Patient Choice Letter Notice Delivered To: Other Relationship to Patient: Life Partner Director Card Name: GONZALO JIMENEZ Delivery Method: HAND - Hand Delivered Carmen Days: Prior Verbal Notification: Recipient Understood Notice: Yes Recipient Signature: Yes Med Rec Note Co-signed by Attending: Coverage Notice Comment: Last DP export: 10/21/19 10:10 am Patient Name: LUIS JOHNSON Page [phone] at 1119 All edits/amendments must be made on the electronic document DICTATION DATE: 10/21/19 1118 MANAGER MAIL: JAXSON 10/21/19 1118 RPT#: [id number] DC DATE:10/21/19 STATUS: DIS IN [facility] [address] [place] [address] END OF REPORT
--- NOTE | 2019-10-24 12:01 | MORECARE ---
CASE MANAGEMENT DISCHARGE SUMMARY PATIENT: LUIS JOHNSON UNIT: [id number] ADM DATE: 09/23/19 AGE: 53 : 61 SEX: M ROOM/BED: D.2313 AUTHOR: DAVID,DOC PHYSICIAN: REFERRING PHYSICIAN: TONYA RM MD DATE OF SERVICE: 10/24/19 Discharge Plan Patient Name: LUIS JOHNSON Facility: [facility]:[place] : 1965 Planned Disposition: Anticipated Discharge Date: Discharge Date: 10/21/2019 Expected LOS: Initial Reviewer: [email or web address] Initial Review Date: 09/23/2019 Generated: 10/24/19 1:00 pm Comments DCP- Discharge Planning Updated by [id number]: Yenny Pulido on 10/21/19 10:[address] Patient Name: LUIS JOHNSON Encounter No: [id number] : 1965 Primary Insurance: MEDICARE A & B Anticipated DC Date: Planned Disposition: HOME W HOME HEALTH External Planned Provider: : [facility] DCP follow-up note: Patient and family in agreement with discharge plan. No changes to plan. Case management will follow and assist as needed. D/C IMM 10/21/19 @ 1105 ZE SIGNED 10/21/19 @ 1105 Yenny Pulido DCP- Discharge Planning Updated by [email or web address]: Dione Cespedes on 10/20/19 4:[address] GONZALO JIMENEZ, CAREGIVER , VISITED THIS PM. NURSE SPOKE WITH MR JIMENEZ. HE SAYS HE WANTS [facility] FOR NURSING, A BSC, WALKER & SHOWER CHAIR. HE WANTS DISCHARGE IN EARLY AM. MR JIMENEZ WAS LEAVING THIS PM STATED HE COULD NOT TAKE THE PATIENT HOME IF THESE THINGS WERE NOT ARRANGED. CM CALLED MR JIMENEZ. CONFIRMED HIS CHOICE OF [facility]. WHEN QUESTIONED STATED HE HAD NO PREFERENCE FOR DME PROVIDER. HE STATES HE WANTS A WALKER W/ TWO WHEELS, CANE, BSC AND SHOWER CHAIR. HE DOES NOT WANT HOME HEALTH UNTIL THURSDAY OR THURSDAY. HE STATES THE PATIENT HAS A MD APPOINTMENT THURSDAY. HE WILL PROVIDE TRANSPORTATION TO HOME. HE WANTS A CXR PRIOR TO DISCHARGE. HE WANTS TO KNOW THE PATIENT CAN WALK. CM REVIEWED THE PHYSICAL THERAPY NOTES FOR 10/18 & 10/19. HE STILL QUESTIONS IF HE IS ABLE TO WALK. CM CALLED [facility]. SPOKE W/ SHARLENE. SHE STATES [facility] IS CLOSED AND SHE CANNOT REVIEW THE PATIENT UNTIL THURSDAY. SHE STATED TO FAX THE REFERRAL. CM ADVISED THE CAREGIVER DID NOT WANT ANYONE TO VISIT UNTIL THURSDAY OR THURSDAY THE PATIENT HAS AN MD APPT THURSDAY. FAXED REFERRAL. WILL NEED TO F/U W/ DME ORDER IN THE AM. DCP- Discharge Planning Updated by [email or web address]: Yenny Pulido on 10/18/19 5:[address]. Rm, MICKEY and patient agree to discharge on Thursday home. CM will continue to follow and assist as needed with discharge planning / needs. DCP- Discharge Planning Updated by [id number]: Ramonita Ro on 10/12/19 4:[address] Patient Name: LUIS JOHNOSN Admission Status: ER Accout number: [id number] Admission Date: 09-23-2019 : 1965 Admission Diagnosis:SEPSIS, UNSPECIFIED ORGANISM Attending: SAMANTHA Current LOS: 19 Anticipated DC Date: Planned Disposition: Primary Insurance: MEDICARE A & B Discharge Planning Comments: I SPOKE WITH DR. RM ABOUT DISCHARGE PLANNING/NEEDS FOR THIS PATIENT. WE DISCUSSED A DUAL DIAGNOSIS FACILITY WOULD BENEFIT THIS PATIENT. I CALLED THE POA MR. DE LA CRUZ AND HE WAS NOT IN AGREEMENT WITH THIS PLAN. HE DOES NOT FEEL THE PATIENT IS READY FOR DC FROM THIS HOSPITAL TO ANOTHER LEVEL OF CARE. POA WAS IN AGREEMENT FOR THE INPATIENT REHAB HERE BUT HE IS TOO CONFUSED AND NOT APPROPRIATE FOR THIS IP REHAB. MAY NEED TO HAVE A TEAM MEETING INCLUDING PHYSICIAN, RN AND POST OFFICE MANAGER WITH POA AND PATIENT TO DISCUSS NEXT LEVEL OF CARE PLAN. Online Education Manager: Ramonita Ro DCP- Discharge Planning Updated by [id number]: Yenny Pulido on 09/30/19 3:[address] CM discussed patient at IDT meeting this am. CM spoke with nursing and Jose MCCRACKENN of needing a plan for discharge. Nursing will ask Gonzalo when he visits today if the patient has POA or a legal decision maker or family member d/t the fact that if patient has to have placement h will have to have someone sign paperwork. DCP- Discharge Planning Updated by [id number]: Yenny Pulido on 09/30/19 3:[address] Late Entry 09/29/19 Patient Name: LUIS JOHNSON Admission Status: ER Accout number: [id number] Admission Date: 09-23-2019 : 1965 Admission Diagnosis:SEPSIS, UNSPECIFIED ORGANISM Attending: SAMANTHA Current LOS: 7 Anticipated DC Date: Planned Disposition: Primary Insurance: MEDICARE A & B Discharge Planning Comments: CM called and spoke with patient's SO Gonzalo Auguste to complete initial dc planning assessment. CM educated patient on the CM role and verbal consent given by patient to complete assessment. Patient lives at home with family. Patient is independent prior to admission. CM discussed availability of home health, rehab services, and medical equipment. Gonzalo stated that patient might need a walker and home health for PT & OT upon discharge. Gonzalo made it very clear that he did not feel that the patient is near ready for discharge. Gonzalo would not agree to any plan at this time he stated that he might consider Inpatient Rehab. Patient will have family to transport home. Patient denied known discharge needs at this time. CM will continue to follow and will assist as needed with dc plans/needs. Online Education Manager: Yenny Pulido DCP- Discharge Planning Updated by [email or web address]: Yenny Pulido on 09/28/19 7:[address] CM wasn't able to speak to patient's significant other when he was here to visit today. CM attempted to call Gonzalo Jimenez [phone] and didn't get an answer earlier today will try back later. CM will continue to follow and assist as needed with discharge planning / needs. DCP- Discharge Planning Updated by [id number]: Yenny Pulido on 09/28/19 10:[address] Interdisciplinary Team Meeting Note: Patient was admitted on 09-23-2019 with a diagnosis of SEPSIS, UNSPECIFIED ORGANISM. Interdisciplinary Team Meetings were held . In attendance were: Online Education Manager Dietary Nursing Pharmacist Physical Therapy Post Acute Occupational Therapy Respiratory Therapy Speech Therapy CDI IDT recommendation for Discharge Plan: WILL DISCUSS WITH PROVIDER PLAN FOR DISCHARGING PATIENT BACK HOME AND WHAT IS THE DELAY IN DISCHARGE. Anticipated Discharge date: UNKNOWN DCPIA - Discharge Planning Initial Assessment Updated by [email or web address]: Yenny Pulido on 09/30/19 4:06 pm * Is the patient Alert and Oriented? No * How many steps to enter\exit or inside your home? 8-10 * PCP JAG * Pharmacy [facility] * Preadmission Environment Home with Family * ADLs Independent * Equipment None * List name and contact numbers for known caregivers / representatives who currently or will assist patient after discharge: GONZALO MADRIGAL/ LIFE PARTNER- [phone] * Verbal permission to speak to the caregivers and representatives has been obtained from the patient. N/A * Community resources currently utilized None * Additional services required to return to the preadmission environment? No * Can the patient safely return to the preadmission environment? Yes * Has this patient been hospitalized within the prior 30 days at any hospital? No External Providers External Provider: [facility] Next Contact Date: Service Request Date: Service Type: Resolution: Reviewer: Comments: Coverage Notice Reviewer: [email or web address] Augustin Pulido Notice Issued Date-Time: 10/21/2019 11:05 Notice Type: IM Discharge Notice Notice Delivered To: Other Relationship to Patient: Life Partner Chief Deputy Coroner Name: GONZALO JIMENEZ Delivery Method: HAND - Hand Delivered Carmen Days: Prior Verbal Notification: Recipient Understood Notice: Yes Recipient Signature: Yes Med Rec Note Co-signed by Attending: Coverage Notice Comment: Reviewer: [email or web address] Pulido Notice Issued Date-Time: 10/21/2019 11:05 Notice Type: Patient Choice Letter Notice Delivered To: Other Relationship to Patient: Life Partner Chief Deputy Coroner Name: GONZALO JIMENEZ Delivery Method: HAND - Hand Delivered Carmen Days: Prior Verbal Notification: Recipient Understood Notice: Yes Recipient Signature: Yes Med Rec Note Co-signed by Attending: Coverage Notice Comment: Last DP export: 10/21/19 10:19 am Patient Name: LUIS JOHNSON Page [phone] at 1201 All edits/amendments must be made on the electronic document DICTATION DATE: 10/24/19 1201 BELT NOTCHER: JAXSON 10/24/19 1201 RPT#: [id number] DC DATE:10/21/19 STATUS: DIS IN [address] [address] END OF REPORT
== END 2019-10-21 11:17 | disposition home health service (06) | DRG 871 ==
LOC: D.ER 07:46 → D.MS 12:04 → D.ICU 12:04 → D.M2 12:04 → D.ICU 09-24 11:15 → D.MS 09-30 18:12 → D.ICU 10-12 22:52
PROVIDERS: Family Medicine; Internal Medicine Gastroenterology; Legal Medicine; ADMIT Emergency Medicine; ATTEND Emergency Medicine
PROC: 0DB78ZX Excision of Stomach, Pylorus, Via Natural or Artificial Opening Endoscopic, Diagnostic (ICD-10-PCS; principal; 2019-09-26 15:30)
DX: A41.9 Sepsis, unspecified organism (principal); K72.00 Acute and subacute hepatic failure without coma; J18.9 Pneumonia, unspecified organism; B17.10 Acute hepatitis C without hepatic coma; F10.231 Alcohol dependence with withdrawal delirium; K92.2 Gastrointestinal hemorrhage, unspecified; K76.6 Portal hypertension; K22.10 Ulcer of esophagus without bleeding; N17.9 Acute kidney failure, unspecified; R00.0 Tachycardia, unspecified; D72.829 Elevated white blood cell count, unspecified; D64.9 Anemia, unspecified; I10 Essential (primary) hypertension; E87.6 Hypokalemia; J38.00 Paralysis of vocal cords and larynx, unspecified; K31.89 Other diseases of stomach and duodenum; I25.10 Atherosclerotic heart disease of native coronary artery without angina pectoris; E78.5 Hyperlipidemia, unspecified; R45.1 Restlessness and agitation; Z93.0 Tracheostomy status